=== PATIENT | female | born 1950 | race Caucasian/White ===

== ENCOUNTER 2018-02-05 09:29 | Emergency (ER) | payer MEDICARE, SELFPAY ==
[2018-02-05 09:38] VITALS: BP 152/75; PULSE 86; RESP 16; TEMP 36.6; O2SAT 100
--- NOTE | 2018-02-05 10:11 | W.ED.GENAD ---
Discharge Plan Discharge Details Chief Complaint: Nausea/Vomit/Diar Clinical Impression: Diarrhea Primary Care Provider: Mona Whitmore ED Provider: Vito St Home Meds and New Rx's Prescriptions: Continue ascorbic acid (vitamin C) 1,000 MG tablet 1,000 mg PO DAILY RF: 0 Lactobacillus acidophilus 1 MG tablet 1 cap PO DAILY RF: 0 acetaminophen [Tylenol] 325 MG tablet 1 tab PO PRN PRNRF: 0 Discharge Instructions Additional Instructions: follow up with your primary care provider within 1-2 weeks if you have severe worsening abdominal pain or persistent vomit return to the emergency department Discharge Data Discharge Physician: Vito St Medical Decision Making MDM Narrative Medical decision making narrative: Pt comes in with intermittent diarrhea since Last August but has been more constant the past week. Denies any travel other than going to [place] earlier this year. No fevers, chills, chest pain, pressure. She has mild lower abdominal discomfort on exam with no acute abdominal exam findings. Given the tenderness will obtain ct to eval for diverticulitis and also eval for electrolyte abnormalities. She could have inflammatory bowel diseasea vs irritable bowel. She was advised if she can give us a stool sample I would send this for stool studies pt's labs unremarkable, mild low K. Awaiting imaging imaging on my read and Dr. butler shows no acute findings. Will have her f/u with pcp and she was not able to provide stool studies here so will send her home with this. Return precautions given Differential Diagnosis diverticulitis, ibs, irritable bowel Imaging Data Radiologic Study: Attestation: I personally reviewed and interpreted this imaging study as follows: Imaging: CT Scan Radiologist's impression: no acute findings Lab Data Lab results reviewed: Yes I reviewed the patient's lab results. HPI - General Adult General Mode of arrival: ambulatory. Date/Time Provider Initiated Documentation: 02/05/18 10:00. Limitations to Documentation: no limitations. Information obtained by: patient. History of Present Illness 67 year old F presents to the emergency department with the chief complaint of diarrhea, described as moderate, with intensity rated at 4. Quality is described as aching, and is localized to the abdomen. Patient reports no radiation. Patient started experiencing this month(s) (5) and it has been intermittent. No relieving factors improve symptom(s), No exacerbating factors reported . Patient notes other (manny abdominal pain). Patient did receive the following treatments prior to arrival, none Related Data Home Medications Medication Instructions Recorded Confirmed Lactobacillus acidophilus 1 cap PO DAILY 04/29/14 02/05/18 ascorbic acid (vitamin C) 1,000 mg PO DAILY 04/29/14 02/05/18 acetaminophen [Tylenol] 1 tab PO PRN PRN 06/25/14 02/05/18 Allergies Allergy/AdvReac Type Severity Reaction Status Date / Time doxycycline Allergy Severe systemic Unverified 02/05/18 10:33 reaction/swelling shellfish derived Allergy Unknown Unverified 02/05/18 10:33 ciprofloxacin [From Cipro] Allergy Unverified 02/05/18 10:35 cortisone AdvReac Mild shakes Unverified 02/05/18 10:33 OPIATES Allergy Intermediate PANIC Uncoded 02/05/18 10:33 ATTACKS General Stated Complaint: Nausea/Vomit/Diar UMBERTO: 3 Review of Systems Review of Systems All systems reviewed & are unremarkable except as noted in HPI and below Constitutional Denies chills, Denies fever(s) and Denies weakness Eyes Patient Denies loss of vision ENT Denies change in voice Cardiovascular Denies chest pain and Denies dyspnea Respiratory Denies dyspnea Gastrointestinal Reports abdominal pain, Reports diarrhea, Reports nausea and Denies vomiting Genitourinary Denies dysuria Musculoskeletal Denies joint swelling Integumentary/Breasts Denies rash Neurologic Denies loss of vision and Denies weakness Psychiatric Denies depression Endocrine Denies cold intolerance and Denies heat intolerance Allergic/Immunologic Reports urticaria PFSH Social History Smoking/Tobacco Use Status: Former Tobacco Use Exam Const General: no acute distress Orientation: alert [facility] Head: normal to inspection Ears: external ears normal General nose exam: external nose normal Mouth: moist mucous membranes Eyes General: appearance normal, both eyes and all related structures Neck Neck: normal visual inspection Resp Effort & Inspection: normal respiratory effort and able to speak in complete sentences Cardio Rate: regular rate GI Inspection: other (mild lower abdominal tenderness on deep palpation with no guarding or rebound, no upper abdominal pain) Palpation: soft Skin General skin exam: no rashes or lesions noted Neuro General: alert and oriented x3 Extrem General: normal to inspection Psych Mental Status: mental status grossly normal Course Vital Signs Temperature 36.6 C 02/05/18 09:38 Pulse 86 02/05/18 09:38 Respiratory Rate 16 02/05/18 09:38 Blood Pressure 152/75 H 02/05/18 09:38 Pulse Oximetry 100 02/05/18 09:38 Temperature 36.6 C 02/05/18 09:38 Pulse 86 02/05/18 09:38 Respiratory Rate 16 02/05/18 09:38 Blood Pressure 152/75 H 02/05/18 09:38 Pulse Oximetry 100 02/05/18 09:38
--- NOTE | 2018-02-05 10:14 | ED.GENADUL_ITS ---
Discharge Plan Discharge Details Chief Complaint: Nausea/Vomit/Diar Clinical Impression: Diarrhea Primary Care Provider: Mona Whitmore ED Provider: Vito St Home Meds and New Rx's Prescriptions: Continue ascorbic acid (vitamin C) 1,000 MG tablet 1,000 mg PO DAILY RF: 0 Lactobacillus acidophilus 1 MG tablet 1 cap PO DAILY RF: 0 acetaminophen [Tylenol] 325 MG tablet 1 tab PO PRN PRNRF: 0 Discharge Instructions Additional Instructions: follow up with your primary care provider within 1-2 weeks if you have severe worsening abdominal pain or persistent vomit return to the emergency department Discharge Data Discharge Physician: Vito St Medical Decision Making MDM Narrative Medical decision making narrative: Pt comes in with intermittent diarrhea since Last August but has been more constant the past week. Denies any travel other than going to [place] earlier this year. No fevers, chills, chest pain, pressure. She has mild lower abdominal discomfort on exam with no acute abdominal exam findings. Given the tenderness will obtain ct to eval for diverticulitis and also eval for electrolyte abnormalities. She could have inflammatory bowel diseasea vs irritable bowel. She was advised if she can give us a stool sample I would send this for stool studies pt's labs unremarkable, mild low K. Awaiting imaging imaging on my read and Dr. butler shows no acute findings. Will have her f/u with pcp and she was not able to provide stool studies here so will send her home with this. Return precautions given Differential Diagnosis diverticulitis, ibs, irritable bowel Imaging Data Radiologic Study: Attestation: I personally reviewed and interpreted this imaging study as follows: Imaging: CT Scan Radiologist's impression: no acute findings Lab Data Lab results reviewed: Yes I reviewed the patient's lab results. HPI - General Adult General Mode of arrival: ambulatory . Date/Time Provider Initiated Documentation: 02/05/18 10:00 . Limitations to Documentation: no limitations . Information obtained by: patient . History of Present Illness 67 year old F presents to the emergency department with the chief complaint of diarrhea, described as moderate, with intensity rated at 4. Quality is described as aching, and is localized to the abdomen. Patient reports no radiation. Patient started experiencing this month(s) (5) and it has been intermittent. No relieving factors improve symptom(s), No exacerbating factors reported . Patient notes other (manny abdominal pain). Patient did receive the following treatments prior to arrival, none Related Data Home Medications Medication Instructions Recorded Confirmed Lactobacillus acidophilus 1 cap PO DAILY 04/29/14 02/05/18 ascorbic acid (vitamin C) 1,000 mg PO DAILY 04/29/14 02/05/18 acetaminophen [Tylenol] 1 tab PO PRN PRN 06/25/14 02/05/18 Allergies Allergy/AdvReac Type Severity Reaction Status Date / Time doxycycline Allergy Severe systemic Unverified 02/05/18 10:33 reaction/swelling shellfish derived Allergy Unknown Unverified 02/05/18 10:33 ciprofloxacin [From Cipro] Allergy Unverified 02/05/18 10:35 cortisone AdvReac Mild shakes Unverified 02/05/18 10:33 OPIATES Allergy Intermediate PANIC Uncoded 02/05/18 10:33 ATTACKS General Stated Complaint: Nausea/Vomit/Diar UMBERTO: 3 Review of Systems Review of Systems All systems reviewed & are unremarkable except as noted in HPI and below Constitutional Denies chills, Denies fever(s) and Denies weakness Eyes Patient Denies loss of vision ENT Denies change in voice Cardiovascular Denies chest pain and Denies dyspnea Respiratory Denies dyspnea Gastrointestinal Reports abdominal pain, Reports diarrhea, Reports nausea and Denies vomiting Genitourinary Denies dysuria Musculoskeletal Denies joint swelling Integumentary/Breasts Denies rash Neurologic Denies loss of vision and Denies weakness Psychiatric Denies depression Endocrine Denies cold intolerance and Denies heat intolerance Allergic/Immunologic Reports urticaria PFSH Social History Smoking/Tobacco Use Status: Former Tobacco Use Exam Const General: no acute distress Orientation: alert [facility] Head: normal to inspection Ears: external ears normal General nose exam: external nose normal Mouth: moist mucous membranes Eyes General: appearance normal, both eyes and all related structures Neck Neck: normal visual inspection Resp Effort & Inspection: normal respiratory effort and able to speak in complete sentences Cardio Rate: regular rate GI Inspection: other (mild lower abdominal tenderness on deep palpation with no guarding or rebound, no upper abdominal pain) Palpation: soft Skin General skin exam: no rashes or lesions noted Neuro General: alert and oriented x3 Extrem General: normal to inspection Psych Mental Status: mental status grossly normal Course Vital Signs Temperature 36.6 C 02/05/18 09:38 Pulse 86 02/05/18 09:38 Respiratory Rate 16 02/05/18 09:38 Blood Pressure 152/75 H 02/05/18 09:38 Pulse Oximetry 100 02/05/18 09:38 Temperature 36.6 C 02/05/18 09:38 Pulse 86 02/05/18 09:38 Respiratory Rate 16 02/05/18 09:38 Blood Pressure 152/75 H 02/05/18 09:38 Pulse Oximetry 100 02/05/18 09:38
[2018-02-05 10:31] LABS: Abs Immature Grans 0.02 k/cumm (0.0-0.09); Absolute Basophil Count 0.01 k/cumm (0.0-0.2); Absolute Eosinophil Count 0.01 k/cumm (0.0-0.7); Absolute Lymphocyte Count 0.83 k/cumm (1.2-3.4); Absolute Monocyte Count 0.22 k/cumm (0.11-0.7); Absolute Neutrophil Count 4.06 k/cumm (1.2-6.7); Basophils % 0.2; Eosinophils % 0.2; HCT 42.7 % (36.0-46.0); Immature Grans % 0.4; Lymphocytes % 16.1; Mean Corp. HGB Concentration 35.1 g/dL (32.0-36.0); Mean Corpuscular Hemoglobin 30.9 pg (27.0-33.0); Mean Platelet Volume 10.6 fL (8.0-11.0); Monocytes % 4.3; Neutrophils % 78.8; Platelet Count 205 x1000/uL (130-400); RBC 4.85 m/cumm (4.00-5.20); RBC Distribution Width 11.8 % (11.7-14.6); White Blood Cell Count 5.15 k/cumm (4.4-10.8)
[2018-02-05 10:41] LABS: ALT 20 U/L (12-78); AST 22 U/L (15-37); Albumin 4.2 g/dL (3.4-5.0); Anion Gap 14.9 mmol/L (3-11); BUN 13 mg/dL (7-18); CO2 22.1 mmol/L (21.0-32.0); CREATININE 0.93 mg/dL (0.55-1.02); Calcium 9.1 mg/dL (8.5-10.1); Chloride 97 mmol/L (98-107); Glucose 213 mg/dL (70-100); Lipase 111 U/L (73-393); Potassium 3.3 mmol/L (3.5-5.1); Sodium 134 mmol/L (136-145)
[2018-02-05 11:07] LABS: Alkaline Phosphatase 55 U/L (46-116); Bilirubin, Total 0.9 mg/dL (0.2-1.0); Total Protein 7.8 g/dL (6.4-8.2)
--- NOTE | 2018-02-05 11:29 | DI.CT_ITS ---
SYMPTOM/DIAGNOSIS: NAUSEA, LOWER ABDOMINAL PAIN DIARRHEA CT ABDOMEN AND PELVIS: Comparison is made with 01 May 2016. Images were performed from the lung bases through the ischial tuberosities after IV and without oral contrast. The heart size is normal. The lung bases are clear. A 2.2 cm hypodense lesion is again noted in the right lobe of the liver, consistent with an hemangioma. The patient is status post cholecystectomy. The spleen, pancreas, adrenals and kidneys are unremarkable. The patient is status post hysterectomy. The bladder is unremarkable. There is diverticulosis of the sigmoid region. There is no evidence of diverticulitis. No bowel dilatation or wall thickening is seen. The appendix appears normal. IMPRESSION: Diverticulosis without evidence of diverticulitis. No inflammatory changes are seen involving the small or large bowel.
[2018-02-05] MEDS: Omnipaque 350 MG/ML 100 ML BTL IJ (11:31)
[2018-02-05 12:04] VITALS: BP 152/75; PULSE 86; RESP 16; TEMP 36.6; O2SAT 100
== END 2018-02-05 12:15 ==
LOC: ER 12:10
PROVIDERS: Emergency Provider Emergency Medicine; PCP Nurse Practitioner Family
DX: R19.7 Diarrhea, unspecified (principal); R10.30 Lower abdominal pain, unspecified
CPT/HCPCS: 36415; 80053; 83690; 87505; 93005; 99285; 74177; 85025; 93010; J3490

== ENCOUNTER 2018-02-06 10:59 | Outpatient (REF) | payer MEDICARE, SELFPAY ==
[2018-02-07 12:45] LABS: Campylobacter PCR SEE COMMENTS; Salmonella PCR SEE COMMENTS; Shiga Toxin PCR SEE COMMENTS; Shigella/Enteroinvasive Ecoli SEE COMMENTS
== END 2018-02-06 11:19 ==
LOC: LBN 10:59
PROVIDERS: PCP Nurse Practitioner Family; Visit Provider Emergency Medicine
DX: R19.7 Diarrhea, unspecified (principal)
CPT/HCPCS: 87505; 87324

== ENCOUNTER 2018-03-16 13:08 | Outpatient (REF) | payer MEDICARE, SELFPAY ==
[2018-03-16 21:14] LABS: Cholesterol 216 mg/dL (50-200); HDL Cholesterol 56 mg/dL (40-60); LDL CHOLESTEROL 148 mg/dL (<100); Triglyceride 81 mg/dL (30-150)
[2018-03-19 09:27] LABS: Hepatitis C Ab w Rflx HCV PCR Negative (NEGAT)
== END 2018-03-16 13:28 ==
LOC: NCHCN 13:08
PROVIDERS: PCP Nurse Practitioner Family; Visit Provider Nurse Practitioner Family
DX: I10 Essential (primary) hypertension (principal); R61 Generalized hyperhidrosis; R55 Syncope and collapse; E78.5 Hyperlipidemia, unspecified; G43.109 Migraine with aura, not intractable, without status migrainosus; M19.90 Unspecified osteoarthritis, unspecified site; Z11.59 Encounter for screening for other viral diseases
CPT/HCPCS: 80061; 83721; 86803; 84443

== ENCOUNTER 2018-04-03 00:31 | Outpatient (CLI) | payer MEDICARE, SELFPAY ==
--- NOTE | 2018-04-03 15:10 | DI.MAMMO_ITS ---
SYMPTOM/DIAGNOSIS: SCREENING, Z12.31 MAMMOGRAMS: Mammograms were interpreted according to the usual protocol including computer analysis with CAD system, tomosynthesis and C view imaging. Comparison is made with the prior examinations. Breast density, category C. No suspicious masses or microcalcifications are seen. There is a calcified nodule in the upper outer quadrant of the left breast. It is unchanged in size compared to the prior examination from 2015. The skin and axilla are unremarkable. IMPRESSION: No evidence for malignancy. Yearly mammography is recommended. Category 2. MQSA ASSESSMENT OF FINDINGS: Negative with benign findings. Category 2. Patient will receive a letter notifying them of these results. Bi-RADS category C. The breasts are heterogeneously dense, which may obscure small masses.
--- NOTE | 2018-04-03 15:30 | DI.DEXA_ITS ---
SYMPTOM/DIAGNOSIS: SCREENING FOR OSTEOPOROSIS IN POSTMENOPAUSAL WOMAN, Z78.0 DEXA SCAN: Dexa scan was performed according to the usual protocol. The scanogram is unremarkable. For the left forearm, a T score of -1.7 and a Z score of 0.1 are consistent with osteopenia and an increased fracture risk. For the left hip, a T score of -1.1 and a Z score of 0.2 are consistent with osteopenia and an increased fracture risk. For the lumbar spine, a T score of -0.6 and a Z score of 1.3 are within the normal range.
== END 2018-04-03 00:51 ==
PROVIDERS: PCP Nurse Practitioner Family; Visit Provider Nurse Practitioner Family
DX: Z12.31 Encounter for screening mammogram for malignant neoplasm of breast (principal); M85.88 Other specified disorders of bone density and structure, other site; Z78.0 Asymptomatic menopausal state
CPT/HCPCS: 77063; 77067; 77080

== ENCOUNTER 2019-07-30 10:27 | Outpatient (REF) | payer MEDICARE, SELFPAY ==
[2019-07-30 14:11] LABS: PROTEIN < 6.0 mg/dL
[2019-07-30 14:12] LABS: COMMENT (LAB VIEW ONLY) 27.17 mg/dL
[2019-07-30 14:23] LABS: Anion Gap 6.5 mmol/L (3-11); BUN 14 mg/dL (7-18); CO2 30.5 mmol/L (21.0-32.0); CREATININE 0.78 mg/dL (0.55-1.02); Calcium 9.4 mg/dL (8.5-10.1); Calculated LDL 154 mg/dL (<100); Chloride 105 mmol/L (98-107); Cholesterol 239 mg/dL (<200); Glucose 88 mg/dL (74-106); HDL Cholesterol 60 mg/dL (40-60); Potassium 4.5 mmol/L (3.5-5.1); Sodium 142 mmol/L (136-145); Triglyceride 126 mg/dL (<150)
[2019-07-30 14:24] LABS: COMMENT (LAB VIEW ONLY) 25.79 mg/dL; Microalb ug/mg Crea 10.9 ug/mg Cr
== END 2019-07-30 10:47 ==
LOC: NCHCN 10:27
PROVIDERS: PCP Nurse Practitioner Family; Visit Provider Nurse Practitioner Family
DX: I10 Essential (primary) hypertension (principal); E78.5 Hyperlipidemia, unspecified
CPT/HCPCS: 80048; 80061; 82043; 82565; 82570; 84156

== ENCOUNTER 2021-01-04 14:10 | Outpatient (CLI) | payer MEDICARE, SELFPAY ==
--- NOTE | 2021-01-04 | DI.MAMMO_ITS ---
Exam(s) MAMMO SCREENING EXAM: MAMMO SCREENING CLINICAL HISTORY: SCREENING, Z12.39 TECHNIQUE: Mammograms were interpreted according to the usual protocol including computer analysis w [facility] CAD system, tomosynthesis and C-view imaging. COMPARISON: 2014 through 2017 FINDINGS: The breasts are composed of heterogeneously dense fibroglandular densities, Breast Density category C . No suspicious masses or suspicious microcalcifications are seen. Decrease in size of the previously noted small nodule upper-outer quadrant left breast consistent with a fibroadenoma. No skin thickening or abnormal axillary lymph nodes are seen. There has been no significant change from prior exams. IMPRESSION: BI-RADS Cat 2 - Benign Findings Yearly screening mammography is recommended. Breast Density Category C, heterogeneously Dense. The mammogram demonstrates the patient's breast tissue is dense. Dense breast tissue is very common a nd is not abnormal but dense breast tissue can make it harder to find cancer on a mammogram. Also, de nse breast tissue may increase breast cancer risk. This information about the result of the mammogram report was provided to the patient to raise their awareness. Use this report when you speak with the patient about their risks for breast cancer, which includes their family history. At that time, you may recommend additional screening tests (Ultrasound or MRI) as they might be useful based on their r isk. A negative radiographic report should not delay biopsy if a dominant or clinically suspicious mass is present. Up to ten percent of cancers are not identified on mammography. A negative report may reinforce clinical impression. Adenosis and dense breasts may obscure an underlying neoplasm. False positive reports average 6 to 10%.
--- NOTE | 2021-01-04 14:30 | DI.RAD_ITS ---
Exam(s) XR TIB/FIB RT EXAM: XR TIB/FIB RT CLINICAL HISTORY: RT LEG PAIN. TECHNIQUE: 2D digital imaging was performed. COMPARISON: CR RIGHT KNEE LIMITED 1 OR 2 VIEW from 05/09/2014 CR RIGHT KNEE LIMITED 1 OR 2 VIEW from 05/09/2014 ECG EKG from 02/05/2018 ECG EKG from 02/05/2018 FINDINGS: BONES: No acute fracture is present. No bony destructive lesion is seen. There is a total knee prosth esis. No surrounding lucencies are seen. A small enchondroma is noted in the mid tibial shaft. The re is spurring at the Achilles insertion on the calcaneus. SOFT TISSUE: Normal. IMPRESSION: Unremarkable total knee prosthesis. Incidental small tibial enchondroma. DATA REPOSITORY: RADIATION DOSE DELIVERED:
== END 2021-01-04 14:30 ==
PROVIDERS: PCP Nurse Practitioner Family; Visit Provider Nurse Practitioner Family
DX: Z12.31 Encounter for screening mammogram for malignant neoplasm of breast (principal); D16.21 Benign neoplasm of long bones of right lower limb; Z96.651 Presence of right artificial knee joint
CPT/HCPCS: 77063; 77067; 73590

== ENCOUNTER 2021-02-14 05:27 | Inpatient (IN) | payer MEDICARE, SELFPAY ==
[2021-02-14] VITALS (30 sets, daily range): BP systolic 136–164; BP diastolic 66–109; PULSE 54–75; RESP 16–18; TEMP 36.1–37.1; O2SAT 96–99
--- NOTE | 2021-02-14 05:28 | ED.GENADUL_ITS ---
Discharge Plan Disposition Patient Disposition: [facility] INPATIENT Condition: Stable Discharge Details Clinical Impression: Acute diverticulitis Admit Date/Time: 02/14/21 08:36 Admit Provider: Yoana Arndt Attending Provider: Yoana Arndt Primary Care Provider: Mona Whitmore ED Provider: Jacqui Lu Discharge Data Discharge Date/Time-TO BE ENTERED AT DEPARTURE: 02/14/21 09:55 Medical Decision Making <Lex Peña MD - Last Filed: 02/14/21 19:59> Patient presenting with abdominal pain for last 24 hours. Tender with deep palpation but no guarding or rebound. Loss of appetite but no other GI symptoms. No fever she is aware of. Previous abdominal surgeries including hysterectomy and cholecystectomy. Will place line and give fluids, check laboratory studies, obtain CT of the abdomen pelvis. Laboratory studies are unremarkable. White count is normal. Urinalysis suggest possibility of UTI though symptoms not completely consistent with his. CT scan read is still pending. Patient will be signed out to oncoming physician to review CAT scan read and determine disposition. Lab Data Lab results reviewed: Yes I reviewed the patient's lab results. <Jacqui Lu DO - Last Filed: 02/15/21 17:28> Case endorsed to follow-up on CT imaging. CT imaging notes diverticulitis of the mid sigmoid colon with moderate inflammatory changes. No perforation. Findings suggestive of developing intramural abscess. CT findings reviewed with Dr. Arndt --there is significant inflammatory changes more pronounced than her previous bout of diverticulitis -- recommends and accepts pt for admission with IV antibiotics. Patient reassessed and she does endorse pain. She states this episode is worse than her previous episode of diverticulitis. She is tender in the suprapubic region but nontoxic. She is agreeable with plan for admission. She has an adverse reaction to Cipro which she states causes tachycardia. Dr. Lou agrees with plan for IV Zosyn. Will order maintenance fluid infusion and IV Tylenol. Medical Records Medical records reviewed: Yes I reviewed the patient's medical records. Imaging Data Radiologic Study: Radiologist's impression: CT Abdomen And Pelvis With Contrast Exam date and time: 02/14/2021 5:52 AM Age: 70 years old Clinical indication: Localized; Lower; Patient HX: Low abdominal pain TECHNIQUE: Imaging protocol: Computed tomography of the abdomen and pelvis with contrast. COMPARISON: CT Abdomen^ROUTINE ABDOMEN PELVIS WITH CONTRAST (Adult) 02/05/2018 11:11 AM FINDINGS: Lungs: Mild dependent changes at the lung bases. Liver: Stable 2 x 1.4 cm hypoattenuating subcapsular lesion in the lateral right hepatic lobe, which may represent a hemangioma, and has been seen on studies dating back to 03/01/2016. Focal fatty infiltration of the liver is seen adjacent to the falciform ligament. Otherwise unremarkable liver. Gallbladder and bile ducts: The gallbladder is surgically absent. No biliary dilatation. Pancreas: Normal. No ductal dilation. Spleen: Normal. No splenomegaly. Adrenal glands: Normal. No mass. Kidneys and ureters: Normal. No hydronephrosis. Stomach and bowel: Scattered colonic diverticula. The mid sigmoid colon demonstrates moderate inflammatory changes, with wall thickening and pericolonic fat stranding. The inflamed colonic segment measures approximately 7 cm in length. There is an approximately 2 x 1.7 x 0.8 cm mildly rim enhancing low-attenuation focus in the wall of the inflamed segment, which may represent a developing intramural abscess (image 63/series 4, image 48/series 6). No other gross bowel abnormalities. No bowel obstruction. Appendix: No evidence of appendicitis. Intraperitoneal space: Small amount of free fluid in the cul-de-sac. No evidence of intraperitoneal free air. Vasculature: Unremarkable. No abdominal aortic aneurysm. Lymph nodes: Unremarkable. No enlarged lymph nodes. Urinary bladder: Unremarkable as visualized. Reproductive: The uterus is surgically absent. Bones/joints: No acute or suspicious osseous abnormalities. Grade I degenerative anterior spondylolisthesis of L4 on L5. Mild to moderate disc space height loss at L4/L5. Soft tissues: Unremarkable. IMPRESSION: 1. Diverticulitis of the mid sigmoid colon, with moderate inflammatory changes. No perforation. Findings suggestive of developing intramural abscess. 2. Small amount of free fluid in the cul-de-sac. Lab Data Lab results reviewed: Yes I reviewed the patient's lab results. HPI <Lex Peña MD - Last Filed: 02/14/21 19:59> General Mode of arrival: ambulatory . Date/Time Provider Initiated Documentation: 02/14/21 05:28 . Limitations to Documentation: no limitations . Information obtained by: patient, RN notes reviewed and old records reviewed . HPI Narrative: Patient presents to ED with lower abdominal pain for the last 24 hours. Pain is constant but waxes and wanes in intensity. There is no abdomen pelvis the nature. She has no associated nausea, vomiting, diarrhea. She has no urinary symptoms. This seems to be some radiation to the back and rectal area. She has loss of appetite. She denies fever. Previous hysterectomy and cholecystectomy but is pretty sure she still has her appendix. Related Data Home Medications Medication Instructions Recorded Confirmed Lactobacillus acidophilus 1 cap PO DAILY 04/29/14 02/14/21 ascorbic acid (vitamin C) 1,000 mg PO DAILY 04/29/14 02/14/21 acetaminophen [Tylenol] 1 tab PO PRN PRN 06/25/14 02/14/21 epinephrine 0.3 mg SUBCUT DIRECTED PRN 02/14/21 02/14/21 hydrochlorothiazide 12.5 mg PO DAILY 02/14/21 02/14/21 propranolol 20 mg PO BID 02/14/21 02/14/21 simvastatin 40 mg PO DAILY 02/14/21 02/14/21 Allergies Allergy/AdvReac Type Severity Reaction Status Date / Time doxycycline Allergy Severe systemic Unverified 02/14/21 05:36 reaction/swelling shellfish derived Allergy Unknown Unverified 02/14/21 05:36 ciprofloxacin [From Cipro] Allergy Unverified 02/14/21 05:36 cortisone AdvReac Mild shakes Unverified 02/14/21 05:36 OPIATES Allergy Intermediate PANIC Uncoded 02/14/21 05:36 ATTACKS General UMBERTO: 3 Review of Systems <Lex Peña MD - Last Filed: 02/14/21 19:59> Narrative: As documented in HPI otherwise negative as below. Const: no fever, chills, weakness Resp: no cough, SOB, pleuritic pain CV: no CP, diaphoresis, edema, syncope GI: no nausea, vomiting, diarrhea Neuro: no headache, numbness, focal weakness, confusion PFSH <Lex Peña MD - Last Filed: 02/14/21 19:59> Medical History Chronic migraine (07/07/14) Essential hypertension Hx of skin cancer, basal cell Surgical History S/P cholecystectomy S/P hysterectomy S/P TKR (total knee replacement) Family History Mother Colon cancer Social History Smoking/Tobacco Use Status: Former Tobacco Use Smoking risk assessment performed?: Yes Alcohol Intake: never Drug use: Never Substance use type: does not use Do you feel safe at home: Yes Do you feel safe in your relationship?: Yes Exam <Lex Peña MD - Last Filed: 02/14/21 19:59> Narrative Exam Narrative: Const: WDWN female in NAD. HEENT: NC/AT. Normal facial exam. Eyes: Normal conjunctiva and sclera. Neck: Supple. Trachea midline. Lungs: Normal respiratory effort. Lungs are clear. Cor: RRR without murmur/gallop. Good radial pulses. GI: Soft and ND. Some tenderness LLQ/suprapubic with deep palpation. No guarding or rebound. Neuro: A+O x 3. Normal speech, mentation, gait. Cranial nerves II - XII grossly intact. No gross motor or sensory deficit. Ext: No C/C/E. Skin: Warm and dry without rash. Sign Out <Lex Peña MD - Last Filed: 02/14/21 19:59> Sign Out Data: Sign Out Comment: Pending CT read. Last updated by Lex Peña MD at 02/14/21 07:51
--- NOTE | 2021-02-14 05:45 | DI.CT_ITS ---
Exam(s) CT ABDOMEN PELVIS W EXAM: CT ABDOMEN PELVIS W INDICATION: low abdominal pain. TECHNIQUE: FINDINGS: CT examination of the abdomen and pelvis was performed with a bolus infusion of 84 cc of Omnipaque 35 0. Images obtained through the lung bases are unremarkable. The liver contains multiple small stable low-attenuation lesions, likely hemangioma period. Gallbladder and bile ducts are CT normal. Pancreas appears normal. Spleen is unremarkable in appearance. Adrenals appear normal. The kidneys are unremarkable with no evidence of hydronephrosis, nephrolithiasis, or renal mass.. Ur inary bladder unremarkable. Abdominal aorta is of normal diameter and no major vascular abnormality is seen. No abdominal wall hernia. No abdominal or pelvic adenopathy. Uterus is atrophic or absent. No pelvic mass identified. Appendix is not specifically visualized but there is no evidence of appendicitis. Note is made of ma rked wall thickening of sigmoid colon with pericolonic fat edema, small quantity of free pelvic fluid , and suspected approximately 2 cm greatest diameter intramural abscess, the findings as described ar e consistent with acute diverticulitis. No evidence of perforation into the peritoneal cavity. No r emote abscess formation identified. No evidence of obstruction. IMPRESSION: Findings consistent with acute sigmoid diverticulitis as described above. Possible small intramural abscess. No evidence of perforation or obstruction. RADIATION DOSE DELIVERED: 727.49mGy.cm Total DLP 727.49mGy.cm Total DLP CTDIvol RADIATION OPTIMIZATION: All CT scans at this facility use at least one of these dose optimization te chniques: automated exposure control; mA and/or kV adjustment per patient size (includes targeted exa ms where dose is matched to clinical indication); or iterative reconstruction.
[2021-02-14] MEDS: Lactated Ringers 1,000 ML 1000 ML IV (05:55)
[2021-02-14 06:07] LABS: Abs Immature Grans 0.03 10^3/uL (0.0-0.06); Absolute Basophil Count 0.02 10^3/uL (0.0-0.2); Absolute Eosinophil Count 0.07 10^3/uL (0.0-0.7); Absolute Lymphocyte Count 2.24 10^3/uL (1.2-3.4); Absolute Monocyte Count 0.71 10^3/uL (0.1-0.8); Absolute Neutrophil Count 5.55 10^3/uL (1.2-6.7); Basophils % 0.2; Eosinophils % 0.8; HCT 40.8 % (36.0-46.0); HGB 13.9 g/dL (11.2-15.7); Immature Grans % 0.3; MCH 30.9 pg (27.0-33.0); MCHC 34.1 % (32.0-36.0); MCV 90.7 fL (80-95); MPV 10.1 fL (8.0-11.0); Monocytes % 8.2; Neutrophils % 64.5; Nucleated RBC 0 %; Platelet Count 221 10^3/uL (130-400); RDW 11.8 % (11.7-14.6); RDW-SD 39.6 fL; WBC 8.62 10^3/uL (4.4-10.8)
[2021-02-14 06:25] LABS: ALT 20 U/L (14-59); AST 18 U/L (15-37); Albumin 3.9 g/dL (3.4-5.0); Alkaline Phosphatase 41 U/L (46-116); Anion Gap 6.1 mmol/L (3-11); BUN 14 mg/dL (7-18); Bilirubin, Total 0.7 mg/dL (0.2-1.0); CO2 30.9 mmol/L (21.0-32.0); Calcium 9.3 mg/dL (8.5-10.1); Chloride 102 mmol/L (98-107); Estimated GFR 54.97 (mL/min/1.73m2); Glucose 105 mg/dL (74-106); Lipase 82 U/L (73-393); Potassium 3.5 mmol/L (3.5-5.1); Sodium 139 mmol/L (136-145); Total Protein 7.1 g/dL (6.4-8.2)
[2021-02-14] MEDS: Omnipaque 350 MG/ML 100 ML BTL IJ (06:32)
--- NOTE | 2021-02-14 06:36 | NUR.NOTE ---
To DI per cart, with lidar technician.Nursing Note:
[2021-02-14 07:30] LABS: Bilirubin Negative (Negative); Blood Trace-intact (Negative); Clarity Sl Cloudy (Clear); Glucose Negative (Negative); Ketones Negative (Negative); Leukocyte Esterase Small (Negative); Nitrite Negative (Negative); Specific Gravity 1.015 (1.005-1.025); Urobilinogen 0.2 EU/dL (Up TO 0.2)
[2021-02-14 07:40] LABS: Bacteria Few HPF (Negative); Crystals Negative HPF (Negative); Epithelial Cells Rare HPF (Negative); Mucus Trace (Negative)
[2021-02-14 07:41] LABS: C & S Indicated? Yes; Casts Negative LPF (Negative)
--- NOTE | 2021-02-14 08:09 | DI.VRAD_ITS ---
PROCEDURE INFORMATION: Exam: CT Abdomen And Pelvis With Contrast Exam date and time: 02/14/2021 5:52 AM Age: 70 years old Clinical indication: Localized; Lower; Patient HX: Low abdominal pain TECHNIQUE: Imaging protocol: Computed tomography of the abdomen and pelvis with contrast. COMPARISON: CT Abdomen^ROUTINE ABDOMEN PELVIS WITH CONTRAST (Adult) 02/05/2018 11:11 AM FINDINGS: Lungs: Mild dependent changes at the lung bases. Liver: Stable 2 x 1.4 cm hypoattenuating subcapsular lesion in the lateral right hepatic lobe, which may represent a hemangioma, and has been seen on studies dating back to 03/01/2016. Focal fatty infiltration of the liver is seen adjacent to the falciform ligament. Otherwise unremarkable liver. Gallbladder and bile ducts: The gallbladder is surgically absent. No biliary dilatation. Pancreas: Normal. No ductal dilation. Spleen: Normal. No splenomegaly. Adrenal glands: Normal. No mass. Kidneys and ureters: Normal. No hydronephrosis. Stomach and bowel: Scattered colonic diverticula. The mid sigmoid colon demonstrates moderate inflammatory changes, with wall thickening and pericolonic fat stranding. The inflamed colonic segment measures approximately 7 cm in length. There is an approximately 2 x 1.7 x 0.8 cm mildly rim enhancing low-attenuation focus in the wall of the inflamed segment, which may represent a developing intramural abscess (image 63/series 4, image 48/series 6). No other gross bowel abnormalities. No bowel obstruction. Appendix: No evidence of appendicitis. Intraperitoneal space: Small amount of free fluid in the cul-de-sac. No evidence of intraperitoneal free air. Vasculature: Unremarkable. No abdominal aortic aneurysm. Lymph nodes: Unremarkable. No enlarged lymph nodes. Urinary bladder: Unremarkable as visualized. Reproductive: The uterus is surgically absent. Bones/joints: No acute or suspicious osseous abnormalities. Grade I degenerative anterior spondylolisthesis of L4 on L5. Mild to moderate disc space height loss at L4/L5. Soft tissues: Unremarkable. IMPRESSION: 1. Diverticulitis of the mid sigmoid colon, with moderate inflammatory changes. No perforation. Findings suggestive of developing intramural abscess. 2. Small amount of free fluid in the cul-de-sac. Dictated and Authenticated by: Sara Velasquez MD. Ordering:SHAKIRA Burnett MD
--- NOTE | 2021-02-14 08:53 | HPE_ITS ---
Date of service: 02/14/21 Time of Service: 10:57 Assessment and Plan Assessment and plan (1) Acute diverticulitis: Status: Acute Assessment and plan: -Continue supportive care with IV Antibiotics, curre ntly on Zosyn, IVF and bowel rest -Hopeful to start clears tomorrow if pain is improved and continue liquid diet with ensure supplementation until pain is resolved -Low fiber diet education -Lovenox and Protonix for DVT and GI prophylaxis -Encourage ambulation -Home meds ordered -Anticipate DC home with PO ABX unless clinically worsens (2) Essential hypertension: Status: Chronic (3) Chronic migraine: Status: Chronic History of Present Illness Narrative: 70 year old female with a history of 1 previous episode of uncomplicated diverticulitis that occurred 2 days after a colonoscopy in 2016 who presented to the emergency department with crampy lower abdominal discomfort that has been worsening over the last 2-3 days. Patient states she has been nervous to get another colonoscopy as her previous episode of diverticulitis occurred immediately after it. She states this episode is worse than the previous one with more significant discomfort. She denies any fevers, chills, nausea or vomiting. 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 She understands the reason behind IV antibiotics as a larger portion of her colon is inflamed and edematous with a possible intramural abscess forming. She has only required Tylenol for pain control thus far and was started on IV Zosyn in the emergency department. She is mostly vegetarian and eats mostly organic without any history of changes in stool formation or patterns. She does express concern that her mother had colon cancer in her 70's but appears to have eliminated all of the environmental factors. She does also have a remote history of Typhoid fever while living in [place] several years ago. Review of Systems Constitutional Constitutional: Denies anorexia, Denies chills, Denies fatigue and Denies fever(s) Cardiovascular Cardiovascular: Denies chest pain and Denies dyspnea Respiratory Respiratory: Denies dyspnea Gastrointestinal Gastrointestinal: Reports abdominal pain (lower abdomen L>R), Denies change in bowel habits, Denies change in stool character, Denies constipation, Denies diarrhea, Denies nausea and Denies vomiting Genitourinary Genitourinary: Denies dysuria Endocrine Endocrine: Denies fatigue [facility] Medical History Chronic migraine (07/07/14) Essential hypertension Hx of skin cancer, basal cell Surgical History S/P cholecystectomy S/P hysterectomy S/P TKR (total knee replacement) Family History Mother Colon cancer Social History Smoking/Tobacco Use Status: Former Tobacco Use Smoking risk assessment performed?: Yes Alcohol Intake: never Drug use: Never Substance use type: does not use Do you feel safe at home: Yes Do you feel safe in your relationship?: Yes Meds Allergies and Home Medications Allergies Allergy/AdvReac Type Severity Reaction Status Date / Time doxycycline Allergy Severe systemic Unverified 02/14/21 05:36 reaction/swelling shellfish derived Allergy Unknown Unverified 02/14/21 05:36 ciprofloxacin [From Cipro] Allergy Unverified 02/14/21 05:36 cortisone AdvReac Mild shakes Unverified 02/14/21 05:36 OPIATES Allergy Intermediate PANIC Uncoded 02/14/21 05:36 ATTACKS Home Medications Medication Instructions Recorded Confirmed Type Lactobacillus acidophilus 1 cap PO DAILY 04/29/14 02/14/21 History ascorbic acid (vitamin C) 1,000 mg PO DAILY 04/29/14 02/14/21 History acetaminophen [Tylenol] 1 tab PO PRN PRN 06/25/14 02/14/21 History epinephrine 0.3 mg SUBCUT DIRECTED PRN 02/14/21 02/14/21 History hydrochlorothiazide 12.5 mg PO DAILY 02/14/21 02/14/21 History propranolol 20 mg PO BID 02/14/21 02/14/21 History simvastatin 40 mg PO DAILY 02/14/21 02/14/21 History Exam Const General: cooperative, healthy appearing, comfortable and no acute distress Eyes General: appearance normal, both eyes and all related structures Resp Effort & Inspection: normal respiratory effort and no audible wheezes Cardio Rate: regular rate Rhythm: regular rhythm GI Inspection: non-distended Palpation: soft, no guarding and tender (mild, not peritoneal) in the LLQ and suprapubicly Percussion: normal to percussion Skin General skin exam: no rashes or lesions noted Neuro General: patient alert, patient awake and patient oriented x3 Results Labs Result diagrams: 02/14/21 05:50 02/14/21 05:50 Labs: Laboratory Results - last 24 hr 02/14/21 02/14/21 02/14/21 05:50 05:50 07:05 WBC 8.62 RBC 4.50 Hgb 13.9 Hct 40.8 MCV 90.7 MCH 30.9 MCHC 34.1 RDW 11.8 Plt Count 221 MPV 10.1 Immature Gran % 0.3 Neutrophils % 64.5 Lymphocytes % 26.0 Monocytes % 8.2 Eosinophils % 0.8 Basophils % 0.2 Nucleated RBC % 0 Absolute Neutrophils 5.55 Absolute Lymphocytes 2.24 Absolute Monocytes 0.71 Absolute Eosinophils 0.07 Absolute Basophils 0.02 Sodium 139 Potassium 3.5 Chloride 102 Carbon Dioxide 30.9 Anion Gap 6.1 BUN 14 Creatinine 1.0 Estimated GFR/1.73 m2 54.97 Glucose 105 Calcium 9.3 Total Bilirubin 0.7 AST 18 ALT 20 Alkaline Phosphatase 41 L Total Protein 7.1 Albumin 3.9 Lipase 82 Urine Color Yellow Urine Clarity Sl Cloudy Urine pH 7.0 Ur Specific Rembrandt 1.015 Urine Protein Negative Urine Ketones Negative Urine Blood Trace-intact H Urine Nitrite Negative Urine Bilirubin Negative Urine Urobilinogen 0.2 Ur Leukocyte Esterase Small H Urine RBC 3-5 H Urine WBC 5-10 Ur Epithelial Cells Rare Urine Crystals Negative Urine Bacteria Few Urine Casts Negative Urine Mucus Trace Ur Culture Indicated? Yes Urine Glucose Negative Last Vital Signs Temp 97.0 F L 02/14/21 07:12 Pulse 58 L 02/14/21 07:45 Resp 18 02/14/21 05:30 BP 157/68 H 02/14/21 07:45 Pulse Ox 96 02/14/21 07:50
[2021-02-14] MEDS: ACETAMINOPHEN 1,000 MG/100 ML BTL 400 MG IVPB (09:02)
[2021-02-14] MEDS: Normal Saline 1,000 ML 75 ML IV ×2 (09:02→20:57)
[2021-02-14] MEDS: PIPERACILLIN/TAZO 3.375 GM in Normal Saline 50 ML IVPB (09:10)
[2021-02-14 09:28] LABS: Source Nasal/Nares
[2021-02-14] MEDS: Pantoprazole 40 MG VIAL IVP (12:22)
[2021-02-14] MEDS: Enoxaparin 40 MG/0.4 ML SYR SC (12:22)
[2021-02-14] MEDS: Normal Saline Flush 10 ML SYR IVP ×2 (12:22→20:56)
[2021-02-14 14:19] LABS: COVID-19 PCR Negative (Negative)
[2021-02-14] MEDS: Acetaminophen 325 MG TAB 650 MG PO (19:21)
[2021-02-14] MEDS: Propranolol 20 MG TAB PO (19:21)
[2021-02-14] MEDS: hydrOXYzine HCL 25 MG TAB PO (20:56)
[2021-02-15] VITALS (9 sets, daily range): BP systolic 125–167; BP diastolic 65–90; PULSE 62–112; RESP 12–20; TEMP 36.5–37.2; O2SAT 96–100
[2021-02-15 07:30] LABS: Abs Immature Grans 0.01 10^3/uL (0.0-0.06); Absolute Basophil Count 0.01 10^3/uL (0.0-0.2); Absolute Eosinophil Count 0.04 10^3/uL (0.0-0.7); Absolute Lymphocyte Count 1.61 10^3/uL (1.2-3.4); Absolute Monocyte Count 0.44 10^3/uL (0.1-0.8); Absolute Neutrophil Count 3.01 10^3/uL (1.2-6.7); Basophils % 0.2; Eosinophils % 0.8; HCT 34.3 % (36.0-46.0); HGB 11.5 g/dL (11.2-15.7); Immature Grans % 0.2; Lymphocytes % 31.4; MCH 30.8 pg (27.0-33.0); MCHC 33.5 % (32.0-36.0); MPV 10.6 fL (8.0-11.0); Monocytes % 8.6; Neutrophils % 58.8; Nucleated RBC 0 %; Platelet Count 186 10^3/uL (130-400); RBC 3.73 10^6/uL (3.93-5.22); RDW 11.9 % (11.7-14.6); RDW-SD 40.5 fL; WBC 5.12 10^3/uL (4.4-10.8)
[2021-02-15 07:43] LABS: Prothrombin Time 10.4 sec (9.3-11.0)
[2021-02-15 07:56] LABS: ALT 32 U/L (14-59); AST 31 U/L (15-37); Albumin 3.1 g/dL (3.4-5.0); Alkaline Phosphatase 34 U/L (46-116); Anion Gap 11.8 mmol/L (3-11); BUN 9 mg/dL (7-18); CO2 26.2 mmol/L (21.0-32.0); CREATININE 0.9 mg/dL (0.55-1.02); Calcium 8.5 mg/dL (8.5-10.1); Chloride 106 mmol/L (98-107); Glucose 60 mg/dL (74-106); Potassium 3.1 mmol/L (3.5-5.1); Sodium 144 mmol/L (136-145)
[2021-02-15] MEDS: hydroCHLOROthiazide 12.5 MG TAB PO (08:56)
[2021-02-15] MEDS: Propranolol 20 MG TAB PO ×2 (08:56→19:57)
--- NOTE | 2021-02-15 09:26 | W.PM.PROGNOT ---
Date of Service Date of service: 02/15/21 Time of Service: 09:26 Assessment and Plan Assessment and plan (1) Acute diverticulitis: Status: Acute Assessment and plan: Patient expresses that she has a very important appt tomorrow and is requesting to be d/c JOSHUA for this appt. WBC continues to be nml Start clear liquid diet. Pain is decreased today. -Continue supportive care with IV Antibiotics, currently on Zosyn, IVF and bowel rest -Lovenox and Protonix for DVT and GI prophylaxis -Encourage ambulation and sitting up in the chair -Home meds ordered -Anticipate DC home with PO ABX unless clinically worsens (2) Essential hypertension: Status: Chronic (3) Chronic migraine: Status: Chronic Subjective Subjective Interval history since last seen: Patient reports that she continues to have abdominal discomfort and today she is feeling hungry. Exam Const General: cooperative, healthy appearing and comfortable Orientation: alert and oriented x3 Resp Effort & Inspection: normal respiratory effort, no audible wheezes and no cough GI Inspection: normal to inspection Palpation: soft, no guarding and tender in the LLQ Auscultation: hypoactive bowel sounds Objective Last Vital Signs Temp 36.7 C 02/15/21 08:29 Pulse 76 02/15/21 08:29 Resp 18 02/15/21 08:29 BP 132/67 02/15/21 08:29 Pulse Ox 96 02/15/21 08:29 Laboratory Results - last 24 hr 02/14/21 02/15/21 02/15/21 09:25 06:37 06:37 WBC 5.12 D RBC 3.73 L Hgb 11.5 D Hct 34.3 L MCV 92.0 MCH 30.8 MCHC 33.5 RDW 11.9 Plt Count 186 MPV 10.6 Immature Gran % 0.2 Neutrophils % 58.8 Lymphocytes % 31.4 Monocytes % 8.6 Eosinophils % 0.8 Basophils % 0.2 Nucleated RBC % 0 Absolute Neutrophils 3.01 Absolute Lymphocytes 1.61 Absolute Monocytes 0.44 Absolute Eosinophils 0.04 Absolute Basophils 0.01 PT INR Sodium 144 Potassium 3.1 L Chloride 106 Carbon Dioxide 26.2 Anion Gap 11.8 H BUN 9 Creatinine 0.9 Estimated GFR/1.73 m2 >= 60.00 Glucose 60 L Calcium 8.5 Total Bilirubin 1.0 AST 31 ALT 32 Alkaline Phosphatase 34 L Total Protein 6.0 L Albumin 3.1 L COVID-19 Source Nasal/Nares SARS-CoV-2 (PCR) Negative 02/15/21 06:37 WBC RBC Hgb Hct MCV MCH MCHC RDW Plt Count MPV Immature Gran % Neutrophils % Lymphocytes % Monocytes % Eosinophils % Basophils % Nucleated RBC % Absolute Neutrophils Absolute Lymphocytes Absolute Monocytes Absolute Eosinophils Absolute Basophils PT 10.4 INR 1.0 Sodium Potassium Chloride Carbon Dioxide Anion Gap BUN Creatinine Estimated GFR/1.73 m2 Glucose Calcium Total Bilirubin AST ALT Alkaline Phosphatase Total Protein Albumin COVID-19 Source SARS-CoV-2 (PCR)
--- NOTE | 2021-02-15 10:15 | RT.EKG_ITS ---
APPROVED REPORT Exam: Resting ECG Reason for Exam: chest pain Patient Location: I HR:71 bpm ECG Measurements Heart Rate 71 AXIS TX 185 P 82 QRSd 110 QRS 18 QT 415 T 41 QTc 452 Conclusion Sinus rhythm...normal P axis, V-rate 60- 99 Nonspecific T abnormalities, anterior leads...T <-0.10mV, V2-V4
[2021-02-15 11:37] LABS: Troponin I < 0.05 ng/mL (<0.06)
[2021-02-15] MEDS: Normal Saline 1,000 ML 75 ML IV (11:39)
[2021-02-15] MEDS: Pantoprazole 40 MG VIAL IVP (12:06)
[2021-02-15] MEDS: Enoxaparin 40 MG/0.4 ML SYR SC (12:06)
[2021-02-15] MEDS: Normal Saline Flush 10 ML SYR IVP ×2 (12:07→19:58)
[2021-02-15] MEDS: Potassium Chloride 20 MEQ TABCR 40 MEQ PO ×2 (13:02→15:43)
--- NOTE | 2021-02-15 16:19 | INITIAL_ITS ---
- If Service Date Differs Date of service: 02/15/21 Time of Service: 16:19 Care Management Initial Assess REASON FOR HOSPITALIZATION:: Uncomplicated Diverticulitis PAST MEDICAL HISTORY/PAST SURGICAL HISTORY:: Medical History. Chronic migraine (07/07/14). Essential hypertension. Hx of skin cancer, basal cell. Surgical History. S/P cholecystectomy. S/P hysterectomy. S/P TKR (total knee replacement) PREVIOUS FUNCTIONAL STATUS/SOCIAL/FAMILY SUPPORTS:: Karl lives in [facility] with her , Steve. She is independent at baseline. CURRENT FUNCTIONAL STATUS:: Karl was lying in bed when CM met with her. She was holding her forehead with her eyes closed, and reported that she was having a very bad headache and was not able to engage in conversation. She stated that she could not understand CM while wearing the mask, but CM stated that the mask cannot be removed due to policy. CM found her RN, and reported the headache. Her RN reported that it will be attended to shortly. CM will continue to follow. ADVANCE DIRECTIVES:: On file, Steve Valenzuela (spouse) listed as agent. Laurence Jauregui (sibling) listed as alternate agent. Has patient been provided with info about the portal/API?: Yes Did the patient sign up for the portal?: Yes (active) CODE STATUS:: Full Code INSURANCE COVERAGE / FINANCIAL ISSUES:: [place]/ [facility]/ [facility]/ Financial assist 47% CURRENT HOME/COMMUNITY SERVICES/EQUIPMENT:: No known equipment or services in the community currently. PRIMARY CARE PHYSICIAN:: Mona Whitmore POTENTIAL DISCHARGE NEEDS:: Evaluations for further needs, follow up appointments. PATIENT/FAMILY EDUCATION NEEDS:: Review discharge instructions regarding activity levels and medications, discussion of self care needs including ask me three. ANTICIPATED BARRIERS TO DISCHARGE:: None identified at this time. TRANSPORTATION:: Via private vehicle by family. PLAN:: Anticipate Karl will return home when medically cleared by MD. She will follow up with her PCP and discharge plan of care. Her will drive her home via private vehicle. CM will continue to follow.
--- NOTE | 2021-02-15 16:32 | W.MEDCONSULT ---
Date of service: 02/15/21 Time of Service: 16:32 Assessment and Plan Assessment and plan (1) Chest pain: Start date: 02/15/21 Start time: 16:53 Status: Resolved Assessment and plan: Resolved after passing flatus. EKG with NSR, and no ectopic beats or ST elevation Trops negative. Will be more than happy to consult again if needed. History of Present Illness History of Present Illness Chief Complaint: Chest pain Narrative: Patient states that she had midsternal chest pain that radiated to her left side and back. EKG was normal SR no ectopic beats or ST elevation, troponin was negative. Did state she passed flatus and after passing flatus she felt much better, chest and back pain resolved. HR is normal. Therefore we sill sign off at this time. Thank you for the consult, reconsult if needed. Review of Systems All systems reviewed & are unremarkable except as noted in HPI and below PFSH Medical History Chronic migraine (07/07/14) Essential hypertension Hx of skin cancer, basal cell Surgical History S/P cholecystectomy S/P hysterectomy S/P TKR (total knee replacement) Family History Mother Colon cancer Social History Smoking/Tobacco Use Status: Former Tobacco Use Smoking risk assessment performed?: Yes Alcohol Intake: never Drug use: Never Substance use type: does not use Do you feel safe at home: Yes Do you feel safe in your relationship?: Yes Exam Const General: cooperative, comfortable and no acute distress Nutritional Appearance: thin Orientation: alert, awake and oriented x3 Eyes Eyelids: eyelids normal Pupils: PERRL EOM: EOM intact bilaterally Neck Neck: normal visual inspection and no JVD Lymphatic: no lymphadenopathy noted Resp Effort & Inspection: normal respiratory effort Auscultation: clear to auscultation bilaterally Cardio Jugular venous pressure: no JVD Rhythm: regular rhythm Heart Sounds: S1 normal GI Auscultation: normal bowel sounds Other: pain to bilateral Lower quads General: No CVA tenderness and deferred Back/Spine/Pelvis Back: no CVA tenderness Cervical Spine: normal cervical lordosis Skin General skin exam: no rashes or lesions noted Neuro General: patient alert, patient awake and patient oriented x3 Cognition: normal cognition Speech: speech normal Gait: normal gait Extrem General: normal to inspection, full ROM and no clubbing, cyanosis or edema Results Last Vital Signs Temp 37.1 C 02/15/21 12:30 Pulse 80 02/15/21 12:30 Resp 16 02/15/21 12:30 BP 131/86 02/15/21 12:30 Pulse Ox 98 02/15/21 12:30 Labs Result diagrams: 02/15/21 06:37 02/15/21 06:37 Labs: Laboratory Results - last 24 hr 02/15/21 02/15/21 02/15/21 06:37 06:37 06:37 WBC 5.12 D RBC 3.73 L Hgb 11.5 D Hct 34.3 L MCV 92.0 MCH 30.8 MCHC 33.5 RDW 11.9 Plt Count 186 MPV 10.6 Immature Gran % 0.2 Neutrophils % 58.8 Lymphocytes % 31.4 Monocytes % 8.6 Eosinophils % 0.8 Basophils % 0.2 Nucleated RBC % 0 Absolute Neutrophils 3.01 Absolute Lymphocytes 1.61 Absolute Monocytes 0.44 Absolute Eosinophils 0.04 Absolute Basophils 0.01 PT 10.4 INR 1.0 Sodium 144 Potassium 3.1 L Chloride 106 Carbon Dioxide 26.2 Anion Gap 11.8 H BUN 9 Creatinine 0.9 Estimated GFR/1.73 m2 >= 60.00 Glucose 60 L Calcium 8.5 Total Bilirubin 1.0 AST 31 ALT 32 Alkaline Phosphatase 34 L Troponin I Total Protein 6.0 L Albumin 3.1 L 02/15/21 10:43 WBC RBC Hgb Hct MCV MCH MCHC RDW Plt Count MPV Immature Gran % Neutrophils % Lymphocytes % Monocytes % Eosinophils % Basophils % Nucleated RBC % Absolute Neutrophils Absolute Lymphocytes Absolute Monocytes Absolute Eosinophils Absolute Basophils PT INR Sodium Potassium Chloride Carbon Dioxide Anion Gap BUN Creatinine Estimated GFR/1.73 m2 Glucose Calcium Total Bilirubin AST ALT Alkaline Phosphatase Troponin I < 0.05 Total Protein Albumin
[2021-02-15] MEDS: EPINEPHrine 0.3 MG KIT IM ×2 (17:33→20:10)
[2021-02-15] MEDS: diphenhydrAMINE 50 MG/ML VIAL IVP (17:33)
[2021-02-15] MEDS: FAMOTIDINE 20 MG/50 ML BAG 200 MG IVPB ×2 (17:34→20:10)
[2021-02-15] MEDS: Acetaminophen 325 MG TAB 650 MG PO (18:14)
[2021-02-15] MEDS: Cefpodoxime 200 MG TAB PO (18:14)
[2021-02-15] MEDS: metroNIDAZOLE 500 MG TAB PO (18:43)
[2021-02-15] MEDS: Ondansetron 4 MG/2 ML VIAL IVP (19:57)
[2021-02-15] MEDS: Simvastatin 40 MG TAB PO (19:57)
[2021-02-15] MEDS: diphenhydrAMINE 50 MG/ML VIAL IM/IVP (20:11)
[2021-02-15] MEDS: hydrOXYzine HCL 25 MG TAB PO (20:29)
[2021-02-16] VITALS (9 sets, daily range): BP systolic 100–160; BP diastolic 55–81; PULSE 54–63; RESP 14–18; TEMP 36.4–37.5; O2SAT 95–98
[2021-02-16] MEDS: Normal Saline 1,000 ML 75 ML IV ×2 (00:10→14:19)
[2021-02-16] MEDS: metroNIDAZOLE 500 MG TAB PO ×2 (02:47→10:08)
[2021-02-16] MEDS: Cefpodoxime 200 MG TAB PO (05:23)
--- NOTE | 2021-02-16 07:01 | NUR.NOTE ---
Nursing Note: At 195 Pt reports swollen bilateral parotid glands. Pt states,it feels like I'm experiencing the allergic reaction again. Confirmed swelling glands upon palpation. Assess lungs sounds clear. Pt also report feeling nauseous and vomited 50 ml. Given PRN zofran. Notified charge nurse. Notified charge nurse. Given epinephrine, diphehydramine, and famotidine per MD order. Pt complains severe headache 5 minutes after medications given. Given PRN hydroxyzine PO. At 2029 Pt reports feeling better, no more headaches and nausea. Swollen gland has subsides. Lungs sounds still clear and O2 sat 98% on room air.
[2021-02-16] MEDS: Propranolol 20 MG TAB PO ×2 (07:24→20:10)
[2021-02-16] MEDS: hydroCHLOROthiazide 12.5 MG TAB PO (07:24)
[2021-02-16 07:52] LABS: Abs Immature Grans 0.02 10^3/uL (0.0-0.06); Absolute Basophil Count 0.03 10^3/uL (0.0-0.2); Absolute Eosinophil Count 0.03 10^3/uL (0.0-0.7); Absolute Lymphocyte Count 1.67 10^3/uL (1.2-3.4); Absolute Monocyte Count 0.41 10^3/uL (0.1-0.8); Absolute Neutrophil Count 2.46 10^3/uL (1.2-6.7); Basophils % 0.6; Eosinophils % 0.6; HCT 32.3 % (36.0-46.0); HGB 10.9 g/dL (11.2-15.7); Immature Grans % 0.4; Lymphocytes % 36.1; MCHC 33.7 % (32.0-36.0); MCV 91.8 fL (80-95); MPV 10.4 fL (8.0-11.0); Monocytes % 8.9; Neutrophils % 53.4; Nucleated RBC 0 %; Platelet Count 177 10^3/uL (130-400); RBC 3.52 10^6/uL (3.93-5.22); RDW 12.1 % (11.7-14.6); RDW-SD 40.8 fL; WBC 4.62 10^3/uL (4.4-10.8)
[2021-02-16 08:15] LABS: ALT 43 U/L (14-59); AST 38 U/L (15-37); Albumin 2.9 g/dL (3.4-5.0); Alkaline Phosphatase 35 U/L (46-116); Anion Gap 8.2 mmol/L (3-11); BUN 9 mg/dL (7-18); Bilirubin, Total 0.6 mg/dL (0.2-1.0); CO2 25.8 mmol/L (21.0-32.0); CREATININE 0.8 mg/dL (0.55-1.02); Calcium 8.3 mg/dL (8.5-10.1); Chloride 108 mmol/L (98-107); Glucose 74 mg/dL (74-106); Sodium 142 mmol/L (136-145); Total Protein 5.7 g/dL (6.4-8.2)
--- NOTE | 2021-02-16 09:17 | W.PM.PROGNOT ---
Documented by User: EHSAN Carr 02/16/21 11:48 Date of Service Date of service: 02/16/21 Time of Service: 09:17 Assessment and Plan Assessment and plan (1) Acute diverticulitis: Status: Acute Assessment and plan: Patient expresses improvement in her symptoms. WBC continues to be nml Tolerating clear liquid diet Encouraged activity OOB, ambulation. (2) Essential hypertension: Status: Chronic (3) Chronic migraine: Status: Chronic Subjective Subjective Interval history since last seen: patient reports her abdominal pain feels improved today. She expresses that she is concerned about her neck soreness and swelling which occurred yesterday. She states her neck continues to feel full/swollen today. Denies having any difficulty breathing or swallowing. Exam Const General: cooperative and comfortable Orientation: alert and oriented x3 HENMT Mouth: oral mucosae normal, lip normal, tongue normal and oropharynx normal Throat: posterior oropharynx normal and tonsils normal (englared and tender on plapation. ) GI Inspection: normal to inspection Palpation: soft, no guarding and tender (midly tender ) in the LLQ Objective Last Vital Signs Temp 36.8 C 02/16/21 07:42 Pulse 61 02/16/21 07:42 Resp 17 02/16/21 07:42 BP 127/71 02/16/21 07:42 Pulse Ox 96 02/16/21 07:42 Laboratory Results - last 24 hr 02/15/21 02/16/21 02/16/21 10:43 07:10 07:10 WBC 4.62 RBC 3.52 L Hgb 10.9 L Hct 32.3 L MCV 91.8 MCH 31.0 MCHC 33.7 RDW 12.1 Plt Count 177 MPV 10.4 Immature Gran % 0.4 Neutrophils % 53.4 Lymphocytes % 36.1 Monocytes % 8.9 Eosinophils % 0.6 Basophils % 0.6 Nucleated RBC % 0 Absolute Neutrophils 2.46 Absolute Lymphocytes 1.67 Absolute Monocytes 0.41 Absolute Eosinophils 0.03 Absolute Basophils 0.03 Sodium 142 Potassium 4.0 D Chloride 108 H Carbon Dioxide 25.8 Anion Gap 8.2 BUN 9 Creatinine 0.8 Estimated GFR/1.73 m2 >= 60.00 Glucose 74 Calcium 8.3 L Total Bilirubin 0.6 AST 38 H ALT 43 Alkaline Phosphatase 35 L Troponin I < 0.05 Total Protein 5.7 L Albumin 2.9 L Documented by User: Nicole Vazquez, 02/16/21 20:43 Assessment and Plan Assessment and plan (1) Acute diverticulitis: Status: Acute Assessment and plan: pt c/o epigastric abdominal pain, headasche, diarrhea Pt had bring her excendrin adn peto,and she took them. C.diff is negative. will try cholestyramine for diarrhea adn carafate for stomach. can bring in alow juice which always seems to help her stomach -d/c flagyl. try rifaximine + Vantin. Pt cannot take PCN.(she is currently tolerating a cephalosporin. She is intolerant of floxins/flagyltetracyclines last bought if diverticulitis was in 2016 adn she was treated w/ levaquin and flagyl. The flagyl is giving her abdonal pain and a ELDER. did d/w pharma and will try Rifaxamin soft diet cholestyramine for diarrhea hopfeully d/c in am (2) Essential hypertension: Status: Chronic (3) Chronic migraine: Status: Chronic
[2021-02-16] MEDS: Enoxaparin 40 MG/0.4 ML SYR SC (11:54)
[2021-02-16] MEDS: Pantoprazole 40 MG VIAL IVP (11:55)
--- NOTE | 2021-02-16 17:55 | PDOC.CMPRO ---
- If Service Date Differs Date of service: 02/16/21 Time of Service: 17:55 Care Management Progress Note S/O: Karl was sitting up in bed when CM met with her. She reported feeling much better today, and was very pleasant and engaged in conversation. She stated that she would really like to return home today, if possible, and if not today, tomorrow morning. 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 She reported that she has been through this before, and didn't require hospitalization at that time. CM will advocate for her being discharged, if she is medically stable enough to do so. Per report, her diet was advanced to a regular diet for dinner this evening. CM will continue to follow. A: Karl is a 70 year old female admitted to [facility] on 02/14/21 with uncomplicated diverticulitis. P: Anticipate Karl will return home when medically cleared by . She will follow up with her PCP and discharge plan of care. Her will drive her home via private vehicle. CM will continue to follow.
[2021-02-16 18:06] LABS: C Diff PCR Negative (Negative)
[2021-02-16] MEDS: Normal Saline Flush 10 ML SYR IVP (20:09)
[2021-02-16] MEDS: Rifaximin 550 MG TAB PO (20:09)
[2021-02-16] MEDS: Simvastatin 40 MG TAB PO (20:09)
[2021-02-16] MEDS: Dicyclomine 20 MG TAB PO (20:10)
[2021-02-17 03:35] VITALS: BP 148/79; PULSE 49; RESP 16; TEMP 37.5; O2SAT 95
[2021-02-17] MEDS: Normal Saline 1,000 ML 75 ML IV (03:42)
[2021-02-17] MEDS: Cefpodoxime 200 MG TAB PO (06:22)
[2021-02-17] MEDS: Rifaximin 550 MG TAB PO (08:24)
[2021-02-17] MEDS: Propranolol 20 MG TAB PO (08:25)
[2021-02-17] MEDS: hydroCHLOROthiazide 12.5 MG TAB PO (08:25)
[2021-02-17] MEDS: Dicyclomine 20 MG TAB PO ×2 (08:25→12:28)
--- NOTE | 2021-02-17 09:04 | W.PM.PROGNOT ---
Date of Service Date of service: 02/17/21 Time of Service: 09:04 Assessment and Plan Assessment and plan (1) Acute diverticulitis: Status: Acute Assessment and plan: patient is feeling very well this morning. Denies any abdominal pain (+) Diarrhea continues. C. Diff (-) Tolerating the change in atbx which is now Rifaximin Tolerating a regular diet. Encouraged continued activity OOB and sitting in the chair Discussed that she should follow up with PCP regarding Colonoscopy. She reports (+) Family Hx of Colon cancer and she is not able to recall when her last screening [place]. was. D/C home later today. (2) Essential hypertension: Status: Chronic (3) Chronic migraine: Status: Chronic Subjective Subjective Interval history since last seen: patient reports feeling significantly better today, expressing eagerness to be d/c home today. She reports that her pain has resolved. She is tolerating a regular diet. Denies any nausea or vomiting. (+) Multiple loose BMs between yesterday and this morning. Exam Const General: cooperative, healthy appearing and comfortable Orientation: alert and oriented x3 Resp Effort & Inspection: normal respiratory effort, no audible wheezes and no cough GI Inspection: normal to inspection and non-distended Palpation: soft, no guarding and nontender Objective Last Vital Signs Temp 37.5 C 02/17/21 03:35 Pulse 49 L 02/17/21 03:35 Resp 16 02/17/21 03:35 BP 148/79 H 02/17/21 03:35 Pulse Ox 95 02/17/21 03:35 Laboratory Results - last 24 hr 02/16/21 16:22 Stl C.difficile Tox PCR Negative
--- NOTE | 2021-02-17 09:10 | W.PM.DS.N ---
Documented by User: EHSAN Carr 02/17/21 09:18 Date of service: 02/17/21 Time of Service: 09:10 DS: Diagnosis Discharge Diagnosis (1) Acute diverticulitis: Status: Acute (2) Essential hypertension: Status: Chronic (3) Chronic migraine: Status: Chronic Discharge Plan Disposition Patient Disposition: HOME Condition: Good Discharge Details Reason For Visit: Uncomplicated Diverticulitis Admit Date/Time: 02/14/21 08:36 Admit Provider: Yoana Arndt Attending Provider: Yoana Arndt Primary Care Provider: Mona Whitmore [facility] Course Hospital Course: 70 y/o female with a history of HTN and diverticulitis was admitted for acue uncomplicated diverticulitis. She was treated with IV Zosyn, which was then changed to Rifiximin secondary to an allergic reaction. Her abdominal discomfort has improved. She is tolerated a regular diet. She has been having diarrhea for the past 24 hours, which has improved this morning. No fevers, chills or night sweats. Home Meds and New Rx's Prescriptions: New cefpodoxime 200 mg Tablet 200 mg PO Q12H Qty: 10 RF: 0 dicyclomine 20 mg Tablet 20 mg PO QID Qty: 30 RF: 0 Xifaxan 550 mg Tablet 550 mg PO BID Qty: 10 RF: 0 Continued ascorbic acid (vitamin C) 1,000 MG tablet 1,000 mg PO DAILY RF: 0 Lactobacillus acidophilus 1 MG tablet 1 cap PO DAILY RF: 0 acetaminophen [Tylenol] 325 MG tablet 1 tab PO PRN PRNRF: 0 simvastatin 40 mg tablet 40 mg PO DAILY RF: 0 epinephrine 0.3 mg/0.3 mL auto-injector 0.3 mg subcut DIRECTED PRNRF: 0 propranolol 20 mg tablet 20 mg PO BID RF: 0 hydrochlorothiazide 12.5 mg tablet 12.5 mg PO DAILY RF: 0 Discharge Instructions Instructions: Diverticulitis (DC), Diverticulitis Diet (DC) Additional Instructions: Patient will need to follow up with her PCP in 2 weeks. She should also review when her last Colonoscopy for she may be due for Screening Colonoscopy given her (+) Family History. Referrals: Eryn Montano [NURSE PRACTITIONER] - 03/02/21 4:30 am Activity:: Activity as Tolerated Equipment/Supplies:: No Equipment Needed Diet:: low fiber DS: Data Vitals/I&O Vitals and I&O: Vital Signs Temperature 37.5 C 02/17/21 03:35 Temperature Source Skin 02/17/21 03:35 Pulse 49 L 02/17/21 03:35 Pulse Rhythm Regular 02/17/21 04:08 Pulse 57 L 02/14/21 09:31 Respiratory Rate 16 02/17/21 03:35 Respiratory Effort Non-Labored 02/17/21 04:08 Respiratory Depth Normal 02/17/21 04:08 Respiratory Pattern Normal 02/17/21 04:08 Blood Pressure 148/79 H 02/17/21 03:35 Blood Pressure Mean 89 02/14/21 09:30 Blood Pressure Position Sitting 02/14/21 05:30 Pulse Oximetry 95 02/17/21 03:35 Oxygen Delivery Method Room Air 02/17/21 03:35 Oxygen Flow Rate 0 02/17/21 03:35 Pain Level 2 02/17/21 08:25 Comment 02/17/21 03:35 Intake & Output 02/16/21 02/17/21 02/17/21 18:59 06:59 18:59 Intake Total 1850 / 3630 1780 / 3630 120 / 120 Output Total 1000 / 1000 Balance 850 / 2630 1780 / 2630 120 / 120 Intake: IV 1000 / 2000 1000 / 2000 Oral 850 / 1630 780 / 1630 120 / 120 Output: Urine 900 / 900 Stool 100 / 100 Other: Urine Color Yellow Yellow Urine Appearance Clear Clear Urine Odor None None Stool Size Small Stool Characteristics Liquid Voiding Methods Toilet Toilet Data Completed and Pending Labs on day of discharge: Labs from last 24 hours 02/16/21 16:22 Stl C.difficile Tox PCR Negative PFSH Medical History Chronic migraine (07/07/14) Essential hypertension Hx of skin cancer, basal cell Surgical History S/P cholecystectomy S/P hysterectomy S/P TKR (total knee replacement) Family History Mother Colon cancer Social History Smoking/Tobacco Use Status: Former Tobacco Use Smoking risk assessment performed?: Yes Alcohol Intake: never Drug use: Never Substance use type: does not use Do you feel safe at home: Yes Do you feel safe in your relationship?: Yes Documented by User: Dejah Nielsen MD 02/17/21 11:27 Discharge Plan Disposition Patient Disposition: HOME Condition: Good Discharge Details Reason For Visit: Uncomplicated Diverticulitis Admit Date/Time: 02/14/21 08:36 Admit Provider: Yoana Arndt Attending Provider: Yoana Arndt Primary Care Provider: [facility] Hospital Course Hospital Course: 70 y/o female with a history of HTN and diverticulitis was admitted for acue uncomplicated diverticulitis. She was treated with IV Zosyn, which was then changed to Rifiximin secondary to an allergic reaction. Her abdominal discomfort has improved. She is tolerated a regular diet. She has been having diarrhea for the past 24 hours, which has improved this morning. No fevers, chills or night sweats. Home Meds and New Rx's Prescriptions: New cefpodoxime 200 mg Tablet 200 mg PO Q12H Qty: 10 RF: 0 dicyclomine 20 mg Tablet 20 mg PO QID Qty: 30 RF: 0 Xifaxan 550 mg Tablet 550 mg PO BID Qty: 10 RF: 0 Continued ascorbic acid (vitamin C) 1,000 MG tablet 1,000 mg PO DAILY RF: 0 Lactobacillus acidophilus 1 MG tablet 1 cap PO DAILY RF: 0 acetaminophen [Tylenol] 325 MG tablet 1 tab PO PRN PRNRF: 0 simvastatin 40 mg tablet 40 mg PO DAILY RF: 0 epinephrine 0.3 mg/0.3 mL auto-injector 0.3 mg subcut DIRECTED PRNRF: 0 propranolol 20 mg tablet 20 mg PO BID RF: 0 hydrochlorothiazide 12.5 mg tablet 12.5 mg PO DAILY RF: 0 Discharge Instructions Instructions: Diverticulitis (DC), Diverticulitis Diet (DC) Additional Instructions: Patient will need to follow up with her PCP in 2 weeks. She should also review when her last Colonoscopy for she may be due for Screening Colonoscopy given her (+) Family History. Referrals: Eryn Montano [NURSE PRACTITIONER] - 03/02/21 4:30 am Activity:: Activity as Tolerated Equipment/Supplies:: No Equipment Needed Diet:: low fiber DS: Summary Time Spent with Patient providing and/or coordinating discharge services: Greater than 30 minutes Status at Discharge Functional status at discharge: independent ambulation Overall status at discharge: patient is back to baseline Mental Status: mental status grossly normal Speech and Movement: speech and movement normal Mood: congruent mood Affect: normal affect Exam Resp Effort & Inspection: normal respiratory effort Auscultation: clear to auscultation bilaterally Cardio Rate: regular rate Rhythm: regular rhythm GI Palpation: soft, no hepatosplenomegaly and nontender Auscultation: normal bowel sounds Psych Mental Status: mental status grossly normal Speech and Movement: speech and movement normal Mood: congruent mood Affect: normal affect [facility] Medical History Chronic migraine (07/07/14) Essential hypertension Hx of skin cancer, basal cell Surgical History S/P cholecystectomy S/P hysterectomy S/P TKR (total knee replacement) Family History Mother Colon cancer Social History Smoking/Tobacco Use Status: Former Tobacco Use Smoking risk assessment performed?: Yes Alcohol Intake: never Drug use: Never Substance use type: does not use Do you feel safe at home: Yes Do you feel safe in your relationship?: Yes
[2021-02-17 09:17] VITALS: BP 157/80; PULSE 66; RESP 16; TEMP 36.5; O2SAT 98
[2021-02-17] MEDS: Cholestyramine/Aspartame PKT 1 EACH PO (10:26)
[2021-02-17] MEDS: Pantoprazole 40 MG VIAL IVP (12:28)
[2021-02-17] MEDS: Enoxaparin 40 MG/0.4 ML SYR SC (12:29)
[2021-02-17] MEDS: Normal Saline Flush 10 ML SYR IVP (12:29)
--- NOTE | 2021-02-17 14:28 | CHAPLAIN ---
Karl was resting in bed when I visited. 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 Her has been in to visit, and Karl hopes to be discharged later today.
--- NOTE | 2021-02-17 17:07 | PDOC.CMDIS ---
- If Service Date Differs Date of service: 02/17/21 Time of Service: 17:07 LACE Index Scoring Tool - Questions: Length of Stay (in days): 3 Acuity (Admit via E.D.?): Yes E.D. Visits: 1 - Answers: Total Score: 7 Risk of Readmission: Low Risk Care Management Discharge Reason for Hospitalization: Uncomplicated Diverticulitis Discharge Plan: Karl will return home today with no new services. Her will drive her home via private vehicle. She will follow up with her PCP and discharge plan of care. She is happy to be going home. Patient/Family Education Needs: Review discharge instructions regarding activity levels and medications, discussion of self care needs including ask me three.
== END 2021-02-17 14:52 | disposition home or self-care (01) | DRG 392 ==
LOC: ER 08:44 → MS 10:04
PROVIDERS: Emergency Medicine; Nurse Practitioner Family; Surgery; Admitting Provider Surgery; Emergency Provider Physician Assistant; PCP Nurse Practitioner Family; Visit Provider Surgery
DX: K57.32 Diverticulitis of large intestine without perforation or abscess without bleeding (principal); I10 Essential (primary) hypertension; G43.709 Chronic migraine without aura, not intractable, without status migrainosus; Z80.0 Family history of malignant neoplasm of digestive organs; Z86.19 Personal history of other infectious and parasitic diseases; R59.0 Localized enlarged lymph nodes; Z20.822 Contact with and (suspected) exposure to COVID-19; R07.9 Chest pain, unspecified; R19.7 Diarrhea, unspecified
CPT/HCPCS: 36415; 80053; 83690; 87493; 87635; 96361; 96365; 96368; 99222; 99232; 99238; 99285; J1650; 74177; 81003; 81015; 84484; 85025; 85610; 87086; 93005; 93010; 99221; J0131; J0171; J1200; J2405; J2543; J3490

== ENCOUNTER 2021-03-02 14:48 | Outpatient (REF) | payer MEDICARE, SELFPAY ==
[2021-03-02 21:55] LABS: Abs Immature Grans 0.02 10^3/uL (0.0-0.06); Absolute Basophil Count 0.04 10^3/uL (0.0-0.2); Absolute Eosinophil Count 0.06 10^3/uL (0.0-0.7); Absolute Lymphocyte Count 2.33 10^3/uL (1.2-3.4); Absolute Monocyte Count 0.56 10^3/uL (0.1-0.8); Absolute Neutrophil Count 2.35 10^3/uL (1.2-6.7); Basophils % 0.7; Eosinophils % 1.1; HCT 40.9 % (36.0-46.0); HGB 14.5 g/dL (11.2-15.7); Immature Grans % 0.4; Lymphocytes % 43.5; MCH 30.9 pg (27.0-33.0); MCHC 35.5 % (32.0-36.0); MCV 87.2 fL (80-95); MPV 10.4 fL (8.0-11.0); Monocytes % 10.4; Neutrophils % 43.9; Nucleated RBC 0 %; RBC 4.69 10^6/uL (3.93-5.22); RDW 11.8 % (11.7-14.6); RDW-SD 37.2 fL; WBC 5.36 10^3/uL (4.4-10.8)
[2021-03-02 21:56] LABS: Platelet Count 357 10^3/uL (130-400)
[2021-03-02 22:05] LABS: ALT 32 U/L (14-59); AST 17 U/L (15-37); Albumin 4.2 g/dL (3.4-5.0); Alkaline Phosphatase 50 U/L (46-116); Anion Gap 5.9 mmol/L (3-11); BUN 13 mg/dL (7-18); Bilirubin, Total 0.5 mg/dL (0.2-1.0); CO2 31.1 mmol/L (21.0-32.0); CREATININE 0.9 mg/dL (0.55-1.02); Calcium 9.5 mg/dL (8.5-10.1); Chloride 97 mmol/L (98-107); Glucose 119 mg/dL (74-106); Potassium 3.8 mmol/L (3.5-5.1); Sodium 134 mmol/L (136-145); Total Protein 7.3 g/dL (6.4-8.2)
== END 2021-03-02 14:49 | disposition home or self-care (01) ==
LOC: LBN 14:48
PROVIDERS: PCP Nurse Practitioner Family; Visit Provider Family Medicine
DX: K57.80 Diverticulitis of intestine, part unspecified, with perforation and abscess without bleeding (principal)
CPT/HCPCS: 80053; 85025

== ENCOUNTER 2021-03-11 14:28 | Outpatient (CLI) | payer MEDICARE, SELFPAY ==
--- NOTE | 2021-03-11 10:00 | DI.CT_ITS ---
Exam(s) CT ABDOMEN PELVIS W EXAM: CT ABDOMEN PELVIS W INDICATION: DIVERTICULITIS WITH ABSCESS,K57.80. COMPARISON: CT CT ABDOMEN PELVIS W from 02/14/2021 TECHNIQUE: FINDINGS: CT examination of the abdomen and pelvis was performed with a bolus infusion of 100 cc of Omnipaque 3 50. Images obtained through the lung bases are unremarkable. The liver again shows multiple presumed hemangiomas, no change from prior CT of February 14. Prior cholecystectomy noted. Bile ducts are CT normal. Pancreas appears normal. Spleen is unremarkable in appearance. Adrenals appear normal. The kidneys are unremarkable with no evidence of hydronephrosis, nephrolithiasis, or renal mass.. Ur inary bladder unremarkable. Abdominal aorta is of normal diameter and no major vascular abnormality is seen. No abdominal wall hernia. No abdominal or pelvic adenopathy. [employer] structures unremarkable for age.. No evidence of appendicitis. The previously described diverticulitis of the sigmoid colon seen on ex amination of February 14 has resolved. No intra-abdominal abscess, free air, or free fluid. IMPRESSION: Interval resolution of previously noted sigmoid diverticulitis which had a presumed intramural absces s. No abscess identified on today's examination. No other significant findings. RADIATION DOSE DELIVERED: 559.92mGy.cm Total DLP 559.92mGy.cm Total DLP 12.45mGy CTDIvol RADIATION OPTIMIZATION: All CT scans at this facility use at least one of these dose optimization te chniques: automated exposure control; mA and/or kV adjustment per patient size (includes targeted exa ms where dose is matched to clinical indication); or iterative reconstruction.
[2021-03-11] MEDS: Breeza Beverage 473 ML BTL PO ×2 (10:15→10:17)
[2021-03-11] MEDS: Omnipaque 350 MG/ML 50 ML BTL PO (10:17)
[2021-03-11] MEDS: Omnipaque 350 MG/ML 100 ML BTL IJ (11:41)
== END 2021-03-11 14:48 ==
PROVIDERS: PCP Nurse Practitioner Family; Visit Provider Family Medicine
DX: K57.32 Diverticulitis of large intestine without perforation or abscess without bleeding (principal); K76.89 Other specified diseases of liver
CPT/HCPCS: 74177; J3490; Q9967

== ENCOUNTER 2021-07-02 15:46 | Outpatient (REF) | payer MEDICARE, SELFPAY ==
[2021-07-02 15:55] LABS: Anion Gap 9.9 mmol/L (3-11); BUN 12 mg/dL (7-18); CO2 29.1 mmol/L (21.0-32.0); CREATININE 0.8 mg/dL (0.55-1.02); Calcium 9.3 mg/dL (8.5-10.1); Calculated LDL 60 mg/dL (<100); Chloride 100 mmol/L (98-107); Cholesterol 139 mg/dL (<200); Glucose 88 mg/dL (74-106); HDL Cholesterol 63 mg/dL (40-60); Sodium 139 mmol/L (136-145); Triglyceride 84 mg/dL (<150)
== END 2021-07-02 15:47 | disposition home or self-care (01) ==
LOC: NCHCN 15:46
PROVIDERS: PCP Nurse Practitioner Family; Visit Provider Nurse Practitioner Family
DX: I10 Essential (primary) hypertension (principal); E78.5 Hyperlipidemia, unspecified
CPT/HCPCS: 80048; 80061

== ENCOUNTER 2021-12-02 19:53 | Outpatient (REF) | payer MEDICARE, SELFPAY ==
[2021-12-02 17:27] LABS: RBC >50 HPF (0-2); WBC >50 HPF (0-5)
[2021-12-02 17:28] LABS: Bacteria Moderate HPF (Negative); C & S Indicated? C&S Done As Ordered; Crystals Negative HPF (Negative); Mucus Negative (Negative)
== END 2021-12-02 19:54 | disposition home or self-care (01) ==
LOC: LBN 19:53
PROVIDERS: PCP Nurse Practitioner Family; Visit Provider Physician Assistant Medical
DX: R30.0 Dysuria (principal); N89.8 Other specified noninflammatory disorders of vagina
CPT/HCPCS: 87077; 81015; 87070; 87086; 87186; 87480; 87510; 87660

== ENCOUNTER 2021-12-30 11:12 | Outpatient (REF) | payer MEDICARE, SELFPAY ==
[2021-12-30 15:24] LABS: Bacteria Moderate HPF (Negative); C & S Indicated? C&S Done As Ordered; Casts Negative LPF (Negative); Crystals Negative HPF (Negative); Epithelial Cells Few HPF (Negative); Mucus Trace (Negative); WBC >50 HPF (0-5)
== END 2021-12-30 11:13 | disposition home or self-care (01) ==
LOC: NCHCN 11:12
PROVIDERS: PCP Nurse Practitioner Family; Visit Provider Physician Assistant Medical
DX: R30.0 Dysuria (principal)
CPT/HCPCS: 87077; 81015; 87086; 87186

== ENCOUNTER 2022-04-26 21:10 | Outpatient (REF) | payer MEDICARE, SELFPAY | END 2022-04-26 21:11 | disposition home or self-care (01) | LOC: NCHCN 21:10 | PROVIDERS: PCP Nurse Practitioner Family; Visit Provider Nurse Practitioner Family | DX: R30.0 Dysuria (principal) | CPT/HCPCS: 87077; 87086; 87186 ==

== ENCOUNTER 2022-09-06 20:21 | Outpatient (REF) | payer MEDICARE, SELFPAY ==
[2022-09-06 20:57] LABS: Abs Immature Grans 0.03 10^3/uL (0.0-0.06); Absolute Basophil Count 0.05 10^3/uL (0.0-0.2); Absolute Eosinophil Count 0.74 10^3/uL (0.0-0.7); Absolute Lymphocyte Count 3.08 10^3/uL (1.2-3.4); Absolute Monocyte Count 0.59 10^3/uL (0.1-0.8); Absolute Neutrophil Count 3.38 10^3/uL (1.2-6.7); Basophils % 0.6; Eosinophils % 9.4; HGB 13.7 g/dL (11.2-15.7); Immature Grans % 0.4; Lymphocytes % 39.1; MCH 30.4 pg (27.0-33.0); MCHC 34.3 % (32.0-36.0); MCV 89 fL (80-95); MPV 11.1 fL (8.0-11.0); Monocytes % 7.5; Platelet Count 258 10^3/uL (130-400); RDW 11.9 % (11.7-14.6); RDW-SD 38.6 fL; WBC 7.87 10^3/uL (4.4-10.8)
[2022-09-06 21:02] LABS: ESR 2 mm/hr (0-30)
[2022-09-06 21:36] LABS: ALT 21 U/L (14-59); AST 15 U/L (15-37); Albumin 4.1 g/dL (3.4-5.0); Alkaline Phosphatase 46 U/L (46-116); Anion Gap 8.4 mmol/L (3-11); BUN 12 mg/dL (7-18); Bilirubin, Total 0.4 mg/dL (0.2-1.0); CO2 28.6 mmol/L (21.0-32.0); CREATININE 0.9 mg/dL (0.55-1.02); Calcium 9.3 mg/dL (8.5-10.1); Chloride 99 mmol/L (98-107); Estimated GFR 68.35 (mL/min/1.73m2); Glucose 94 mg/dL (74-106); Potassium 3.5 mmol/L (3.5-5.1); Sodium 136 mmol/L (136-145); Total Protein 6.9 g/dL (6.4-8.2)
[2022-09-06 21:41] LABS: C-Reactive Protein < 0.05 mg/dL (0.0-0.3)
== END 2022-09-06 20:22 | disposition home or self-care (01) ==
LOC: LBN 20:21
PROVIDERS: PCP Nurse Practitioner Family; Visit Provider Nurse Practitioner Family
DX: R10.32 Left lower quadrant pain (principal)
CPT/HCPCS: 80053; 85652; 85025; 86140

== ENCOUNTER 2022-09-08 00:55 | Outpatient (CLI) | payer MEDICARE, SELFPAY ==
--- NOTE | 2022-09-08 13:00 | DI.CT_ITS ---
Exam(s) CT ABDOMEN PELVIS W EXAM: CT ABDOMEN PELVIS W CLINICAL HISTORY: LT LOWER QUAD ABD PAIN, R10.32, HX DIVERTICULITIS WITH ABSCESS. TECHNIQUE: Imaging Protocol: Axial computed tomography images with coronal and sagittal reformatted images were created and reviewed CONTRAST MATERIAL: Intravenous: Omnipaque 350 Contrast volume:100 ml Oral: yes / no COMPARISON: CT CT ABDOMEN PELVIS W from 03/11/2021 FINDINGS: ABDOMEN: Lung Bases: Normal where visualized. Liver: Normal density. Stable lesions consistent with hemangioma. Gallbladder and biliary tract: Status post cholecystectomy. No radiodense calculus or dilation. Pancreas: Normal density, no abnormal calcifications or inflammatory process. Spleen: Normal. Kidneys: Normal size, contour and axis. No radiodense stones or obstructive uropathy. No suspicious m asses seen. Adrenal glands: No masses seen. Abdominal Aorta: Abdominal portion non-dilated. Soft tissues: Unremarkable. PELVIS: Bladder: Nearly empty. No gross wall thickening. No calculi.No focal mass. Bowel: Sigmoid diverticulosis. No evidence of acute diverticulitis or abscess. No obstruction. No bowel wall thickening. Peritoneal cavity: No ascites, collection or mesenteric inflammatory response. Bones: Mild degenerative changes. Reproductive organs: Pessary. Status post hysterectomy. Lymph nodes: Unremarkable. Impression: Sigmoid diverticulosis. No evidence of diverticulitis or abscess. RADIATION DOSE DELIVERED: 538.05mGy.cm Total DLP DATA REPOSITORY: All CT scans at this facility are submitted to the National Radiology Data Registry (NRDR) Dose Index Registry (DIR) with the [employer] (ACR). RADIATION OPTIMIZATION: All CT scans at this facility use at least one of these dose optimization te chniques: automated exposure control; mA and/or kV adjustment per patient size (includes targeted exa ms where dose is matched to clinical indication); or iterative reconstruction.
[2022-09-08] MEDS: Barium Sulfate 2% W/V-Creamy Vanilla Smoothie 450 ML BTL 900 ML PO (15:07)
[2022-09-08] MEDS: Omnipaque 350 MG/ML 100 ML BTL IJ (15:08)
[2022-09-08] MEDS: Normal Saline - Diluent 50 ML VIAL IJ (15:09)
== END 2022-09-08 01:15 ==
PROVIDERS: PCP Nurse Practitioner Family; Visit Provider Nurse Practitioner Family
DX: R10.32 Left lower quadrant pain (principal); Z90.49 Acquired absence of other specified parts of digestive tract; Z90.710 Acquired absence of both cervix and uterus; K57.30 Diverticulosis of large intestine without perforation or abscess without bleeding
CPT/HCPCS: 74177; 81015; 87086; J3490

== ENCOUNTER 2022-09-08 16:57 | Outpatient (REF) | payer MEDICARE, SELFPAY ==
[2022-09-08 16:08] LABS: Bacteria Few HPF (Negative); C & S Indicated? C&S Done As Ordered; Casts Negative LPF (Negative); Crystals Negative HPF (Negative); Epithelial Cells Few HPF (Negative); Mucus Negative (Negative); RBC 0-2 HPF (0-2)
== END 2022-09-08 16:58 | disposition home or self-care (01) ==
LOC: LBN 16:57
PROVIDERS: PCP Nurse Practitioner Family; Visit Provider Physician Assistant Medical
DX: R10.32 Left lower quadrant pain (principal); R82.998 Other abnormal findings in urine
CPT/HCPCS: 81015; 87086

== ENCOUNTER 2022-10-19 14:34 | Outpatient (REF) | payer MEDICARE, SELFPAY ==
[2022-10-19 20:08] LABS: ALT 22 U/L (14-59); AST 24 U/L (15-37); Albumin 4.3 g/dL (3.4-5.0); Alkaline Phosphatase 42 U/L (46-116); Anion Gap 7.4 mmol/L (3-11); BUN 10 mg/dL (7-18); Bilirubin, Total 0.8 mg/dL (0.2-1.0); CO2 30.6 mmol/L (21.0-32.0); CREATININE 0.8 mg/dL (0.55-1.02); Calcium 9.5 mg/dL (8.5-10.1); Calculated LDL 93 mg/dL (<100); Chloride 99 mmol/L (98-107); Cholesterol 179 mg/dL (<200); Estimated GFR 78.72 (mL/min/1.73m2); Glucose 95 mg/dL (74-106); HDL Cholesterol 72 mg/dL (40-60); Potassium 3.5 mmol/L (3.5-5.1); Sodium 137 mmol/L (136-145); Total Protein 7.6 g/dL (6.4-8.2); Triglyceride 72 mg/dL (<150)
== END 2022-10-19 14:35 | disposition home or self-care (01) ==
LOC: NCHCN 14:34
PROVIDERS: PCP Nurse Practitioner Family; Visit Provider Nurse Practitioner Family
DX: E78.5 Hyperlipidemia, unspecified (principal)
CPT/HCPCS: 80053; 80061

== ENCOUNTER 2023-01-31 08:58 | Outpatient (REF) | payer MEDICARE, SELFPAY | END 2023-01-31 08:59 | disposition home or self-care (01) | LOC: LBN 08:58 | PROVIDERS: PCP Nurse Practitioner Family; Visit Provider Nurse Practitioner Family | DX: N30.01 Acute cystitis with hematuria (principal) | CPT/HCPCS: 87077; 87086; 87186 ==

== ENCOUNTER 2023-05-25 12:08 | Emergency (ER) | payer MEDICARE, SELFPAY ==
[2023-05-25] VITALS (80 sets, daily range): BP systolic 52–200; BP diastolic 26–106; PULSE 43–109; RESP 8–23; TEMP 36.8; O2SAT 95–100
--- NOTE | 2023-05-25 12:00 | RT.EKG_ITS ---
APPROVED REPORT Exam: Resting ECG Reason for Exam: chest pain Patient Location: E HR:74 bpm ECG Measurements Heart Rate 74 AXIS AK 177 P 51 QRSd 96 QRS 0 QT 391 T 56 QTc 435 Conclusion Sinus rhythm...normal P axis, V-rate 60- [address] segment or T wave abnormlaiteis to suggest occlusive [place].
--- NOTE | 2023-05-25 12:15 | DI.CT_ITS ---
Exam(s) CT THORAX ABDOMEN CTA EXAM: CT THORAX ABDOMEN CTA CLINICAL HISTORY: Retroperitoneal chest pain, R/O Aneurysm. TECHNIQUE: Imaging Protocol: Axial CT angiography was performed with multi-slice acquisition and mu lti-planar and/or 3D reconstructions. CONTRAST MATERIAL: Intravenous: Omnipaque 350 Contrast volume:100 ml COMPARISON: CT CT ABDOMEN PELVIS W from 09/08/2022 FINDINGS: CHEST: Pulmonary Arteries: No evidence of filling defects to suggest pulmonary emboli. Tracheobronchial tree: No bronchiectasis or mucus plugging. Mediastinum and Kemi: No dominant adenopathy or fluid collection. Pulmonary parenchyma: No consolidation or dominant measurable mass. Pleura: No effusion. No pneumothorax. Heart: The heart is notdilated. No coronary artery calcifications are seen. Aorta: Dilatation of the ascending aorta to 3.3 cm. Minimal atherosclerotic changes. No evidence of dissection. Bones: Unremarkable for age. Tubes, Catheters, and Lines: None. ABDOMEN and PELVIS: Liver: Normal size. Normal density. Stable low-density lesion felt to represent hemangioma on prior exams. Portal, Superior Mesenteric, and Splenic Veins: Unremarkable. Gallbladder and Biliary Tract: Status post cholecystectomy. No radiodense calculus. No biliary dilata tion. Pancreas: Normal density, no abnormal calcifications or inflammatory process. Spleen: Normal. Adrenals: No masses seen. Kidneys: Normal size, contour and axis. No radiodense stones. No obstructive uropathy. No masses seen . Vasculature: Abdominal aorta non-dilated. Mild atherosclerotic changes. Branch vessels patent. Bowel: No obstruction or bowel wall thickening. Peritoneal Cavity: No ascites, collection or mesenteric inflammatory response. Lymph Nodes: Within normal limits. Soft Tissues: Unremarkable. Lymph Nodes: Within normal limits. Bones: Unremarkable for age.. IMPRESSION: 1. No evidence of pulmonary embolism. No evidence of aortic dissection. Mild dilatation of the ascend ing aorta to 3.3 cm. 2. No acute abdominal process. RADIATION DOSE DELIVERED: Total DLP DATA REPOSITORY: All CT scans at this facility are submitted to the National Radiology Data Registry (NRDR) Dose Index Registry (DIR) with the [employer] (ACR). RADIATION OPTIMIZATION: All CT scans at this facility use at least one of these dose optimization te chniques: automated exposure control; mA and/or kV adjustment per patient size (includes targeted exa ms where dose is matched to clinical indication); or iterative reconstruction.
--- NOTE | 2023-05-25 12:26 | ED.GENADUL_ITS ---
Discharge Plan Disposition Patient Disposition: Home Condition: Stable Discharge Details Clinical Impression: Chest pain, pleuritic, Atypical chest pain Primary Care Provider: Dolly Albert ED Provider: Clary Go Home Meds and New Rx's Prescriptions: Continued simvastatin 20 mg tablet 20 mg PO DAILY propranolol 20 mg tablet 20 mg PO BID naproxen 375 mg tablet 375 mg PO BID PRN hydroxyzine HCl 25 mg tablet 25 mg PO Q4H PRN multivitamin [Daily Multi-Vitamin] Tablet 1 tab PO DAILY cholecalciferol (vitamin D3) 25 mcg (1,000 unit) capsule 25 mcg PO DAILY ascorbic acid (vitamin C) 1,000 MG tablet 1,000 mg PO DAILY Lactobacillus acidophilus 1 MG tablet 1 cap PO DAILY acetaminophen [Tylenol] 325 MG tablet 1 tab PO PRN PRN epinephrine 0.3 mg/0.3 mL auto-injector 0.3 mg subcut DIRECTED PRN hydrochlorothiazide 12.5 mg tablet 12.5 mg PO DAILY lutein 6 mg capsule 6 mg PO DAILY Rx Instructions: give with meal/snack vitamin E 268 mg (400 unit) capsule 268 mg PO DAILY vitamin A 2,400 mcg capsule 2,400 mcg PO DAILY Discharge Instructions Instructions: Chest Pain (ED) Additional Instructions: Your workup in the emergency department showed no evidence of damage to your heart. You should follow-up with your primary care provider for further outpatient cardiology evaluation Call in the morning for a follow-up appointment You have been scheduled for outpatient echocardiogram and stress test please call diagnostic imaging tomorrow to have exams scheduled. Return to the emergency department sooner for new or worsening symptoms Referrals: Dolly Albert [Primary Care Provider] - Discharge Orders Other Ambulatory Orders: US echocardiogram (Routine) Timeframe: 1 Week Location: None Selected Ordered By: Clary Go PA MPI rest & stress day 2 (Routine) Location: None Selected Ordered By: Clary Go Medical Decision Making <Sangeetha Damon NP - Last Filed: 05/25/23 15:31> 73-year-old female presents to the ER with chief complaint of chest pain, she reports that last night she began with some epigastric abdominal pain which radiates into her back between her shoulder blades, she is slightly nauseous reports increased pain with deep breathing which worsened this morning. She does have a past medical history of high cholesterol, hypertension, family history of colon cancer, anxiety and basal cell carcinoma. Surgical history includes cholecystectomy, hysterectomy, total knee replacement tubal ligation. She denies any recent long trips in a car or plane no lower extremity edema noted lungs are clear to auscultation bilaterally. She is slightly hypertensive upon arrival with a blood pressure of 166/84. Does have a strong family history of SD she reports her sister had a heart attack she is 2 years younger than her. She is a former smoker she quit smoking in 1975, initial heart score without troponin is approximately 7. Cardiac workup ordered including serial troponins, PT PTT, proBNP, initially chest x-ray ordered which was canceled changed to CTA chest abdomen pelvis. D- dimer and lipase also added on. Differential diagnosis includes but not limited to SD, NSTEMI, aortic aneurysm, PE, pneumonia, pleurisy. Initial aspirin 324 mg order was held pending CT to rule out aortic aneurysm. Initial troponin within normal limits, CT shows no evidence to suggest pulmonary emboli, slightly dilated ascending aorta 3.3 cm, with atherosclerotic changes. No evidence of dissection. Upon patient reevaluation she reports she is still having the pain with deep breathing. 2.5 mg of metoprolol IV ordered, 324 mg Aspirin, patient also reports that she is having hard time with beeping noises, her blood pressure is slightly elevated 152/106, this may be related to anxiety. I did mention morphine which patient declined at this time. ProBNP is slightly elevated at 420 D-dimer is 860. Glucose 140 potassium slightly low at 3.3, Informed by entry level staff accountant that patient is refusing to keep her BP cuff on, as it is too tight. Lorazepam 0.5mg IV ordered and 0.3mg Nitro SL. Care is to be handed off to oncoming provider Clary Go [employer] pending repeat troponin and reevaluation. Expected disposition is possible admission for chest pain rule out. Imaging Data Radiologic Study: Imaging: CT Scan Radiologist's impression: EXAM: CT THORAX ABDOMEN CTA CLINICAL HISTORY: Retroperitoneal chest pain, R/O Aneurysm. TECHNIQUE: Imaging Protocol: Axial CT angiography was performed with multi- slice acquisition and multi-planar and/or 3D reconstructions. CONTRAST MATERIAL: Intravenous: Omnipaque 350 Contrast volume:100 ml COMPARISON: CT CT ABDOMEN PELVIS W from 09/08/2022 FINDINGS: CHEST: Pulmonary Arteries: No evidence of filling defects to suggest pulmonary emboli. Tracheobronchial tree: No bronchiectasis or mucus plugging. Mediastinum and Kemi: No dominant adenopathy or fluid collection. Pulmonary parenchyma: No consolidation or dominant measurable mass. Pleura: No effusion. No pneumothorax. Heart: The heart is notdilated. No coronary artery calcifications are seen. Aorta: Dilatation of the ascending aorta to 3.3 cm. Minimal atherosclerotic changes. No evidence of dissection. Bones: Unremarkable for age. Tubes, Catheters, and Lines: None. ABDOMEN and PELVIS: Liver: Normal size. Normal density. Stable low-density lesion felt to represent hemangioma on prior exams. Portal, Superior Mesenteric, and Splenic Veins: Unremarkable. Gallbladder and Biliary Tract: Status post cholecystectomy. No radiodense calculus. No biliary dilatation. Pancreas: Normal density, no abnormal calcifications or inflammatory process. Spleen: Normal. Adrenals: No masses seen. Kidneys: Normal size, contour and axis. No radiodense stones. No obstructive uropathy. No masses seen. Vasculature: Abdominal aorta non-dilated. Mild atherosclerotic changes. Branch vessels patent. Bowel: No obstruction or bowel wall thickening. Peritoneal Cavity: No ascites, collection or mesenteric inflammatory response. Lymph Nodes: Within normal limits. Soft Tissues: Unremarkable. Lymph Nodes: Within normal limits. Bones: Unremarkable for age.. IMPRESSION: 1. No evidence of pulmonary embolism. No evidence of aortic dissection. Mild dilatation of the ascending aorta to 3.3 cm. 2. No acute abdominal process. Lab Data Lab results reviewed: Yes I reviewed the patient's lab results. Labs: Laboratory Tests Range/Units 05/25/23 12:22 WBC (4.4-10.8) 10^3/uL 7.57 RBC (3.93-5.22) 10^6/uL 4.83 Hgb (11.2-15.7) g/dL 14.9 Hct (36.0-46.0) % 42.9 MCV (80-95) fL 89 MCH (27.0-33.0) pg 30.8 MCHC (32.0-36.0) % 34.7 RDW (11.7-14.6) % 11.8 Plt Count (130-400) 10^3/uL 264 MPV (8.0-11.0) fL 9.8 Immature Gran % 0.4 Neutrophils % 59.2 Lymphocytes % 29.1 Monocytes % 4.8 Eosinophils % 6.1 Basophils % 0.4 Nucleated RBC % (0.0-0.3) % 0.0 Absolute Neutrophils (1.2-6.7) 10^3/uL 4.49 Absolute Lymphocytes (1.2-3.4) 10^3/uL 2.20 Absolute Monocytes (0.1-0.8) 10^3/uL 0.36 Absolute Eosinophils (0.0-0.7) 10^3/uL 0.46 Absolute Basophils (0.0-0.2) 10^3/uL 0.03 PT (9.1-11.1) sec 10.4 INR (0.9-1.1) 1.0 APTT (23.6-32.8) sec 26.0 D-Dimer (<500) ng/mlFEU 860 H Sodium (136-145) mmol/L 137 Potassium (3.5-5.1) mmol/L 3.3 L Chloride (98-107) mmol/L 99 Carbon Dioxide (21.0-32.0) mmol/L 30.8 Anion Gap (3-11) mmol/L 7.2 BUN (7-18) mg/dL 11 Creatinine (0.55-1.02) mg/dL 0.9 Est GFR (CKD-EPI 2020) (mL/min/1.73m2) 67.92 Glucose (74-106) mg/dL 140 H Calcium (8.5-10.1) mg/dL 9.4 Magnesium (1.8-2.4) mg/dL 1.8 Total Bilirubin (0.2-1.0) mg/dL 0.8 AST (15-37) U/L 19 ALT (14-59) U/L 23 Alkaline Phosphatase (46-116) U/L 45 L Troponin I (<or=60) ng/L < 50 NT-Pro-B Natriuret Pep (<300) pg/mL 420 H Total Protein (6.4-8.2) g/dL 7.4 Albumin (3.4-5.0) g/dL 3.9 Lipase (16-77) U/L 27 Add-On Test Request DONE Core Measures Measure exclusions: not indicated <Clary Go NP - Last Filed: 05/25/23 21:40> 73-year-old female presents to the ER with chief complaint of chest pain, she reports that last night she began with some epigastric abdominal pain which radiates into her back between her shoulder blades, she is slightly nauseous reports increased pain with deep breathing which worsened this morning. She does have a past medical history of high cholesterol, hypertension, family history of colon cancer, anxiety and basal cell carcinoma. Surgical history includes cholecystectomy, hysterectomy, total knee replacement tubal ligation. She denies any recent long trips in a car or plane no lower extremity edema noted lungs are clear to auscultation bilaterally. She is slightly hypertensive upon arrival with a blood pressure of 166/84. Does have a strong family history of SD she reports her sister had a heart attack she is 2 years younger than her. She is a former smoker she quit smoking in 1975, initial heart score without troponin is approximately 7. Cardiac workup ordered including serial troponins, PT PTT, proBNP, initially chest x-ray ordered which was canceled changed to CTA chest abdomen pelvis. D- dimer and lipase also added on. Differential diagnosis includes but not limited to SD, NSTEMI, aortic aneurysm, PE, pneumonia, pleurisy. Initial aspirin 324 mg order was held pending CT to rule out aortic aneurysm. Initial troponin within normal limits, CT shows no evidence to suggest pulmonary emboli, slightly dilated ascending aorta 3.3 cm, with atherosclerotic changes. No evidence of dissection. Upon patient reevaluation she reports she is still having the pain with deep breathing. 2.5 mg of metoprolol IV ordered, 324 mg Aspirin, patient also reports that she is having hard time with beeping noises, her blood pressure is slightly elevated 152/106, this may be related to anxiety. I did mention morphine which patient declined at this time. ProBNP is slightly elevated at 420 D-dimer is 860. Glucose 140 potassium slightly low at 3.3, Informed by entry level staff accountant that patient is refusing to keep her BP cuff on, as it is too tight. Lorazepam 0.5mg IV ordered and 0.3mg Nitro SL. Care is to be handed off to oncoming provider Clary Go [employer] pending repeat troponin and reevaluation. Expected disposition is possible admission for chest pain rule out. Report of patient has been received and record has been reviewed. Patient's blood pressure has recovered with IV hydration. She did become hypotensive and bradycardic after receiving IV Lopressor and sublingual nitroglycerin. This has resolved. She continues to have her back and chest discomfort which is pleuritic and reproducible with deep breath and movement. She is agreeable to Toradol 15 mg IV push which she states is effective for her symptoms. Also given 1000 mg of acetaminophen with further effect and states her back pain and chest discomfort are now completely resolved and just faint when she takes a deep inspiration. Repeat EKG shows no evidence of ischemic changes. Her troponin will be repeated 1 more time but this pain does not seem consistent with ACS. Her third troponin resulted is negative. She has been hemodynamically stable with no further bradycardia or hypotension. She feels back to her baseline. She is given a supper tray which she did tolerate well. She is looking forward to discharge to home. I think it is reasonable to complete further cardiac evaluation outpatient with echocardiogram and stress testing. Orders have been placed. She was advised to follow-up with her primary care provider and return here immediately for new or worsening symptoms. HPI <Sangeetha Damon NP - Last Filed: 05/25/23 15:31> General Mode of arrival: ambulatory . Date/Time Provider Initiated Documentation: 05/25/23 12:15 . Limitations to Documentation: no limitations . Information obtained by: patient, RN notes reviewed and old records reviewed . HPI Narrative: 73-year-old female presents to the ER with chief complaint of chest pain, she reports that last night she began with some epigastric abdominal pain which radi ates into her back between her shoulder blades, she is slightly nauseous reports increased pain with deep breathing which worsened this morning. She does have a past medical history of high cholesterol, hypertension, family history of colon cancer, anxiety and basal cell carcinoma. Surgical history includes cholecystectomy, hysterectomy, total knee replacement tubal ligation. She denies any recent long trips in a car or plane no lower extremity edema noted lungs are clear to auscultation bilaterally. She is slightly hypertensive upon arrival with a blood pressure of 166/84. Does have a strong family history of SD she reports her sister had a heart attack she is 2 years younger than her. She is a former smoker she quit smoking in 1975, initial heart score without troponin is approximately 7. Related Data Home Medications Medication Instructions Recorded Confirmed Lactobacillus acidophilus 1 mg 1 cap PO DAILY 04/29/14 05/25/23 (100 million cell) tablet ascorbic acid (vitamin C) 1,000 mg 1,000 mg PO DAILY 04/29/14 05/25/23 tablet acetaminophen 325 mg tablet 1 tab PO PRN PRN 06/25/14 05/25/23 (Tylenol) epinephrine 0.3 mg/0.3 mL 0.3 mg subcut DIRECTED PRN 02/14/21 05/25/23 injection, auto-injector hydrochlorothiazide 12.5 mg tablet 12.5 mg PO DAILY 02/14/21 05/25/23 cholecalciferol (vitamin D3) 25 25 mcg PO DAILY 11/28/22 05/25/23 mcg (1,000 unit) capsule hydroxyzine HCl 25 mg tablet 25 mg PO Q4H PRN 11/28/22 05/25/23 multivitamin (Daily Multi-Vitamin 1 tab PO DAILY 11/28/22 05/25/23 tablet) naproxen 375 mg tablet 375 mg PO BID PRN 11/28/22 05/25/23 propranolol 20 mg tablet 20 mg PO BID 11/28/22 05/25/23 simvastatin 20 mg tablet 20 mg PO DAILY 11/28/22 05/25/23 lutein 6 mg capsule 6 mg PO DAILY 05/25/23 05/25/23 vitamin A 2,400 mcg capsule 2,400 mcg PO DAILY 05/25/23 05/25/23 vitamin E 268 mg (400 unit) capsule 268 mg PO DAILY 05/25/23 05/25/23 Allergies Allergy/AdvReac Type Severity Reaction Status Date / Time doxycycline Allergy Severe systemic Verified 03/07/23 13:13 reaction/swelling verapamil Allergy Severe Verified 03/07/23 13:13 piperacillin [From Zosyn] Allergy Intermediate Verified 03/07/23 13:13 tazobactam [From Zosyn] Allergy Intermediate Verified 03/07/23 13:13 shellfish derived Allergy Unknown Verified 03/07/23 13:13 ciprofloxacin [From Cipro] Allergy Verified 03/07/23 13:13 metronidazole Allergy Anaphylaxis Verified 03/07/23 13:13 cortisone AdvReac Mild shakes Verified 03/07/23 13:13 OPIATES Allergy Intermediate PANIC Uncoded 03/07/23 13:13 ATTACKS General Stated Complaint: Chest Pain UMBERTO: 2 Review of Systems <Sangeetha Damon NP - Last Filed: 05/25/23 15:31> All systems reviewed & are unremarkable except as noted in HPI and below Cardiovascular Cardiovascular: Reports chest pain, Denies pedal edema, Denies leg edema and Reports dyspnea Respiratory Respiratory: Denies change in phlegm color, Reports cough, Denies hemoptysis, Reports pain on inspiration and Reports dyspnea Gastrointestinal Gastrointestinal: Reports abdominal pain (Upper abdominal pain) and Reports nausea PFSH <Sangeetha Damon NP - Last Filed: 05/25/23 15:31> All Active Problems (Updated 05/25/23 @ 19:39 by Clary Go NP) Atypical chest pain (Acute) Chest pain, pleuritic (Acute) Encounter for pessary maintenance (Acute) Vaginal vault prolapse after hysterectomy (Acute) Cystocele (Acute) Acute diverticulitis (Acute) Essential hypertension (Chronic) Chronic migraine (Chronic 07/07/14) Medical History Family history of colon cancer Hyperlipidemia Migraine headache with aura Osteoarthritis Hearing loss History of basal cell carcinoma Hypertension Anxiety Hip pain, right Knee pain, right History of diverticulosis Lesion of skin of face Presence of pessary Chest pain Hx of skin cancer, basal cell Surgical History History of tubal ligation S/P TKR (total knee replacement) S/P hysterectomy S/P cholecystectomy Family History Mother Colon cancer Social History Smoking/Tobacco Use Status: Former Tobacco Use Smoking risk assessment performed?: Yes Alcohol Intake: never Drug use: Never Substance use type: does not use Do you feel safe at home: Yes Do you feel safe in your relationship?: Yes History History 2 Para Hx # Term Pregnancies Multiple births Hx # Pregnancies Ectopic pregnancies AB induced Hx Number of Living Children AB spontaneous Exam <Sangeetha Damon NP - Last Filed: 05/25/23 15:31> Narrative Exam Narrative: Constitutional: Alert and oriented x3. Appears stated age. Thin body habitus. Head: Normocephalic, no trauma. Eyes: Pupils PERRL, Red reflex noted, EOM's intact. Eyelids symmetrical without lesions, discharge, or swelling. ENT: Bilateral TM's WNL, External ear normal to inspection, no mastoid TTP, swelling, or erythema, Nasal turbinates WNL, no nasal discharge. Normal dentition, Posterior pharynx WNL, no exudate. Chest: RRR, Normal S1, S2, distal pulses intact. Patient is hypertensive upon arrival, 170/70's 166/84 she does increase to 200/100 periodically. Resp: Lungs clear to auscultation bilaterally, no wheezes, rales, or rhonchi. Patient has pain with deep breathing, radiates to her left shoulder and chest, nontender with palpation to touch it is nonreproducible. Abdomen: Soft, non-distended, Normoactive bowel sounds all 4 quads. Musculoskeletal: 5/5 strength to all four extremities. No bilateral lower extremity swelling noted, Skin: No suspicious rashes or lesions. Capillary refill less than 2 sec. Neurologic: Cranial nerves II-XII intact. Alert and oriented x 3. Motor: No deficits noted. Sensory: Intact bilaterally all 4 extremities. Reflexes: DTR's intact bilaterally.. Hematologic/Lymphatic: No ecchymosis, no lymphadenopathy. Course <Sangeetha Damon NP - Last Filed: 05/25/23 15:31> Vital Signs Vital signs: Vital Signs Temperature 36.8 C 05/25/23 12:10 Pulse 73 05/25/23 12:10 Respiratory Rate 10 L 05/25/23 12:10 Blood Pressure 166/84 H 05/25/23 12:10 Pulse Oximetry 100 05/25/23 12:10 Temperature 36.8 C 05/25/23 12:10 Temperature Source Oral 05/25/23 12:10 Pulse 73 05/25/23 12:10 Respiratory Rate 10 L 05/25/23 12:10 Blood Pressure 166/84 H 05/25/23 12:10 Blood Pressure Position Supine 05/25/23 12:10 Pulse Oximetry 100 05/25/23 12:10 Oxygen Delivery Method Room Air 05/25/23 12:10 Oxygen Flow Rate 0 05/25/23 12:10 Pain Level 8 05/25/23 12:10 Sign Out <Sangeetha Damon NP - Last Filed: 05/25/23 15:31> Sign Out Data: Sign Out Comment: Pending repeat Trop, and re-eval. Possible admission versus Discharge Last updated by Sangeetha Damon NP at 05/25/23 15:24
[2023-05-25 12:30] LABS: Abs Immature Grans 0.03 10^3/uL (0.0-0.06); Absolute Basophil Count 0.03 10^3/uL (0.0-0.2); Absolute Eosinophil Count 0.46 10^3/uL (0.0-0.7); Absolute Monocyte Count 0.36 10^3/uL (0.1-0.8); Absolute Neutrophil Count 4.49 10^3/uL (1.2-6.7); Basophils % 0.4; Eosinophils % 6.1; HCT 42.9 % (36.0-46.0); HGB 14.9 g/dL (11.2-15.7); Immature Grans % 0.4; Lymphocytes % 29.1; MCH 30.8 pg (27.0-33.0); MCHC 34.7 % (32.0-36.0); MCV 89 fL (80-95); MPV 9.8 fL (8.0-11.0); Monocytes % 4.8; Neutrophils % 59.2; Platelet Count 264 10^3/uL (130-400); RBC 4.83 10^6/uL (3.93-5.22); RDW 11.8 % (11.7-14.6); RDW-SD 38.5 fL; WBC 7.57 10^3/uL (4.4-10.8)
[2023-05-25 12:41] LABS: Prothrombin Time 10.4 sec (9.1-11.1)
[2023-05-25 12:51] LABS: ALT 23 U/L (14-59); AST 19 U/L (15-37); Albumin 3.9 g/dL (3.4-5.0); Alkaline Phosphatase 45 U/L (46-116); Anion Gap 7.2 mmol/L (3-11); BUN 11 mg/dL (7-18); Bilirubin, Total 0.8 mg/dL (0.2-1.0); CO2 30.8 mmol/L (21.0-32.0); CREATININE 0.9 mg/dL (0.55-1.02); Calcium 9.4 mg/dL (8.5-10.1); Chloride 99 mmol/L (98-107); Estimated GFR 67.92 (mL/min/1.73m2); Glucose 140 mg/dL (74-106); Magnesium 1.8 mg/dL (1.8-2.4); NT-proBNP 420 pg/mL (<300); Potassium 3.3 mmol/L (3.5-5.1); Sodium 137 mmol/L (136-145); Total Protein 7.4 g/dL (6.4-8.2); Troponin I < 50 ng/L (<or=60)
[2023-05-25 12:54] LABS: Lab Add On Test DONE
[2023-05-25 13:07] LABS: Lipase 27 U/L (16-77)
[2023-05-25 13:26] LABS: D-Dimer 860 ng/mlFEU (<500)
[2023-05-25] MEDS: Normal Saline - Diluent 50 ML VIAL IV (13:47)
[2023-05-25] MEDS: Omnipaque 350 MG/ML 100 ML BTL IJ (13:48)
[2023-05-25] MEDS: Aspirin 81 MG CHEW 324 MG CH (14:51)
[2023-05-25] MEDS: Metoprolol 5 MG/5 ML VIAL 2.5 MG IVP (14:55)
[2023-05-25] MEDS: Normal Saline 500 ML IV (15:40)
[2023-05-25 16:00] LABS: Troponin I < 50 ng/L (<or=60)
--- NOTE | 2023-05-25 16:00 | RT.EKG_ITS ---
APPROVED REPORT Exam: Resting ECG Reason for Exam: chest pain Patient Location: E HR:54 bpm ECG Measurements Heart Rate 54 AXIS SD 163 P -14 QRSd 99 QRS 14 QT 435 T 37 QTc 413 Conclusion Sinus bradycardia
[2023-05-25] MEDS: Ketorolac 15 MG/ML VIAL IVP (16:17)
[2023-05-25] MEDS: ACETAMINOPHEN 1,000 MG/100 ML BTL 400 MG IVPB (17:06)
[2023-05-25 19:07] LABS: Troponin I < 50 ng/L (<or=60)
== END 2023-05-25 19:58 | disposition home or self-care (01) ==
PROVIDERS: Registered Nurse Emergency; Emergency Provider Nurse Practitioner Acute Care; PCP Nurse Practitioner Family
DX: R07.89 Other chest pain (principal); R10.9 Unspecified abdominal pain; R11.0 Nausea; Z87.891 Personal history of nicotine dependence
CPT/HCPCS: 36415; 71275; 74175; 80053; 83690; 93005; 96361; 96374; 96375; 99285; 83735; 83880; 84484; 85025; 85379; 85610; 85730; 93010; 99284; J0131; J1885; J3490

== ENCOUNTER 2024-04-12 06:36 | Emergency (ER) | payer MEDICARE, SELFPAY ==
[2024-04-12] VITALS (33 sets, daily range): BP systolic 127–175; BP diastolic 55–88; PULSE 62–112; RESP 17–18; O2SAT 93–99
--- NOTE | 2024-04-12 06:45 | RT.EKG_ITS ---
APPROVED REPORT Exam: Resting ECG Reason for Exam: syncope Patient Location: E HR:71 bpm ECG Measurements Heart Rate 71 AXIS ME 194 P 75 QRSd 97 QRS 3 QT 389 T 34 QTc 422 Conclusion Sinus rhythm...normal P axis, V-rate 60- 99
--- NOTE | 2024-04-12 07:29 | ED.GENADUL_ITS ---
Discharge Plan Disposition Patient Disposition: Home Condition: Stable Discharge Details Clinical Impression: Acute diverticulitis, Diverticulitis of sigmoid colon Primary Care Provider: Dolly Albert ED Provider: Manav Gonzalez Home Meds and New Rx's Prescriptions: New rifaximin 550 mg tablet 550 mg PO BID Qty: 41 0RF Continued simvastatin 20 mg tablet 20 mg PO DAILY propranolol 20 mg tablet 20 mg PO BID naproxen 375 mg tablet 375 mg PO BID PRN hydroxyzine HCl 25 mg tablet 25 mg PO Q4H PRN multivitamin [Daily Multi-Vitamin] Tablet 1 tab PO DAILY cholecalciferol (vitamin D3) 25 mcg (1,000 unit) capsule 25 mcg PO DAILY ascorbic acid (vitamin C) 1,000 MG tablet 1,000 mg PO DAILY Lactobacillus acidophilus 1 MG tablet 1 cap PO DAILY acetaminophen [Tylenol] 325 MG tablet 1 tab PO PRN PRN epinephrine 0.3 mg/0.3 mL auto-injector 0.3 mg subcut DIRECTED PRN hydrochlorothiazide 12.5 mg tablet 12.5 mg PO DAILY lutein 6 mg capsule 6 mg PO DAILY Rx Instructions: give with meal/snack vitamin E 268 mg (400 unit) capsule 268 mg PO DAILY vitamin A 2,400 mcg capsule 2,400 mcg PO DAILY Discharge Instructions Instructions: Diverticulitis Additional Instructions: Please take full course of antibiotic as prescribed. Be sure to rest over the next few days. Be sure to maintain adequate hydration. Drink plenty of clear fluids frequently to stay hydrated. Please contact your primary care physician to arrange follow-up. Return to the ER immediately for any worsening or new concerning symptoms. Referrals: Dolly Albert [Primary Care Provider] - Discharge Data Discharge Date/Time-TO BE ENTERED AT DEPARTURE: 04/12/24 11:14 HPI General Mode of arrival: ambulatory . Date/Time Provider Initiated Documentation: 04/12/24 06:46 . Limitations to Documentation: no limitations . Information obtained by: patient and family . HPI Narrative: 73yo female with history of diverticulitis, here with left low back pain and lower abdominal pain since last night. Patient notes associated dizziness this AM upon waking. Patient got up to go to the bathroom, urinated, and while return ing to bed she had a syncopal episode and collapsed to the floor. She did not sustain any injury during the episode. She has no associated headache, numbness or weakness, visual changes, chest pain, or shortness of breath. Pain in her low back feels achy. It is localized to the left low back. She notes associated nausea. No vomiting. Related Data Home Medications ?Medication ?Instructions ?Recorded ?Confirmed Lactobacillus acidophilus 1 mg 1 cap PO DAILY 04/29/14 04/12/24 (100 million cell) tablet ascorbic acid (vitamin C) 1,000 mg 1,000 mg PO DAILY 04/29/14 04/12/24 tablet acetaminophen 325 mg tablet 1 tab PO PRN PRN 06/25/14 04/12/24 (Tylenol) epinephrine 0.3 mg/0.3 mL 0.3 mg subcut DIRECTED PRN 02/14/21 04/12/24 injection, auto-injector hydrochlorothiazide 12.5 mg tablet 12.5 mg PO DAILY 02/14/21 04/12/24 cholecalciferol (vitamin D3) 25 25 mcg PO DAILY 11/28/22 04/12/24 mcg (1,000 unit) capsule hydroxyzine HCl 25 mg tablet 25 mg PO Q4H PRN 11/28/22 04/12/24 multivitamin (Daily Multi-Vitamin 1 tab PO DAILY 11/28/22 04/12/24 tablet) naproxen 375 mg tablet 375 mg PO BID PRN 11/28/22 04/12/24 propranolol 20 mg tablet 20 mg PO BID 11/28/22 04/12/24 simvastatin 20 mg tablet 20 mg PO DAILY 11/28/22 04/12/24 lutein 6 mg capsule 6 mg PO DAILY 05/25/23 04/12/24 vitamin A 2,400 mcg capsule 2,400 mcg PO DAILY 05/25/23 04/12/24 vitamin E 268 mg (400 unit) capsule 268 mg PO DAILY 05/25/23 04/12/24 rifaximin 550 mg tablet 550 mg PO BID #41 tabs 04/12/24 Previous Rx's ?Medication ?Instructions ?Recorded rifaximin 550 mg tablet 550 mg PO BID #41 tabs 04/12/24 Allergies Allergy/AdvReac Type Severity Reaction Status Date / Time doxycycline Allergy Severe systemic Verified 04/12/24 06:43 reaction/swelling verapamil Allergy Severe Anaphylaxis Verified 04/12/24 06:43 piperacillin (From Zosyn) Allergy Intermediate Anaphylaxis Verified 04/12/24 06:43 tazobactam (From Zosyn) Allergy Intermediate Anaphylaxis Verified 04/12/24 06:43 shellfish derived Allergy Unknown Anaphylaxis Verified 04/12/24 06:43 ciprofloxacin (From Cipro) Allergy Anaphylaxis Verified 04/12/24 06:43 metronidazole Allergy Anaphylaxis Verified 04/12/24 06:43 cortisone AdvReac Mild shakes Verified 04/12/24 06:43 OPIATES Allergy Intermediate PANIC Uncoded 04/12/24 06:43 ATTACKS General Stated Complaint: Abd Prob Review of Systems All systems reviewed & are unremarkable except as noted in HPI and below Constitutional Constitutional: Denies fever(s) Gastrointestinal Gastrointestinal: Reports as per HPI, Denies hematochezia, Denies diarrhea, Denies loose stools, Reports nausea, Denies vomiting and Denies hematemesis Exam Const General: cooperative and no acute distress HENMT Mouth: moist mucous membranes Eyes Conjunctivae: normal conjunctivae Sclera: normal sclerae Neck Neck: supple Resp Auscultation: clear to auscultation bilaterally, no rales, no rhonchi and no wheezes Cardio Rate: regular rate and not tachycardic Rhythm: regular rhythm GI Palpation: soft, not firm, no guarding, no masses, not rigid and tender in the LLQ and suprapubicly Skin General skin exam: no rashes or lesions noted Neuro General: patient alert, patient awake and tone normal Extrem General: no edema Psych Appearance: grossly normal Mental Status: mental status grossly normal Course Vital Signs Vital signs: Vital Signs Pulse 87 04/12/24 06:39 Respiratory Rate 18 04/12/24 06:39 Blood Pressure 175/85 H 04/12/24 06:39 Pulse Oximetry 98 04/12/24 06:39 Pulse 68 04/12/24 07:16 Pulse 85 04/12/24 07:20 Respiratory Rate 18 04/12/24 06:39 Respiratory Effort Normal, Non-Labored 04/12/24 06:42 Blood Pressure 133/67 04/12/24 07:16 Blood Pressure Mean 90 04/12/24 07:16 Pulse Oximetry 97 04/12/24 07:20 Oxygen Delivery Method Room Air 04/12/24 06:39 Oxygen Flow Rate 0 04/12/24 06:39 Medical Decision Making 744??73-year-old female with history of diverticulitis, hypertension, here today with lower abdominal pain, left low back pain, dizziness with cold sweats and a syncopal episode this morning. Patient did not sustain any trauma during syncopal episode. Patient hypertensive on arrival. Now hemodynamically stable. Saturating well in no respiratory distress. Screening EKG was performed and reviewed and interpreted by me: Please report, sinus rhythm 71 bpm. Patient does have lower abdominal tenderness. I am concerned about potential acute exacerbation of diverticulitis. Consider bowel perforation and other acute surgical etiology. Plan to obtain emergent CT of the abdomen pelvis. Consider renal stone will obtain urinalysis. Will give ondansetron IV for nausea. -- Patient to receive IV fluid bolus given nausea, inability to tolerate oral fluid, concern for hypovolemia, needing urine specimen. 918 --CT of the abdomen pelvis was interpreted by radiology: Acute sigmoid diverticulitis. No perforation or abscess. Given symptoms including syncope, I will like to treat with antibiotic. Patient has multiple antibiotic allergies resulting in anaphylaxis. I discussed this with the patient and she provided informed consent to treat with previously use antibiotic rifaximin. 1035 --patient reassessed and ambulating without difficulty. 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 Plan for discharge with close outpatient follow-up. I will initiate treatment with rifaximin here in the emergency department. Disposition decision was made weighing the risks and benefits of hospitalization versus outpatient treatment, the risk for further decompensation, and the patient's wishes. The patient was stable and requested discharge. Prior to discharge, my usual and customary return precautions were reviewed with the patient - this included follow-up instructions and reason to return to the emergency department if condition worsens, does not improve as expected, or other new concerns arise. Lab Data Lab results reviewed: Yes I reviewed the patient's lab results. Labs: Laboratory Tests Range/Units 04/12/24 04/12/24 04/12/24 07:20 08:30 10:00 WBC (4.4-10.8) 10^3/uL 12.44 H RBC (3.93-5.22) 10^6/uL 4.25 Hgb (11.2-15.7) g/dL 13.5 Hct (36.0-46.0) % 38.0 MCV (80-95) fL 89 MCH (27.0-33.0) pg 31.8 MCHC (32.0-36.0) % 35.5 RDW (11.7-14.6) % 11.9 Plt Count (130-400) 10^3/uL 211 MPV (8.0-11.0) fL 9.8 Immature Gran % % 0.4 Neutrophils % % 78.9 Lymphocytes % % 11.5 Monocytes % % 8.6 Eosinophils % % 0.4 Basophils % % 0.2 Nucleated RBC % (0.0-0.3) % 0.0 Absolute Neutrophils (1.2-6.7) 10^3/uL 9.82 H Absolute Lymphocytes (1.2-3.4) 10^3/uL 1.43 Absolute Monocytes (0.1-0.8) 10^3/uL 1.07 H Absolute Eosinophils (0.0-0.7) 10^3/uL 0.05 Absolute Basophils (0.0-0.2) 10^3/uL 0.02 Sodium (136-145) mmol/L 139 Potassium (3.5-5.1) mmol/L 3.3 L Chloride (98-107) mmol/L 102 Carbon Dioxide (21.0-32.0) mmol/L 29.6 Anion Gap (3-11) mmol/L 7.4 BUN (7-18) mg/dL 10 Creatinine (0.55-1.02) mg/dL 0.9 Est GFR (CKD-EPI 2020) (mL/min/1.73m2) 67.92 Glucose (74-106) mg/dL 120 H Calcium (8.5-10.1) mg/dL 9.0 Magnesium (1.8-2.4) mg/dL 1.9 Total Bilirubin (0.2-1.0) mg/dL 1.20 H AST (15-37) U/L 28 ALT (14-59) U/L 27 Alkaline Phosphatase (46-116) U/L 55 Troponin I (<or=51) ng/L 5 5 Total Protein (6.4-8.2) g/dL 7.0 Albumin (3.4-5.0) g/dL 3.4 Lipase (16-77) U/L 20 Urine Color (Yellow) Yellow Urine Clarity (Clear) Clear Urine pH (5-8) 7.0 Ur Specific [place] (1.005-1.025) 1.010 Urine Protein (Neg-Trace) mg/dL Negative Urine Ketones (Negative) mg/dL 15 H Urine Blood (Negative) Trace-intact H Urine Nitrite (Negative) Negative Urine Bilirubin (Negative) Negative Urine Urobilinogen (Up to 0.2) mg/dL 0.2 Ur Leukocyte Esterase (Negative) Negative Urine RBC (0-2) HPF 0-2 Urine WBC (0-5) HPF 0-2 Ur Epithelial Cells (Negative) HPF Negative Urine Crystals (Negative) HPF Negative Urine Bacteria (Negative) HPF Negative Urine Casts (Negative) LPF Negative Urine Mucus (Negative) Negative Ur Culture Indicated? No Urine Glucose (Negative) mg/dL Negative Quality:SDOH Health Related Social Needs: No Data to Display PFSH All Active Problems (Updated 04/12/24 @ 09:21 by Manav Gonzalez MD) Diverticulitis of sigmoid colon (Acute) Acute diverticulitis (Acute) Status post vaginopexy (Acute) Trachelectomy, colpopexy, anterior and posterior colporrhaphy, urethral suspension with sling at [facility] 07/11/2023 Encounter for pessary maintenance (Acute) Vaginal vault prolapse after hysterectomy (Acute) Cystocele (Acute) Acute diverticulitis (Acute) Essential hypertension (Chronic) Chronic migraine (Chronic 07/07/14) Medical History Family history of colon cancer Hyperlipidemia Migraine headache with aura Osteoarthritis Hearing loss History of basal cell carcinoma Hypertension Anxiety Hip pain, right Knee pain, right History of diverticulosis Lesion of skin of face Presence of pessary Chest pain Hx of skin cancer, basal cell Surgical History History of tubal ligation S/P TKR (total knee replacement) S/P hysterectomy S/P cholecystectomy Family History Mother Colon cancer Social History Smoking/Tobacco Use Status: Former Tobacco Use Smoking risk assessment performed?: Yes Alcohol Intake: never Drug use: Never Substance use type: does not use Do you feel safe at home: Yes Do you feel safe in your relationship?: Yes History History 2 Para Hx # Term Pregnancies Multiple births Hx # Pregnancies Ectopic pregnancies AB induced Hx Number of Living Children AB spontaneous
[2024-04-12 07:30] LABS: Abs Immature Grans 0.05 10^3/uL (0.0-0.06); Absolute Eosinophil Count 0.05 10^3/uL (0.0-0.7); Absolute Lymphocyte Count 1.43 10^3/uL (1.2-3.4); Absolute Monocyte Count 1.07 10^3/uL (0.1-0.8); Basophils % 0.2 %; Eosinophils % 0.4 %; HGB 13.5 g/dL (11.2-15.7); Immature Grans % 0.4 %; Lymphocytes % 11.5 %; MCH 31.8 pg (27.0-33.0); MCHC 35.5 % (32.0-36.0); MCV 89 fL (80-95); MPV 9.8 fL (8.0-11.0); Monocytes % 8.6 %; Neutrophils % 78.9 %; Platelet Count 211 10^3/uL (130-400); RBC 4.25 10^6/uL (3.93-5.22); RDW 11.9 % (11.7-14.6); RDW-SD 38.9 fL; WBC 12.44 10^3/uL (4.4-10.8)
[2024-04-12 07:37] LABS: Absolute Basophil Count 0.02 10^3/uL (0.0-0.2); Absolute Neutrophil Count 9.82 10^3/uL (1.2-6.7)
[2024-04-12 07:55] LABS: ALT 27 U/L (14-59); AST 28 U/L (15-37); Albumin 3.4 g/dL (3.4-5.0); Alkaline Phosphatase 55 U/L (46-116); Anion Gap 7.4 mmol/L (3-11); BUN 10 mg/dL (7-18); CO2 29.6 mmol/L (21.0-32.0); CREATININE 0.9 mg/dL (0.55-1.02); Chloride 102 mmol/L (98-107); Estimated GFR 67.92 (mL/min/1.73m2); Glucose 120 mg/dL (74-106); Lipase 20 U/L (16-77); Magnesium 1.9 mg/dL (1.8-2.4); Potassium 3.3 mmol/L (3.5-5.1); Sodium 139 mmol/L (136-145); Troponin I 5 ng/L (<or=51)
[2024-04-12] MEDS: Ondansetron 4 MG/2 ML VIAL IVP (08:07)
[2024-04-12] MEDS: Normal Saline 500 ML IV (08:07)
[2024-04-12] MEDS: Normal Saline Flush 10 ML SYR IVP (08:08)
--- NOTE | 2024-04-12 08:15 | DI.CT_ITS ---
Exam(s) CT ABDOMEN PELVIS W EXAM: CT ABDOMEN PELVIS W CLINICAL HISTORY: lower abd pain, left low back pain, syncope. TECHNIQUE: Imaging Protocol: Axial computed tomography images with coronal and sagittal reformatted images were created and reviewed CONTRAST MATERIAL: Intravenous: Omnipaque 350 Contrast volume:85 ml Oral: / no COMPARISON: CT CT ABDOMEN PELVIS W from 02/14/[address] ABDOMEN PELVIS W from 09/08/[address] THORAX ABDOMEN CTA from 05/25/2023 FINDINGS: ABDOMEN and PELVIS: Lung Bases: No acute findings. Liver: Normal density. Stable meningioma lateral right lobe. No suspicious mass. Gallbladder and biliary tract: Status post cholecystectomy. No biliary dilation. Pancreas: Normal density. No abnormal calcifications or inflammatory process. No evidence of mass. Spleen: Normal. Kidneys: Normal size, contour and axis. No radiodense stones. No obstructive uropathy. No suspicious masses seen. Adrenal glands: No masses seen. Vasculature: Abdominal aorta non-dilated. Soft tissues: Unremarkable. Bladder: No gross wall thickening. No calculi.No focal mass. Bowel: No obstruction. Diverticulosis of the lower descending and sigmoid colon. Wall thickening of the distal sigmoid and surrounding inflammation consistent with diverticulitis. Small amount of adj acent fluid. No focal abscess or perforation. Bones: Unremarkable for age. Reproductive organs: Status post hysterectomy. Lymph nodes: No pathologically enlarged lymph nodes. IMPRESSION:: Sigmoid diverticulitis. Findings called to Dr. Gonzalez of the emergency department. RADIATION DOSE DELIVERED: 320.42mGy.cm Total DLP DATA REPOSITORY: All CT scans at this facility are submitted to the National Radiology Data Registry (NRDR) Dose Index Registry (DIR) with the [employer] (ACR). RADIATION OPTIMIZATION: All CT scans at this facility use at least one of these dose optimization te chniques: automated exposure control; mA and/or kV adjustment per patient size (includes targeted exa ms where dose is matched to clinical indication); or iterative reconstruction.
[2024-04-12] MEDS: Normal Saline - Diluent 50 ML VIAL IJ (08:45)
[2024-04-12] MEDS: Omnipaque 350 MG/ML 500 ML BTL-Imaging package IJ (08:46)
[2024-04-12 09:00] LABS: Troponin I 5 ng/L (<or=51)
[2024-04-12 10:32] LABS: Bilirubin Negative (Negative); Blood Trace-intact (Negative); Clarity Clear (Clear); Glucose Negative (Negative); Ketones 15 mg/dL (Negative); Leukocyte Esterase Negative (Negative); Nitrite Negative (Negative); Urobilinogen 0.2 mg/dL (Up to 0.2)
[2024-04-12 10:45] LABS: Bacteria Negative HPF (Negative); C & S Indicated? No; Casts Negative LPF (Negative); Crystals Negative HPF (Negative); Epithelial Cells Negative HPF (Negative); Mucus Negative (Negative); RBC 0-2 HPF (0-2); WBC 0-2 HPF (0-5)
[2024-04-12] MEDS: Rifaximin 550 MG TAB PO (10:47)
== END 2024-04-12 11:14 | disposition home or self-care (01) ==
PROVIDERS: Emergency Provider Student in an Organized Health Care Education/Training Program; PCP Nurse Practitioner Family
DX: K57.32 Diverticulitis of large intestine without perforation or abscess without bleeding (principal); M54.50 Low back pain, unspecified; R10.30 Lower abdominal pain, unspecified; R55 Syncope and collapse; I10 Essential (primary) hypertension; E78.5 Hyperlipidemia, unspecified; Z87.891 Personal history of nicotine dependence
CPT/HCPCS: 36415; 80053; 83690; 93005; 96374; 99285; 74177; 81003; 81015; 83735; 84484; 85025; 93010; 99284; J2405

== ENCOUNTER 2024-04-16 08:13 | Emergency (ER) | payer MEDICARE, SELFPAY ==
[2024-04-16 08:16] VITALS: BP 196/89; PULSE 76; RESP 17; TEMP 36.8; O2SAT 100
[2024-04-16 08:22] VITALS: BP 196/89; PULSE 76; RESP 17; TEMP 36.8; O2SAT 100
--- NOTE | 2024-04-16 08:45 | RT.EKG_ITS ---
APPROVED REPORT Exam: Resting ECG Reason for Exam: presyncope Patient Location: E HR:62 bpm ECG Measurements Heart Rate 62 AXIS [place] 160 P -5 QRSd 104 QRS 6 QT 409 T 36 QTc 417 Conclusion Sinus rhythm...normal P axis, V-rate 60- 99 Nonspecific repolarization abnormalities...ST dep, T neg, 2-3 leads Normal sinus rhythm at a rate of 62. Normal axis. Interventricular conduction delay. [place] and QTc wi thin normal limits. T wave flattening in lead III. Mild left lateral chest wall ST segment depressi ons. Similar to prior. Prior dated earlier this month. No acute injury pattern. No ST segment neetu vations.
--- NOTE | 2024-04-16 08:51 | ED.GENADUL_ITS ---
Discharge Plan Disposition Patient Disposition: Home Condition: Good Discharge Details Clinical Impression: Abdominal pain, Anxiety, Hypomagnesemia, Blood in urine Primary Care Provider: Dolly Albert ED Provider: Marilin Pires Home Meds and New Rx's Prescriptions: Continued simvastatin 20 mg tablet 20 mg PO DAILY propranolol 20 mg tablet 20 mg PO BID naproxen 375 mg tablet 375 mg PO BID PRN hydroxyzine HCl 25 mg tablet 25 mg PO Q4H PRN multivitamin [Daily Multi-Vitamin] Tablet 1 tab PO DAILY cholecalciferol (vitamin D3) 25 mcg (1,000 unit) capsule 25 mcg PO DAILY ascorbic acid (vitamin C) 1,000 MG tablet 1,000 mg PO DAILY Lactobacillus acidophilus 1 MG tablet 1 cap PO DAILY acetaminophen [Tylenol] 325 MG tablet 1 tab PO PRN PRN epinephrine 0.3 mg/0.3 mL auto-injector 0.3 mg subcut DIRECTED PRN hydrochlorothiazide 12.5 mg tablet 12.5 mg PO DAILY lutein 6 mg capsule 6 mg PO DAILY Rx Instructions: give with meal/snack vitamin E 268 mg (400 unit) capsule 268 mg PO DAILY vitamin A 2,400 mcg capsule 2,400 mcg PO DAILY rifaximin 550 mg tablet 550 mg PO BID Qty: 41 0RF Discharge Instructions Instructions: Lorazepam, Abdominal Pain, Adult ED, Anxiety, Adult ED Additional Instructions: As we discussed, your labs and exam are quite reassuring here today. As the pain associated with your diverticulitis has improved, I do not feel that you need to continue with antibiotics at this point. Please continue to encourage hydration. You may advance diet as tolerated. I would like for you to be reevaluated by your primary care at the end of this week or beginning of next week. When you start feeling like you may pass out or lightheaded, please try the box breathing as we discussed. May also use the Ativan as prescribed, you may take 1 tab every 6 hours as needed for anxiety. However, do not drive or drink alcohol while on this medication. I would encourage you to try not on pharmacologic options first. This includes breathing and for the count of 4, holding for the count of 4, breathing out for the count of 4 and then holding again for the count of 4. This will help slow down your breathing and should help to resolve that lightheaded feeling. If you develop fever/chills, inability stay hydrated, increased pain or other new/worsening symptoms please seek care urgently once again. Referrals: Dolly Albert [Primary Care Provider] - [facility] General Date/Time Provider Initiated Documentation: 04/16/24 08:26 . Limitations to Documentation: no limitations . Information obtained by: patient, family, RN notes reviewed and old records reviewed . History of Present Illness 73 year old F presents to the emergency department with the chief complaint of Epigastric discomfort, presyncope, Patient reports no radiation. Patient started experiencing this hour(s) and it has been constant. No relieving factors improve symptom(s), Eating worsens symptoms . Patient notes denies chest pain, cough, fever/chills, headaches, loss of appetite, rash, shortness of breath and syncope (Did feel lightheaded and presyncopal). Patient did receive the following treatments prior to arrival, none Related Data Home Medications ?Medication ?Instructions ?Recorded ?Confirmed Lactobacillus acidophilus 1 mg 1 cap PO DAILY 04/29/14 04/16/24 (100 million cell) tablet ascorbic acid (vitamin C) 1,000 mg 1,000 mg PO DAILY 04/29/14 04/16/24 tablet acetaminophen 325 mg tablet 1 tab PO PRN PRN 06/25/14 04/16/24 (Tylenol) epinephrine 0.3 mg/0.3 mL 0.3 mg subcut DIRECTED PRN 02/14/21 04/16/24 injection, auto-injector hydrochlorothiazide 12.5 mg tablet 12.5 mg PO DAILY 02/14/21 04/16/24 cholecalciferol (vitamin D3) 25 25 mcg PO DAILY 11/28/22 04/16/24 mcg (1,000 unit) capsule hydroxyzine HCl 25 mg tablet 25 mg PO Q4H PRN 11/28/22 04/16/24 multivitamin (Daily Multi-Vitamin 1 tab PO DAILY 11/28/22 04/16/24 tablet) naproxen 375 mg tablet 375 mg PO BID PRN 11/28/22 04/16/24 propranolol 20 mg tablet 20 mg PO BID 11/28/22 04/16/24 simvastatin 20 mg tablet 20 mg PO DAILY 11/28/22 04/16/24 lutein 6 mg capsule 6 mg PO DAILY 05/25/23 04/16/24 vitamin A 2,400 mcg capsule 2,400 mcg PO DAILY 05/25/23 04/16/24 vitamin E 268 mg (400 unit) capsule 268 mg PO DAILY 05/25/23 04/16/24 rifaximin 550 mg tablet 550 mg PO BID #41 tabs 04/12/24 04/16/24 Previous Rx's ?Medication ?Instructions ?Recorded rifaximin 550 mg tablet 550 mg PO BID #41 tabs 04/12/24 Allergies Allergy/AdvReac Type Severity Reaction Status Date / Time doxycycline Allergy Severe systemic Verified 04/16/24 08:24 reaction/swelling verapamil Allergy Severe Anaphylaxis Verified 04/16/24 08:24 piperacillin (From Zosyn) Allergy Intermediate Anaphylaxis Verified 04/16/24 08:24 tazobactam (From Zosyn) Allergy Intermediate Anaphylaxis Verified 04/16/24 08:24 shellfish derived Allergy Unknown Anaphylaxis Verified 04/16/24 08:24 ciprofloxacin (From Cipro) Allergy Anaphylaxis Verified 04/16/24 08:24 metronidazole Allergy Anaphylaxis Verified 04/16/24 08:24 cortisone AdvReac Mild shakes Verified 04/16/24 08:24 OPIATES Allergy Intermediate PANIC Uncoded 04/12/24 06:43 ATTACKS General Stated Complaint: Abd Prob UMBERTO: 3 Review of Systems Constitutional Constitutional: Reports as per HPI, Denies chills, Denies fever(s) and Denies headache(s) ENT Ears, Nose, Mouth, and Throat: Denies headache(s) Cardiovascular Cardiovascular: Reports as per HPI, Denies chest pain and Denies dyspnea Respiratory Respiratory: Reports as per HPI, Denies cough and Denies dyspnea Gastrointestinal Gastrointestinal: Reports as per HPI Musculoskeletal Musculoskeletal: Reports as per HPI and Denies back pain Integumentary/Breasts Skin/Breast: Reports as per HPI and Denies rash Neurologic Neurologic: Reports as per HPI and Denies headache(s) Exam Const General: cooperative, healthy appearing, comfortable, no acute distress, well developed and anxious Nutritional Appearance: average body habitus and well nourished Orientation: alert and awake HENCT Head: normal to inspection Mouth: moist mucous membranes Resp Effort & Inspection: normal respiratory effort, able to speak in complete sentences and no respiratory distress Auscultation: clear to auscultation bilaterally, no rales, no rhonchi and no wheezes Cardio Rate: regular rate Rhythm: regular rhythm Heart Sounds: S1 normal and S2 normal GI Inspection: normal to inspection Palpation: soft, no hepatosplenomegaly, no guarding, no hernias, no masses, no pulsatile masses and nontender Percussion: normal to percussion Auscultation: normal bowel sounds Back/Spine/Pelvis Back: no CVA tenderness Skin General skin exam: no rashes or lesions noted Trauma: no lacerations or abrasions Neuro General: patient alert and patient awake Cognition: normal cognition Speech: speech normal Gait: normal gait Psych Appearance: grossly normal and well kempt Mental Status: mental status grossly normal Speech and Movement: speech and movement normal Mood: anxious mood Affect: anxious affect Attitude: cooperative Thought Process: perseverating Thought Content: normal Insight: fair Judgment: fair Course Vital Signs Vital signs: Vital Signs Temperature 36.8 C 04/16/24 08:16 Pulse 76 04/16/24 08:16 Respiratory Rate 17 04/16/24 08:16 Blood Pressure 196/89 H 04/16/24 08:16 Pulse Oximetry 100 04/16/24 08:16 Temperature 36.8 C 04/16/24 08:22 Temperature Source Oral 04/16/24 08:22 Pulse 76 04/16/24 08:22 Respiratory Rate 17 04/16/24 08:22 Respiratory Effort Normal 04/16/24 08:22 Blood Pressure 196/89 H 04/16/24 08:22 Blood Pressure Position Sitting 04/16/24 08:22 Pulse Oximetry 100 04/16/24 08:22 Oxygen Delivery Method Room Air 04/16/24 08:22 Oxygen Flow Rate 0 04/16/24 08:22 Pain Level 5 04/16/24 08:22 Medical Decision Making Patient is a pleasant 73-year-old female, accompanied by significant other, presenting today with chief complaint of inability to tolerate her antibiotics, lightheadedness, abdominal pain. Patient was seen here 4 days ago and diagnosed with diverticulitis. She was initially treated with rifaximin, however she reports she was not able to pick this up due to cost. Previous provider did prescribe a dose that she is tolerated well in the past for her diverticulitis. Patient transitioned to Augmentin. She reports that she did this for 3 days and then subsequently developed significant diarrhea, all nonbloody, which she stopped the antibiotics for. She reports that the pain along the left side which had been associated with diverticulitis, has improved. However, this morning after eating Serbian muffin, she states that she developed epigastric discomfort. Patient endorses significant anxiety. Question if she may have had some chest pain during this but this is not exertional and associated with p.o. intake. She reports she does have a history of heartburn but has not felt like this in the past. She reports that she had been on a clear liquid diet for few days but yesterday was able to eat some potatoes, fish and begin introducing more solid foods. She denies any exertional symptoms. No shortness of breath. She and her both endorse significant anxiety. This seems to [place] around the times where she is endorsing some presyncopal episodes. PSHx includes a cholecystectomy and hysterectomy. She reports it has been several years since her last colonoscopy, she reports that she developed diverticulitis after and has been hesitant to have another for this reason. On exam, patient appears profoundly anxious. While her blood pressure was initially quite high, her systolic was in the 120s when I came into the room but quickly escalated when we began discussing her current symptoms. Blood pressure did seem to wax and wanes over the timewise with the patient. Given the severity of her anxiety, I did offer her a IV cellulitic which the patient is agreeable to. Will give her p.o. in hopes that this will provide some longer lasting effects. Normal cardiac exam. 2+ distal pulses. Even when the patient developed some of her perceived presyncope and lightheadedness, her blood pressure and heart rate remained stable. However, during this time patient did begin to hyperventilate likely causing the symptoms she was experiencing. Her abdominal exam is benign. No peritoneal findings. No tenderness elicited with palpation. No aortic enlargement or pulsatile mass. She reports some mild discomfort in the left lower quadrant but states is significantly improved from when she had been seen here 4 days ago. She denies any change in her urinary symptoms, no CVA tenderness. Diarrhea she been experiencing has subsequently resolved. Primarily concern for anxiety. Will give anxiety lytic. Will also give Mylanta to help with her epigastric discomfort. As the patient reports that she did have some significant diarrhea over a few days, will assess labs for any electrolyte abnormalities. Did consider ACS although I find this highly unlikely as it is not exertionally based presyncope, it seems more anxiety driven. The epigastric pain, will also evaluate for any pancreatitis although again, the findings less likely. Hold off on any imaging at this time. Labs reviewed. No leukocytosis. Stable H&H. CMP significant for glucose of 141. Magnesium is slightly low at 1.6. Lipase within normal limits. Urine does show ketones which is unsurprising giving her dietary change with recent diagnosis of diverticulitis. She does have a small amount of blood which appears to be chronic for the patient dating back a few years. However, some of this could also be associate with the inflammation of the known diverticulitis. I did discuss with the patient, she was not aware that she had this historically and I did advise that she could discuss this further be retested. Reevaluated the patient. She appears much more comfortable. Her anxiety seems to be improved after the 0.5 mg of p.o. Ativan. We discussed her anxiety at length in the sense that it has been something she struggled with historically, particular around times of being ill. This would seems to have precipitated this once again and is probably was causing her to hyperventilate and feel presyncope. She is well versed in this and we did discuss box breathing to help slow things down. Will send her home with a small amount of Ativan in the event that this worsens again. She and I discussed continued care for her diverticulitis. She is not having any worsening of her left lower quadrant pain and did not have any evidence of complications on her prior CT scan, I feels appropriate to hold off on further antibiotic treatment at this time. Patient sounds that she has had difficulty with antibiotics historically and continues to have this in the form of diarrhea that is now resolved with the cessation of the antibiotic. I encourage close monitoring of her pain and prompt follow-up with primary care at the end of the week. Return precautions were given. We discussed advancing her diet, encourage probiotic. As her diarrhea stopped, I do not see need for stool sample and do not believe this is associated with C. difficile. Strict return precautions were discussed. All of the patient's questions and concerns were addressed and she is in agreement this plan. Spouse is quite supportive and agrees to help manage her anxiety. This documentation was generated using [employer]ation system, please disregard any oddities of phrase or misspellings. Quality:SDOH Health Related Social Needs: No Data to Display PFSH All Active Problems (Updated 04/16/24 @ 10:57 by EHSAN Whitaker) Blood in urine (Acute) Hypomagnesemia (Acute) Anxiety (Chronic) Abdominal pain (Acute) Diverticulitis of sigmoid colon (Acute) Acute diverticulitis (Acute) Status post vaginopexy (Acute) Trachelectomy, colpopexy, anterior and posterior colporrhaphy, urethral suspension with sling at [facility] 07/11/2023 Encounter for pessary maintenance (Acute) Vaginal vault prolapse after hysterectomy (Acute) Cystocele (Acute) Acute diverticulitis (Acute) Essential hypertension (Chronic) Chronic migraine (Chronic 07/07/14) Medical History Family history of colon cancer Hyperlipidemia Migraine headache with aura Osteoarthritis Hearing loss History of basal cell carcinoma Hypertension Anxiety Hip pain, right Knee pain, right History of diverticulosis Lesion of skin of face Presence of pessary Chest pain Hx of skin cancer, basal cell Surgical History History of tubal ligation S/P TKR (total knee replacement) S/P hysterectomy S/P cholecystectomy Family History Mother Colon cancer Social History Smoking/Tobacco Use Status: Former Tobacco Use Smoking risk assessment performed?: Yes Alcohol Intake: never Drug use: Never Substance use type: does not use Do you feel safe at home: Yes Do you feel safe in your relationship?: Yes History History 2 Para Hx # Term Pregnancies Multiple births Hx # Pregnancies Ectopic pregnancies AB induced Hx Number of Living Children AB spontaneous
[2024-04-16] MEDS: LORazepam 0.5 MG TAB PO (09:06)
[2024-04-16 09:29] LABS: Abs Immature Grans 0.03 10^3/uL (0.0-0.06); Absolute Basophil Count 0.01 10^3/uL (0.0-0.2); Absolute Eosinophil Count 0.74 10^3/uL (0.0-0.7); Absolute Lymphocyte Count 1.57 10^3/uL (1.2-3.4); Absolute Monocyte Count 0.34 10^3/uL (0.1-0.8); Absolute Neutrophil Count 2.71 10^3/uL (1.2-6.7); Basophils % 0.2 %; Eosinophils % 13.7 %; HCT 39.9 % (36.0-46.0); Immature Grans % 0.6 %; Lymphocytes % 29.1 %; MCH 31.3 pg (27.0-33.0); MCHC 35.1 % (32.0-36.0); MCV 89 fL (80-95); MPV 9.6 fL (8.0-11.0); Monocytes % 6.3 %; Neutrophils % 50.1 %; Platelet Count 258 10^3/uL (130-400); RBC 4.48 10^6/uL (3.93-5.22); RDW 11.5 % (11.7-14.6); RDW-SD 37.2 fL
[2024-04-16] MEDS: Mylanta Suspension 30 ML CUP PO (09:29)
[2024-04-16 09:38] LABS: Bilirubin Negative (Negative); Blood Trace-intact (Negative); Clarity Clear (Clear); Glucose Negative (Negative); Ketones 15 mg/dL (Negative); Leukocyte Esterase Negative (Negative); Nitrite Negative (Negative); Specific Gravity 1.015 (1.005-1.025); Urobilinogen 0.2 mg/dL (Up to 0.2)
[2024-04-16 09:44] LABS: Bacteria Rare HPF (Negative); C & S Indicated? No; Casts Negative LPF (Negative); Crystals Negative HPF (Negative); Epithelial Cells Rare HPF (Negative); Mucus Negative (Negative); WBC 0-2 HPF (0-5)
[2024-04-16 09:45] LABS: Lipase 37 U/L (16-77)
[2024-04-16 09:47] LABS: ALT 36 U/L (14-59); AST 34 U/L (15-37); Albumin 3.4 g/dL (3.4-5.0); Alkaline Phosphatase 79 U/L (46-116); Anion Gap 7.6 mmol/L (3-11); BUN 8 mg/dL (7-18); Bilirubin, Total 0.57 mg/dL (0.2-1.0); CO2 29.4 mmol/L (21.0-32.0); Calcium 9.3 mg/dL (8.5-10.1); Chloride 101 mmol/L (98-107); Estimated GFR 59.86 (mL/min/1.73m2); Glucose 141 mg/dL (74-106); Magnesium 1.6 mg/dL (1.8-2.4); Potassium 3.1 mmol/L (3.5-5.1); Sodium 138 mmol/L (136-145); Total Protein 7.1 g/dL (6.4-8.2); Troponin I 7 ng/L (<or=51)
[2024-04-16] MEDS: LORazepam 0.5 MG TAB 1.5 MG PO (11:15)
[2024-04-16 11:18] VITALS: BP 172/80; PULSE 76; RESP 17; TEMP 36.8; O2SAT 100
--- NOTE | 2024-04-17 11:02 | NUR.NOTE ---
Accessed Chart for Prior authorization for Xifaxan. Faxed to PCP.
== END 2024-04-16 11:26 | disposition home or self-care (01) ==
PROVIDERS: Emergency Provider Physician Assistant; PCP Nurse Practitioner Family
DX: R10.9 Unspecified abdominal pain (principal); R41.9 Unspecified symptoms and signs involving cognitive functions and awareness; E83.42 Hypomagnesemia; I10 Essential (primary) hypertension
CPT/HCPCS: 36415; 80053; 83690; 93005; 99284; 81003; 81015; 83735; 84484; 85025; 93010; 99283

== ENCOUNTER 2024-04-26 15:33 | Observation (INO) | payer MEDICARE, SELFPAY ==
[2024-04-26] VITALS (68 sets, daily range): BP systolic 145–184; BP diastolic 61–103; PULSE 55–80; RESP 10–22; TEMP 36.2–36.5; O2SAT 94–100
--- NOTE | 2024-04-26 15:48 | W.ED.GENAD ---
Discharge Plan Disposition Patient Disposition: Admit to [facility] Condition: Stable Discharge Details Chief Complaint: Abd Prob Clinical Impression: Diverticulitis of sigmoid colon Primary Care Provider: Dolly Albert ED Provider: Marybel Cheung Home Meds and New Rx's Prescriptions: No Action simvastatin 20 mg tablet 20 mg PO DAILY propranolol 20 mg tablet 20 mg PO BID naproxen 375 mg tablet 375 mg PO BID PRN hydroxyzine HCl 25 mg tablet 25 mg PO Q4H PRN multivitamin [Daily Multi-Vitamin] Tablet 1 tab PO DAILY cholecalciferol (vitamin D3) 25 mcg (1,000 unit) capsule 25 mcg PO DAILY ascorbic acid (vitamin C) 1,000 MG tablet 1,000 mg PO DAILY Lactobacillus acidophilus 1 MG tablet 1 cap PO DAILY acetaminophen [Tylenol] 325 MG tablet 1 tab PO PRN PRN epinephrine 0.3 mg/0.3 mL auto-injector 0.3 mg subcut DIRECTED PRN hydrochlorothiazide 12.5 mg tablet 12.5 mg PO DAILY lutein 6 mg capsule 6 mg PO DAILY Rx Instructions: give with meal/snack vitamin E 268 mg (400 unit) capsule 268 mg PO DAILY vitamin A 2,400 mcg capsule 2,400 mcg PO DAILY rifaximin 550 mg tablet 550 mg PO BID Qty: 41 0RF HPI General Mode of arrival: ambulatory. Date/Time Provider Initiated Documentation: 04/26/24 15:48. Limitations to Documentation: no limitations. Information obtained by: patient, family and old records reviewed. HPI Narrative: HPI: This is a 73-year-old female patient with a past medical history significant for diverticulosis with multiple episodes of diverticulitis, hypertension, migraine, who is status post hysterectomy, cholecystectomy, and vaginopexy, who is presenting for reevaluation of worsening left lower quadrant tenderness in the setting of a recent diagnosis of diverticulitis. The patient was diagnosed by CT with uncomplicated sigmoid diverticulitis on 04/12/2024. Given a history of numerous anaphylactic reactions to medications including Zosyn, ciprofloxacin, Flagyl, and doxycycline, she was attempted to be started on rifaximin, but her insurance denied the claim. For that reason she was started on Augmentin. She reports that she took 2 days worth of the Augmentin, and unfortunately had diarrhea that was so severe that she had to stop. She reports that she was reevaluated and her pain was improving, and the decision was made to trial conservative management without antibiotic therapy. She states that her diarrhea has resolved, but she had worsening of her pain over the last several days, prompting her representation to care. The patient reports nausea without vomiting, does not believe she has had a fever or chills. She has been attempting to avoid high-fiber/residue foods. She states that eating and drinking, even water, does make her pain worse. Of note, I was able to review her discharge summary from an admission in 2020, and note that they did have success with cefpodoxime and rifaximin as her antibiotic regimen given her numerous allergies. Exam: Gen: Awake and alert, in no apparent distress HEENT: Non-icteric sclera Neck: Supple Lungs: No apparent respiratory distress, normal respiratory effort. CV: Appears well perfused, Strong distal pulses Abdomen: Non-distended, soft, tender to palpation in the left lower quadrant without rigidity, rebound, or guarding MSK: Moves 4 extremities without apparent limitation in ROM Skin: Visualized skin without rashes, cyanosis. Neuro: Normal Gait, no obvious focal deficits or facial asymmetry. Speaks in full, clear sentences. Psych: Appropriate for situation. MDM: This is a 73-year-old female patient presenting for evaluation of worsening symptoms in the setting of a recent diagnosis of sigmoid diverticulitis. Under treatment of diverticulitis was certainly considered given her short duration of antibiotic use, I also considered complications including abscess, microperforation, etc. Considered bowel obstruction given her numerous abdominal surgeries. I considered metabolic and electrolyte derangements, kidney injuries, and less likely etiologies of the patient's symptoms include mesenteric ischemia, pancreatitis, appendicitis, hepatitis, choledocholithiasis, gastroenteritis. No urinary symptoms to significantly increase my concern for UTI, pyelonephritis, nephrolithiasis. Considered infectious diarrheas including C. difficile, though the patient's diarrhea has reassuringly resolved and she did not take an extended course of antibiotics which would put her at significant risk for this pathogen. We will obtain laboratory studies to include CBC, CMP, lipase, lactate, and will repeat a CT abdomen pelvis to better characterize any abnormalities. Given the worsening of symptoms with conservative management without antibiotics I do feel that this patient would warrant treatment with antibiotics for diverticulitis at this point. ED Course: I independently interpreted the laboratory studies, which show no significant leukocytosis, anemia, or thrombocytopenia. The chemistry panel is without evidence of electrolyte abnormality other than a mild hypokalemia to 3.1 which has been noted on prior laboratory evaluations, with no evidence of kidney dysfunction, or liver injury. Lactate and lipase are low. Independently interpreted the patient's CT scan, which redemonstrates diverticulitis that is actually improved in severity compared to priors, with no evidence of complication such as microperforation or abscess. Of note, the patient did feel slightly jittery after IV contrast, which resolved spontaneously without intervention. No evidence for allergic or anaphylactic reaction. On reevaluation the patient remains with a benign abdominal examination, and is quite apprehensive about trialing antibiotics in the outpatient environment given her history of frequent reactions. I do feel that given her worsening of pain with conservative management that she would benefit from potential antibiotics, though certainly she has been improving off of antibiotics and has the potential to continue doing so. Ultimately, given the complicated medical history and allergy history, we have elected to admit this patient to the hospitalist service for observation and ongoing workup and management of her diverticulitis. While under my care the patient remained hemodynamically appropriate, and she was transferred from our department without incident. Marybel Cheung MD Related Data Home Medications ?Medication ?Instructions ?Recorded ?Confirmed Lactobacillus acidophilus 1 mg 1 cap PO DAILY 04/29/14 04/26/24 (100 million cell) tablet ascorbic acid (vitamin C) 1,000 mg 1,000 mg PO DAILY 04/29/14 04/26/24 tablet acetaminophen 325 mg tablet 1 tab PO PRN PRN 06/25/14 04/26/24 (Tylenol) epinephrine 0.3 mg/0.3 mL 0.3 mg subcut DIRECTED PRN 02/14/21 04/26/24 injection, auto-injector hydrochlorothiazide 12.5 mg tablet 12.5 mg PO DAILY 02/14/21 04/26/24 cholecalciferol (vitamin D3) 25 25 mcg PO DAILY 11/28/22 04/26/24 mcg (1,000 unit) capsule hydroxyzine HCl 25 mg tablet 25 mg PO Q4H PRN 11/28/22 04/26/24 multivitamin (Daily Multi-Vitamin 1 tab PO DAILY 11/28/22 04/26/24 tablet) naproxen 375 mg tablet 375 mg PO BID PRN 11/28/22 04/26/24 propranolol 20 mg tablet 20 mg PO BID 11/28/22 04/26/24 simvastatin 20 mg tablet 20 mg PO DAILY 11/28/22 04/26/24 lutein 6 mg capsule 6 mg PO DAILY 05/25/23 04/26/24 vitamin A 2,400 mcg capsule 2,400 mcg PO DAILY 05/25/23 04/26/24 vitamin E 268 mg (400 unit) capsule 268 mg PO DAILY 05/25/23 04/26/24 rifaximin 550 mg tablet 550 mg PO BID #41 tabs 04/12/24 04/26/24 Previous Rx's ?Medication ?Instructions ?Recorded rifaximin 550 mg tablet 550 mg PO BID #41 tabs 04/12/24 Allergies Allergy/AdvReac Type Severity Reaction Status Date / Time doxycycline Allergy Severe systemic Verified 04/26/24 15:38 reaction/swelling verapamil Allergy Severe Anaphylaxis Verified 04/26/24 15:38 piperacillin (From Zosyn) Allergy Intermediate Anaphylaxis Verified 04/26/24 15:38 tazobactam (From Zosyn) Allergy Intermediate Anaphylaxis Verified 04/26/24 15:38 shellfish derived Allergy Unknown Anaphylaxis Verified 04/26/24 15:38 ciprofloxacin (From Cipro) Allergy Anaphylaxis Verified 04/26/24 15:38 metronidazole Allergy Anaphylaxis Verified 04/26/24 15:38 cortisone AdvReac Mild shakes Verified 04/26/24 15:38 OPIATES Allergy Intermediate PANIC Uncoded 04/26/24 15:38 ATTACKS General Stated Complaint: Abd Prob UMBERTO: 3 Course Vital Signs Vital signs: Vital Signs Temperature 36.5 C 04/26/24 15:35 Pulse 80 04/26/24 15:35 Respiratory Rate 18 04/26/24 15:35 Blood Pressure 175/96 H 04/26/24 15:35 Pulse Oximetry 97 04/26/24 15:35 Temperature 36.5 C 04/26/24 15:39 Temperature Source Oral 04/26/24 15:39 Pulse 80 04/26/24 15:39 Respiratory Rate 18 04/26/24 15:39 Respiratory Effort Normal, Non-Labored 04/26/24 15:40 Blood Pressure 175/96 H 04/26/24 15:39 Blood Pressure Position Sitting 04/26/24 15:39 Pulse Oximetry 97 04/26/24 15:39 Oxygen Delivery Method Room Air 04/26/24 15:39 Oxygen Flow Rate 0 04/26/24 15:39 Medical Decision Making Quality:SDOH Health Related Social Needs: No Data to Display PFSH All Active Problems (Updated 04/26/24 @ 18:24 by Marybel Cheung MD) Blood in urine (Acute) Hypomagnesemia (Acute) Anxiety (Chronic) Abdominal pain (Acute) Diverticulitis of sigmoid colon (Acute) Acute diverticulitis (Acute) Status post vaginopexy (Acute) Trachelectomy, colpopexy, anterior and posterior colporrhaphy, urethral suspension with sling at [facility] 07/11/2023 Encounter for pessary maintenance (Acute) Vaginal vault prolapse after hysterectomy (Acute) Cystocele (Acute) Acute diverticulitis (Acute) Essential hypertension (Chronic) Chronic migraine (Chronic 07/07/14) Medical History Family history of colon cancer Hyperlipidemia Migraine headache with aura Osteoarthritis Hearing loss History of basal cell carcinoma Hypertension Anxiety Hip pain, right Knee pain, right History of diverticulosis Lesion of skin of face Presence of pessary Chest pain Hx of skin cancer, basal cell Surgical History History of tubal ligation S/P TKR (total knee replacement) S/P hysterectomy S/P cholecystectomy Family History Mother Colon cancer Social History Smoking/Tobacco Use Status: Former Tobacco Use Smoking risk assessment performed?: Yes Alcohol Intake: never Drug use: Never Substance use type: does not use Do you feel safe at home: Yes Do you feel safe in your relationship?: Yes History History 2 Para Hx # Term Pregnancies Multiple births Hx # Pregnancies Ectopic pregnancies AB induced Hx Number of Living Children AB spontaneous
[2024-04-26 16:06] LABS: Lactate 1.2 mmol/L (0.6-1.4)
[2024-04-26 16:13] LABS: Abs Immature Grans 0.04 10^3/uL (0.0-0.06); Absolute Basophil Count 0.05 10^3/uL (0.0-0.2); Absolute Eosinophil Count 0.23 10^3/uL (0.0-0.7); Absolute Lymphocyte Count 2.94 10^3/uL (1.2-3.4); Absolute Monocyte Count 0.55 10^3/uL (0.1-0.8); Absolute Neutrophil Count 4.29 10^3/uL (1.2-6.7); Basophils % 0.6 %; Eosinophils % 2.8 %; HCT 42.9 % (36.0-46.0); Immature Grans % 0.5 %; Lymphocytes % 36.3 %; MCH 31.1 pg (27.0-33.0); MCV 89 fL (80-95); Monocytes % 6.8 %; Platelet Count 339 10^3/uL (130-400); RBC 4.82 10^6/uL (3.93-5.22); RDW 11.3 % (11.7-14.6); RDW-SD 36.1 fL
[2024-04-26 16:23] LABS: ALT 22 U/L (14-59); AST 20 U/L (15-37); Albumin 4.4 g/dL (3.4-5.0); Alkaline Phosphatase 64 U/L (46-116); Anion Gap 8.5 mmol/L (3-11); BUN 8 mg/dL (7-18); Bilirubin, Total 0.81 mg/dL (0.2-1.0); CO2 29.5 mmol/L (21.0-32.0); CREATININE 0.9 mg/dL (0.55-1.02); Calcium 9.3 mg/dL (8.5-10.1); Chloride 94 mmol/L (98-107); Estimated GFR 67.92 (mL/min/1.73m2); Glucose 97 mg/dL (74-106); Lipase 26 U/L (<78); Magnesium 1.7 mg/dL (1.8-2.4); Potassium 3.1 mmol/L (3.5-5.1); Sodium 132 mmol/L (136-145); Total Protein 8.1 g/dL (6.4-8.2)
[2024-04-26] MEDS: ACETAMINOPHEN 650 MG/65 ML BAG 260 MG IVPB (16:28)
[2024-04-26] MEDS: Omnipaque 350 MG/ML 100 ML BTL 75 ML IJ (17:22)
[2024-04-26] MEDS: Normal Saline - Diluent 50 ML VIAL IJ (17:23)
--- NOTE | 2024-04-26 17:24 | DI.CT_ITS ---
Exam(s) CT ABDOMEN PELVIS W EXAM: CT ABDOMEN PELVIS W CLINICAL HISTORY: Recent diverticulitis, worsening pain. TECHNIQUE: Imaging Protocol: Axial computed tomography images with coronal and sagittal reformatted images were created and reviewed CONTRAST MATERIAL: Intravenous: Omnipaque-350: 75cc Oral: None COMPARISON: CT CT ABDOMEN PELVIS W from 04/12/2024 FINDINGS: VISUALIZED LUNG BASES: No nodules nor pleural effusions evident. ABDOMEN: There is no ascites. LIVER: Again noted is a subcapsular hemangioma in the right hepatic lobe, unchanged. There is also a smaller subcapsular lesion in the upper aspect of the right upper lobe measuring approximately 0.5 c m and either cyst or benign hemangioma. In addition, there is a subcapsular cyst in the peripheral a spect of the left hepatic lobe again noted measuring 1 cm. No significant dilatation of intrahepatic ducts. GALLBLADDER/BILIARY: The gallbladder is again noted to be surgically absent. CBD is not dilated. PANCREAS: No evidence of pancreatic mass nor dilatation of the pancreatic duct. SPLEEN: Spleen is not enlarged. No obvious intrasplenic lesions. Splenic and portal veins are paten t. ADRENALS: There are no significant adrenal masses. KIDNEYS:No cysts evident. No solid renal masses. No calculi nor hydronephrosis.. ABDOMINAL AORTA: Abdominal aorta is not enlarged. LYMPH NODES:There is no retroperitoneal nor paraaortic adenopathy. ABDOMINAL WALL: No evidence of significant anterior abdominal wall nor inguinal hernia. GI: Previously described findings of acute diverticulitis in the lower sigmoid have significantly imp roved when compared to 04/12/2024 CT scan. There is less fat streaking and no free fluid at this nghia e. No evidence of abscess. There is no gas within the portal venous system. No evidence of intra h epatic abscess PELVIS: GI: No evidence of appendicitis. LYMPH NODES: There is no intrapelvic nor inguinal adenopathy. REPRODUCTIVE: Uterus is again noted to be surgically absent. No abnormal adnexal masses nor free flu id in the pelvis. URINARY BLADDER: No calculi nor obvious masses evident OSSEOUS: No fractures and no significant osseous lesions. There is 8 mm anterolisthesis L4 upon L5 again noted, this related to degenerative changes in the fac et joints. There are no pars defects. There is mild disc space narrowing at this level again noted. IMPRESSION: 1. Compared to the prior CT scan of 04/12/2024 there has been significant improvement in the appearan ce of the diverticulitis in the mid-lower sigmoid. There is significantly less perisigmoid fat strea ben on the present study and there is no evidence of at ascites, abscess, free air, gas in the mao l venous system nor intrahepatic abscess. 2. Cysts and hemangiomas again noted in the liver, unchanged 3. Previous cholecystectomy and hysterectomy. No evidence of bowel obstruction. Report called by myself to ER provider 04/26/2024 at 5:44 p.m. RADIATION DOSE DELIVERED: 285.49mGy.cm Total DLP DATA REPOSITORY: All CT scans at this facility are submitted to the National Radiology Data Registry (NRDR) Dose Index Registry (DIR) with the [employer] ([employer]). RADIATION OPTIMIZATION: All CT scans at this facility use at least one of these dose optimization te chniques: automated exposure control; mA and/or kV adjustment per patient size (includes targeted exa ms where dose is matched to clinical indication); or iterative reconstruction.
--- NOTE | 2024-04-26 18:32 | W.PM.HP.N ---
Date of service: 04/26/24 Time of Service: 18:32 Assessment and Plan Assessment and plan (1) Acute diverticulitis: Status: Acute Assessment and plan: will add iv fluid and rifaximin. monitor for improvement and advance diet as tolerated (2) Essential hypertension: Status: Chronic Assessment and plan: cw medical management (3) Chronic migraine: Status: Chronic History of Present Illness History of Present Illness Chief Complaint: Abdominal pain Narrative: 73-year-old female with chronic diverticulitis presents to the ED on 04/16/2024 with signs and symptoms consistent with diverticulitis and was treated with Augmentin. Unfortunately she developed significant diarrhea and came back to the ED today for further evaluation and treatment. Patient states that her abdominal pain continues to get worse. Review of her CT scan indicates improvement but symptomatically she says she is worse. In reviewing all data she had been seen here approximately 2 years ago and started on rifaximin which she tolerated well. This was attempted to be given in the outpatient setting by her insurance did not approve. Review of Systems All systems reviewed & are unremarkable except as noted in HPI and below PFSH All Active Problems (Updated 04/26/24 @ 18:24 by Marybel Cheung MD) Blood in urine (Acute) Hypomagnesemia (Acute) Anxiety (Chronic) Abdominal pain (Acute) Diverticulitis of sigmoid colon (Acute) Acute diverticulitis (Acute) Status post vaginopexy (Acute) Trachelectomy, colpopexy, anterior and posterior colporrhaphy, urethral suspension with sling at [facility] 07/11/2023 Encounter for pessary maintenance (Acute) Vaginal vault prolapse after hysterectomy (Acute) Cystocele (Acute) Acute diverticulitis (Acute) Essential hypertension (Chronic) Chronic migraine (Chronic 07/07/14) Medical History Family history of colon cancer Hyperlipidemia Migraine headache with aura Osteoarthritis Hearing loss History of basal cell carcinoma Hypertension Anxiety Hip pain, right Knee pain, right History of diverticulosis Lesion of skin of face Presence of pessary Chest pain Hx of skin cancer, basal cell Surgical History History of tubal ligation S/P TKR (total knee replacement) S/P hysterectomy S/P cholecystectomy Family History Mother Colon cancer Social History Smoking/Tobacco Use Status: Former Tobacco Use Smoking risk assessment performed?: Yes Alcohol Intake: never Drug use: Never Substance use type: does not use Do you feel safe at home: Yes Do you feel safe in your relationship?: Yes History History 2 Para Hx # Term Pregnancies Multiple births Hx # Pregnancies Ectopic pregnancies AB induced Hx Number of Living Children AB spontaneous Meds Allergies and Home Medications Allergies Allergy/AdvReac Type Severity Reaction Status Date / Time doxycycline Allergy Severe systemic Verified 04/26/24 15:38 reaction/swelling verapamil Allergy Severe Anaphylaxis Verified 04/26/24 15:38 piperacillin (From Zosyn) Allergy Intermediate Anaphylaxis Verified 04/26/24 15:38 tazobactam (From Zosyn) Allergy Intermediate Anaphylaxis Verified 04/26/24 15:38 shellfish derived Allergy Unknown Anaphylaxis Verified 04/26/24 15:38 ciprofloxacin (From Cipro) Allergy Anaphylaxis Verified 04/26/24 15:38 metronidazole Allergy Anaphylaxis Verified 04/26/24 15:38 cortisone AdvReac Mild shakes Verified 04/26/24 15:38 OPIATES Allergy Intermediate PANIC Uncoded 04/26/24 15:38 ATTACKS Home Medications ?Medication ?Instructions ?Recorded ?Confirmed ?Type Lactobacillus acidophilus 1 mg 1 cap PO DAILY 04/29/14 04/26/24 History (100 million cell) tablet ascorbic acid (vitamin C) 1,000 mg 1,000 mg PO DAILY 04/29/14 04/26/24 History tablet acetaminophen 325 mg tablet 1 tab PO PRN PRN 06/25/14 04/26/24 History (Tylenol) epinephrine 0.3 mg/0.3 mL 0.3 mg subcut DIRECTED PRN 02/14/21 04/26/24 History injection, auto-injector hydrochlorothiazide 12.5 mg tablet 12.5 mg PO DAILY 02/14/21 04/26/24 History cholecalciferol (vitamin D3) 25 25 mcg PO DAILY 11/28/22 04/26/24 History mcg (1,000 unit) capsule hydroxyzine HCl 25 mg tablet 25 mg PO Q4H PRN 11/28/22 04/26/24 History multivitamin (Daily Multi-Vitamin 1 tab PO DAILY 11/28/22 04/26/24 History tablet) naproxen 375 mg tablet 375 mg PO BID PRN 11/28/22 04/26/24 History propranolol 20 mg tablet 20 mg PO BID 11/28/22 04/26/24 History simvastatin 20 mg tablet 20 mg PO DAILY 11/28/22 04/26/24 History lutein 6 mg capsule 6 mg PO DAILY 05/25/23 04/26/24 History vitamin A 2,400 mcg capsule 2,400 mcg PO DAILY 05/25/23 04/26/24 History vitamin E 268 mg (400 unit) capsule 268 mg PO DAILY 05/25/23 04/26/24 History rifaximin 550 mg tablet 550 mg PO BID #41 tabs 04/12/24 04/26/24 Rx Exam Narrative Exam Narrative: HEENT: Normocephalic atraumatic mucous membranes moist oropharynx is clear Neck: No lymphadenopathy no JVD no thyroid megaly Cardiovascular: Regular rate and rhythm no murmur rubs gallops Lungs: Clear to auscultation with good air exchange Abdomen: Soft good bowel sounds tenderness palpation left lower quadrant Extremities: No sinus clubbing or edema Neurologic cranial nerves II through XII intact as tested Results Labs 04/26/24 15:52 04/26/24 15:52 Labs: Laboratory Results - last 24 hr 04/26/24 15:52 WBC 8.10 RBC 4.82 Hgb 15.0 Hct 42.9 MCV 89 MCH 31.1 MCHC 35.0 RDW 11.3 L Plt Count 339 MPV 10.0 Immature Gran % 0.5 Neutrophils % 53.0 Lymphocytes % 36.3 Monocytes % 6.8 Eosinophils % 2.8 Basophils % 0.6 Nucleated RBC % 0.0 Absolute Neutrophils 4.29 Absolute Lymphocytes 2.94 Absolute Monocytes 0.55 Absolute Eosinophils 0.23 Absolute Basophils 0.05 VBG Lactate 1.2 Sodium 132 L Potassium 3.1 L Chloride 94 L Carbon Dioxide 29.5 Anion Gap 8.5 BUN 8 Creatinine 0.9 Est GFR (CKD-EPI 2020) 67.92 Glucose 97 Calcium 9.3 Magnesium 1.7 L Total Bilirubin 0.81 AST 20 ALT 22 Alkaline Phosphatase 64 Total Protein 8.1 Albumin 4.4 Lipase 26 Last Vital Signs Temp 36.5 C 04/26/24 15:39 Pulse 62 04/26/24 18:00 Resp 13 04/26/24 18:00 BP 159/72 H 04/26/24 18:00 Pulse Ox 97 04/26/24 18:00 Time Spent Time spent with Patient: 40-54 minutes Time was spent: preparing to see the patient(eg.review tests), obtaining and/or reviewing separately otained hiistory, ordering medications,tests, procedures, referring, communicating with other health administrator health care facility, indepentently interpreting results, counseling the patient and care coordination
--- NOTE | 2024-04-26 21:31 | W.PC.ACHO ---
Registration Status: Primary Language: Preferred Language: ED Information & Data Chief Complaint Abd Prob 04/26/24 15:48 Triage Note Patient complaining of LLQ 04/26/24 15:35 pain and left lower back pain yesterday. Nausea after she ate yesterday Medical / Surgical History (Last Reviewed 04/12/24 @ 07:38 by Manav Gonzalez MD) Family history of colon cancer Hyperlipidemia Migraine headache with aura Osteoarthritis Hearing loss History of basal cell carcinoma Hypertension Anxiety Hip pain, right Knee pain, right History of diverticulosis Lesion of skin of face Presence of pessary Chest pain Hx of skin cancer, basal cell (Last Reviewed 04/12/24 @ 07:38 by Manav Gonzalez MD) History of tubal ligation S/P TKR (total knee replacement) S/P hysterectomy S/P cholecystectomy Most Recent Vital Signs Temperature 36.5 C 04/26/24 15:39 Temperature Source Oral 04/26/24 15:39 Pulse 57 L 04/26/24 21:00 Pulse 64 04/26/24 18:31 Respiratory Rate 11 L 04/26/24 21:01 Respiratory Effort Normal, Non-Labored 04/26/24 15:40 Blood Pressure 145/78 H 04/26/24 21:00 Blood Pressure Mean 120 04/26/24 18:31 Blood Pressure Position Sitting 04/26/24 15:39 Pulse Oximetry 96 04/26/24 21:01 Oxygen Delivery Method Room Air 04/26/24 15:39 Oxygen Flow Rate 0 04/26/24 15:39 Allergies doxycycline Allergy (Severe, Verified 04/26/24 15:38) systemic reaction/swelling verapamil Allergy (Severe, Verified 04/26/24 15:38) Anaphylaxis piperacillin (From Zosyn) Allergy (Intermediate, Verified 04/26/24 15:38) Anaphylaxis tazobactam (From Zosyn) Allergy (Intermediate, Verified 04/26/24 15:38) Anaphylaxis shellfish derived Allergy (Unknown, Verified 04/26/24 15:38) Anaphylaxis ciprofloxacin (From Cipro) Allergy (Verified 04/26/24 15:38) Anaphylaxis metronidazole Allergy (Verified 04/26/24 15:38) Anaphylaxis During inpatient stay cortisone Adverse Reaction (Mild, Verified 04/26/24 15:38) shakes OPIATES Allergy (Intermediate, Uncoded 04/26/24 15:38) PANIC ATTACKS Precautions Isolation Standard precaution 04/26/24 15:40 Active Medications Generic Name Dose Route Start Last Admin Trade Name Tesha PRN Reason Stop Dose Admin Iohexol 75 ml 04/26/24 17:30 04/26/24 17:22 Omnipaque 350 Mg/Ml 100 Ml Btl IJ 05/26/24 23:59 75 ml DIRECTED MALLORY Administration Sodium Chloride 50 ml 04/26/24 17:30 04/26/24 17:23 Normal Saline - Diluent 50 Ml Vial IJ 50 ml .FOR DI USE MALLORY Administration IV IV Catheter Type [Left Peripheral IV Antecubital] Diagnostics 04/26/24 Range/Units 15:52 WBC 8.10 (4.4-10.8) 10^3/uL RBC 4.82 (3.93-5.22) 10^6/uL Hgb 15.0 (11.2-15.7) g/dL Hct 42.9 (36.0-46.0) % MCV 89 (80-95) fL MCH 31.1 (27.0-33.0) pg MCHC 35.0 (32.0-36.0) % RDW 11.3 L (11.7-14.6) % Plt Count 339 (130-400) 10^3/uL MPV 10.0 (8.0-11.0) fL Immature Gran % 0.5 % Neutrophils % 53.0 % Lymphocytes % 36.3 % Monocytes % 6.8 % Eosinophils % 2.8 % Basophils % 0.6 % Nucleated RBC % 0.0 (0.0-0.3) % Absolute Neutrophils 4.29 (1.2-6.7) 10^3/uL Absolute Lymphocytes 2.94 (1.2-3.4) 10^3/uL Absolute Monocytes 0.55 (0.1-0.8) 10^3/uL Absolute Eosinophils 0.23 (0.0-0.7) 10^3/uL Absolute Basophils 0.05 (0.0-0.2) 10^3/uL VBG Lactate 1.2 (0.6-1.4) mmol/L Sodium 132 L (136-145) mmol/L Potassium 3.1 L (3.5-5.1) mmol/L Chloride 94 L (98-107) mmol/L Carbon Dioxide 29.5 (21.0-32.0) mmol/L Anion Gap 8.5 (3-11) mmol/L BUN 8 (7-18) mg/dL Creatinine 0.9 (0.55-1.02) mg/dL Est GFR (CKD-EPI 2020) 67.92 (mL/min/1.73m2) Glucose 97 (74-106) mg/dL Calcium 9.3 (8.5-10.1) mg/dL Magnesium 1.7 L (1.8-2.4) mg/dL Total Bilirubin 0.81 (0.2-1.0) mg/dL AST 20 (15-37) U/L ALT 22 (14-59) U/L Alkaline Phosphatase 64 (46-116) U/L Total Protein 8.1 (6.4-8.2) g/dL Albumin 4.4 (3.4-5.0) g/dL Lipase 26 (<78) U/L Intake and Output - 24 Hour Total 04/26/24 15:33 thru 04/26/24 20:10 Intake Total 65 Balance 65 Weight 53.977 kg Intake: IV 65 Falls Risk Assessment History of Falls No History 04/26/24 15:57 Contributing Factors No Factors 04/26/24 15:57 Ambulatory Aids Independent 04/26/24 15:57 Tubes/Lines None 04/26/24 15:57 Gait Evaluation No gait disturbance 04/26/24 15:57 Cognition No cognitive impairment 04/26/24 15:57 Fall Total Score 0 04/26/24 15:57 Level of Risk Standard/Low Risk 04/26/24 15:57 Problems (Last Reviewed 04/12/24 @ 07:38 by Manav Gonzalez MD) Acute diverticulitis (Acute) Essential hypertension (Chronic) Chronic migraine (Chronic 07/07/14) v v v v v v v v v Sending and/or Receiving Nurses: Please use comment section below to note any information pertinent to the patient hand-off not included above. Information / Comments: Pt admitted hx of diverticulitis, having flare currently. A+Ox4. LLQ pain. Allergies to many abx. Dx the 15th for diverticulitis on augmentin unable to tolerate due to diarrhea. VSS 36.5,80, 145/78. IV R AC. Ind. Report received from: Kannan TODD RN at 1435
[2024-04-26] MEDS: Normal Saline Flush 10 ML SYR IVP (21:46)
[2024-04-26] MEDS: Lactated Ringers 1,000 ML 150 ML IV (21:46)
[2024-04-26] MEDS: Acetaminophen 325 MG TAB PO (22:07)
[2024-04-26] MEDS: Rifaximin 550 MG TAB PO (22:07)
[2024-04-26] MEDS: Propranolol 20 MG TAB PO (22:27)
[2024-04-27 03:24] VITALS: BP 141/83; PULSE 63; RESP 14; TEMP 36.5; O2SAT 99
[2024-04-27] MEDS: Naproxen 375 MG TAB PO (03:25)
[2024-04-27] MEDS: Acetaminophen 325 MG TAB PO ×2 (03:25→20:58)
[2024-04-27 07:14] VITALS: BP 147/75; PULSE 64; RESP 15; TEMP 36.3; O2SAT 97
[2024-04-27 07:24] LABS: Abs Immature Grans 0.01 10^3/uL (0.0-0.06); Absolute Basophil Count 0.05 10^3/uL (0.0-0.2); Absolute Eosinophil Count 0.26 10^3/uL (0.0-0.7); Absolute Lymphocyte Count 1.85 10^3/uL (1.2-3.4); Absolute Monocyte Count 0.39 10^3/uL (0.1-0.8); Absolute Neutrophil Count 1.89 10^3/uL (1.2-6.7); Basophils % 1.1 %; Eosinophils % 5.8 %; HCT 36.3 % (36.0-46.0); HGB 12.7 g/dL (11.2-15.7); Immature Grans % 0.2 %; Lymphocytes % 41.6 %; MCH 30.9 pg (27.0-33.0); MCV 88 fL (80-95); Monocytes % 8.8 %; Neutrophils % 42.5 %; Platelet Count 242 10^3/uL (130-400); RBC 4.11 10^6/uL (3.93-5.22); RDW 11.3 % (11.7-14.6); RDW-SD 36.4 fL; WBC 4.45 10^3/uL (4.4-10.8)
[2024-04-27 07:40] LABS: ALT 14 U/L (14-59); AST 16 U/L (15-37); Albumin 3.4 g/dL (3.4-5.0); Alkaline Phosphatase 47 U/L (46-116); Anion Gap 8.7 mmol/L (3-11); BUN 6 mg/dL (7-18); Bilirubin, Total 0.66 mg/dL (0.2-1.0); CO2 29.3 mmol/L (21.0-32.0); CREATININE 0.8 mg/dL (0.55-1.02); Calcium 8.8 mg/dL (8.5-10.1); Chloride 101 mmol/L (98-107); Estimated GFR 78.24 (mL/min/1.73m2); Glucose 84 mg/dL (74-106); Potassium 3.3 mmol/L (3.5-5.1); Sodium 139 mmol/L (136-145); Total Protein 6.1 g/dL (6.4-8.2)
[2024-04-27] MEDS: Enoxaparin 40 MG/0.4 ML SYR SC (07:45)
[2024-04-27] MEDS: hydroCHLOROthiazide 12.5 MG TAB PO (07:46)
[2024-04-27] MEDS: Cholecalciferol (Vitamin D3) 1,000 UNIT TAB 1000 UNITS PO (07:47)
[2024-04-27] MEDS: Ascorbic Acid 500 MG TAB 1000 MG PO (07:47)
[2024-04-27] MEDS: Lactobacillus Acidophilus CAP 1 CAP PO (07:47)
[2024-04-27] MEDS: Propranolol 20 MG TAB PO ×2 (07:48→20:59)
[2024-04-27] MEDS: Multivitamin TAB 1 TAB PO (07:48)
[2024-04-27] MEDS: Rifaximin 550 MG TAB PO ×2 (07:48→20:59)
[2024-04-27] MEDS: Normal Saline Flush 10 ML SYR IVP ×2 (07:56→23:16)
--- NOTE | 2024-04-27 08:41 | PDOC.CMIN ---
Date of service: 04/27/24 Time of Service: 08:41 Care Management Initial Assmt Initial Assessment Reason for Hospitalization: diverticulitis Functional Status/Living Situation Patient Presentation: Karl was sitting up in bed visiting with her when CM met with her. She was pleasant in interaction and easily engaged with CM. Karl was admitted with diverticulitis. She stated that she is already feeling better and had thought she might be discharged later today. Karl had a similar bout of diverticulitis a couple of years ago and was successfully treated with Rifaximin. Unfortunately when she was give a prescription for it this time as an outpatient, her insurance would not cover the cost and it is >$2200/month. The provider sent a prescription to her pharmacy in however the pharmacy is closed until Monday. Cristiana live in a single family home in [facility].They have 2 adult children who live in [place] and one grandchild. 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 She is independent at baseline and does not receive any community services. Town of Residence: [facility] [facility] Resides with: Spouse (Steve Valenzuela- ) Significant Other/Family: Local Natural Supports: family Employment Status: Retired Instrumental Activities of Daily Living (ADLs): Independent Physical Functioning/Mobility Assistive Device: none Advance Directives Advance Directives: Do you have an Advance Directive: Y 10/14/21 12:12 AD On File at [facility]: Y 10/14/21 12:12 Date Asked 01/04/21 10/14/21 12:12 AD Date Reviewed 04/16/24 04/16/24 08:16 COLST On File at [facility] COLST Date Scanned Code Status Resuscitation Status Full Code Insurance Coverage/Financial Issues Insurance: Medicare [employer] Senior Supplement Care Team Visit Care Team Role Provider Type Dolly Albert Primary Care Provider NURSE PRACTITIONER Marybel Cheung MD Emergency Provider [facility] STAFF PHYSICIAN Lex Germain MD Admit Provider [facility] STAFF PHYSICIAN Attending Provider Discharge Potential Discharge Needs: PCP F/U Appt Anticipated Barriers to Discharge: None Identified Patient/Family Education Needs: Review discharge instructions, discuss Ask Me Three Transportation: Private vehicle Plan: Anticipate Karl will be discharged home with no new services when medically cleared. She will follow up with her PCP and plan of care and transport with family. CM will follow and continue to support discharge planning efforts. [facility] All Active Problems (Updated 04/26/24 @ 18:24 by Marybel Cheung MD) Blood in urine (Acute) Hypomagnesemia (Acute) Anxiety (Chronic) Abdominal pain (Acute) Diverticulitis of sigmoid colon (Acute) Acute diverticulitis (Acute) Status post vaginopexy (Acute) Trachelectomy, colpopexy, anterior and posterior colporrhaphy, urethral suspension with sling at [facility] 07/11/2023 Encounter for pessary maintenance (Acute) Vaginal vault prolapse after hysterectomy (Acute) Cystocele (Acute) Acute diverticulitis (Acute) Essential hypertension (Chronic) Chronic migraine (Chronic 07/07/14) Medical History Family history of colon cancer Hyperlipidemia Migraine headache with aura Osteoarthritis Hearing loss History of basal cell carcinoma Hypertension Anxiety Hip pain, right Knee pain, right History of diverticulosis Lesion of skin of face Presence of pessary Chest pain Hx of skin cancer, basal cell Surgical History History of tubal ligation S/P TKR (total knee replacement) S/P hysterectomy S/P cholecystectomy Family History Mother Colon cancer Social History Smoking/Tobacco Use Status: Former Tobacco Use Smoking risk assessment performed?: Yes Alcohol Intake: never Drug use: Never Substance use type: does not use Housing: house Do you feel safe at home: Yes Do you feel safe in your relationship?: Yes History History 2 Para Hx # Term Pregnancies Multiple births Hx # Pregnancies Ectopic pregnancies AB induced Hx Number of Living Children AB spontaneous SDOH(Care Management) Screening Will the Patient Participate in the Screening?: Yes Do you worry about having a steady place to live?: no In the past 12 months, have you had to go without electric, gas, oil or water in your home?: no Have you or anyone in your house had to go without enough food to eat?: no Has lack of transportation kept you from medical appointments or from doing things needed for daily living?: no Has anyone in your support network made you feel unsafe for any reason?: no
[2024-04-27 11:11] VITALS: BP 156/88; PULSE 61; RESP 15; TEMP 36.3; O2SAT 98
--- NOTE | 2024-04-27 13:08 | PGE_ITS ---
Date of Service Date of service: 04/27/24 Time of Service: 13:08 Assessment and Plan Assessment and plan (1) Acute diverticulitis: Status: Acute Assessment and plan: will add iv fluid and rifaximin. monitor for improvement and advance diet as tolerated Will increase appetite to full liquids (2) Essential hypertension: Status: Chronic Assessment and plan: cw medical management BP is at 147/67, cw hctz (3) Chronic migraine: Status: Chronic Subjective Subjective Interval history since last seen: Pt seen and examined in her room. POC d/w pt and SO as well as at MDR with bedside nurse. Attempting to find out about defrayment of costs of rifaximin Exam Narrative Exam Narrative: HEENT: Normocephalic atraumatic mucous membranes moist oropharynx is clear Neck: No lymphadenopathy no JVD no thyroid megaly Cardiovascular: Regular rate and rhythm no murmur rubs gallops Lungs: Clear to auscultation with good air exchange Abdomen: Soft good bowel sounds tenderness palpation left lower quadrant Extremities: No sinus clubbing or edema Neurologic cranial nerves II through XII intact as tested Objective Last Vital Signs Temp 36.3 C L 04/27/24 11:11 Pulse 61 04/27/24 11:11 Resp 15 04/27/24 11:11 BP 156/88 H 04/27/24 11:11 Pulse Ox 98 04/27/24 11:11 Laboratory Results - last 24 hr 04/26/24 04/27/24 15:52 06:30 WBC 8.10 4.45 RBC 4.82 4.11 Hgb 15.0 12.7 D Hct 42.9 36.3 MCV 89 88 MCH 31.1 30.9 MCHC 35.0 35.0 RDW 11.3 L 11.3 L Plt Count 339 242 MPV 10.0 10.0 Immature Gran % 0.5 0.2 Neutrophils % 53.0 42.5 Lymphocytes % 36.3 41.6 Monocytes % 6.8 8.8 Eosinophils % 2.8 5.8 Basophils % 0.6 1.1 Nucleated RBC % 0.0 0.0 Absolute Neutrophils 4.29 1.89 Absolute Lymphocytes 2.94 1.85 Absolute Monocytes 0.55 0.39 Absolute Eosinophils 0.23 0.26 Absolute Basophils 0.05 0.05 VBG Lactate 1.2 Sodium 132 L 139 Potassium 3.1 L 3.3 L Chloride 94 L 101 Carbon Dioxide 29.5 29.3 Anion Gap 8.5 8.7 BUN 8 6 L Creatinine 0.9 0.8 Est GFR (CKD-EPI 2020) 67.92 78.24 Glucose 97 84 Calcium 9.3 8.8 Magnesium 1.7 L Total Bilirubin 0.81 0.66 AST 20 16 ALT 22 14 Alkaline Phosphatase 64 47 Total Protein 8.1 6.1 L Albumin 4.4 3.4 Lipase 26 Time Spent with Patient Time Spent with Patient: 25-34 minutes Time was spent: preparing to see the patient(eg.review tests), obtaining and/or reviewing separately otained hiistory, ordering medications,tests, procedures, referring, communicating with other health child caregiver private home, indepentently interpreting results, counseling the patient and care coordination
--- NOTE | 2024-04-27 13:26 | W.PM.PROGNOT ---
Date of Service Date of service: 05/27/24 Time of Service: 17:41 Objective Last Vital Signs Temp 36.3 C L 04/27/24 11:11 Pulse 61 04/27/24 11:11 Resp 15 04/27/24 11:11 BP 156/88 H 04/27/24 11:11 Pulse Ox 98 04/27/24 11:11 Laboratory Results - last 24 hr 04/26/24 04/27/24 15:52 06:30 WBC 8.10 4.45 RBC 4.82 4.11 Hgb 15.0 12.7 D Hct 42.9 36.3 MCV 89 88 MCH 31.1 30.9 MCHC 35.0 35.0 RDW 11.3 L 11.3 L Plt Count 339 242 MPV 10.0 10.0 Immature Gran % 0.5 0.2 Neutrophils % 53.0 42.5 Lymphocytes % 36.3 41.6 Monocytes % 6.8 8.8 Eosinophils % 2.8 5.8 Basophils % 0.6 1.1 Nucleated RBC % 0.0 0.0 Absolute Neutrophils 4.29 1.89 Absolute Lymphocytes 2.94 1.85 Absolute Monocytes 0.55 0.39 Absolute Eosinophils 0.23 0.26 Absolute Basophils 0.05 0.05 VBG Lactate 1.2 Sodium 132 L 139 Potassium 3.1 L 3.3 L Chloride 94 L 101 Carbon Dioxide 29.5 29.3 Anion Gap 8.5 8.7 BUN 8 6 L Creatinine 0.9 0.8 Est GFR (CKD-EPI 2020) 67.92 78.24 Glucose 97 84 Calcium 9.3 8.8 Magnesium 1.7 L Total Bilirubin 0.81 0.66 AST 20 16 ALT 22 14 Alkaline Phosphatase 64 47 Total Protein 8.1 6.1 L Albumin 4.4 3.4 Lipase 26 Time Spent with Patient Time Spent with Patient: <25 minutes Time was spent: preparing to see the patient(eg.review tests), obtaining and/or reviewing separately otained hiistory, ordering medications,tests, procedures, referring, communicating with other health director of patient care, indepentently interpreting results, counseling the patient and care coordination
[2024-04-27 15:17] VITALS: BP 139/72; PULSE 59; RESP 12; TEMP 36; O2SAT 98
[2024-04-27 20:21] VITALS: BP 153/87; PULSE 63; RESP 12; TEMP 36.2; O2SAT 97
[2024-04-27] MEDS: hydrOXYzine HCL 25 MG TAB PO (20:59)
[2024-04-27 23:39] VITALS: BP 142/74; PULSE 55; TEMP 37; O2SAT 97
[2024-04-28 03:13] VITALS: BP 120/73; PULSE 57; RESP 15; TEMP 36.9; O2SAT 95
[2024-04-28 07:19] LABS: HCT 34.4 % (36.0-46.0); MCH 31.2 pg (27.0-33.0); MCHC 34.9 % (32.0-36.0); MCV 89 fL (80-95); Platelet Count 230 10^3/uL (130-400); RBC 3.85 10^6/uL (3.93-5.22); RDW 11.7 % (11.7-14.6); RDW-SD 37.8 fL; WBC 5.95 10^3/uL (4.4-10.8)
[2024-04-28 07:42] VITALS: BP 135/75; PULSE 60; RESP 16; TEMP 36.6; O2SAT 96
[2024-04-28 07:44] LABS: ALT 14 U/L (14-59); AST 16 U/L (15-37); Albumin 3.1 g/dL (3.4-5.0); Alkaline Phosphatase 42 U/L (46-116); Anion Gap 4.3 mmol/L (3-11); BUN 3 mg/dL (7-18); CO2 31.7 mmol/L (21.0-32.0); CREATININE 0.8 mg/dL (0.55-1.02); Calcium 8.7 mg/dL (8.5-10.1); Chloride 105 mmol/L (98-107); Estimated GFR 78.24 (mL/min/1.73m2); Glucose 86 mg/dL (74-106); Potassium 3.2 mmol/L (3.5-5.1); Sodium 141 mmol/L (136-145); Total Protein 5.8 g/dL (6.4-8.2)
[2024-04-28] MEDS: Ascorbic Acid 500 MG TAB 1000 MG PO (08:09)
[2024-04-28] MEDS: Lactobacillus Acidophilus CAP 1 CAP PO (08:09)
[2024-04-28] MEDS: Propranolol 20 MG TAB PO (08:10)
[2024-04-28] MEDS: hydroCHLOROthiazide 12.5 MG TAB PO (08:10)
[2024-04-28] MEDS: Cholecalciferol (Vitamin D3) 1,000 UNIT TAB 1000 UNITS PO (08:10)
[2024-04-28] MEDS: Normal Saline Flush 10 ML SYR IVP (08:11)
[2024-04-28] MEDS: Rifaximin 550 MG TAB PO (08:11)
[2024-04-28] MEDS: Multivitamin TAB 1 TAB PO (08:11)
--- NOTE | 2024-04-28 10:08 | W.PM.DS.N ---
Date of service: 04/28/24 Time of Service: 10:08 DS: Diagnosis Discharge Diagnosis (1) Acute diverticulitis: Status: Acute (2) Essential hypertension: Status: Chronic (3) Chronic migraine: Status: Chronic Discharge Plan Disposition Patient Disposition: Home Condition: Good Discharge Details Reason For Visit: Diverticulitis Admit Date/Time: 04/26/24 20:01 Admit Provider: Lex Germain Attending Provider: Lex Germain Primary Care Provider: Dolly Albert Hospital Course Hospital Course: 73-year-old female who was admitted to the hospital for a diverticulitis flare. Patient was seen 2 weeks ago in the ED and at that point was diagnosed with diverticulitis and started on antibiotics. Patient cannot tolerate her antibiotics and had worsening diarrhea nausea and vomiting. Came back into the ED where CT scan was done which showed improving diverticulitis signs. Patient was admitted for pain control as well as monitoring. Patient was started on rifaximin which is what she used approximately 2 years ago when she had the same issues. On April 28 I recommended discharge to which she readily agreed. At this point I do not believe she needs any more antibiotics as she is pain-free and has an improving imaging. I have sent a prescription over to her pharmacy for loperamide as she continues to have diarrhea. Recommend to follow-up with her PCP in 3 to 5 days for reevaluation as well as CMP. At the time of discharge her BUN/creatinine was 6/0.8 she did have mild hypokalemia which most likely is due to her diarrhea. Oxygen send a prescription over to her pharmacy for p.o. supplementation as well. Home Meds and New Rx's Prescriptions: New rifaximin 550 mg tablet 550 mg PO BID Qty: 14 0RF loperamide 2 mg Capsule 2 mg PO QLOOSE MDD 16mg PRN (Reason: loose stool) Qty: 14 0RF potassium chloride 10 mEq capsule, extended release 10 meq PO BID Qty: 14 0RF Continued simvastatin 20 mg tablet 20 mg PO DAILY propranolol 20 mg tablet 20 mg PO BID naproxen 375 mg tablet 375 mg PO BID PRN hydroxyzine HCl 25 mg tablet 25 mg PO Q4H PRN multivitamin [Daily Multi-Vitamin] Tablet 1 tab PO DAILY cholecalciferol (vitamin D3) 25 mcg (1,000 unit) capsule 25 mcg PO DAILY ascorbic acid (vitamin C) 1,000 MG tablet 1,000 mg PO DAILY Lactobacillus acidophilus 1 MG tablet 1 cap PO DAILY acetaminophen [Tylenol] 325 MG tablet 1 tab PO PRN PRN epinephrine 0.3 mg/0.3 mL auto-injector 0.3 mg subcut DIRECTED PRN hydrochlorothiazide 12.5 mg tablet 12.5 mg PO DAILY lutein 6 mg capsule 6 mg PO DAILY Rx Instructions: give with meal/snack vitamin E 268 mg (400 unit) capsule 268 mg PO DAILY vitamin A 2,400 mcg capsule 2,400 mcg PO DAILY Discontinued rifaximin 550 mg tablet 550 mg PO BID Qty: 41 0RF Discharge Instructions Referrals: Dolly lAbert [Primary Care Provider] - (f/u with PCP in 3-5 days for reevaluation and repeat CMP (lab work)) Activity:: Activity as Tolerated Equipment/Supplies:: No Equipment Needed Diet:: As Tolerated Discharge Orders Discharge Orders: Discharge Order (Routine); Ordered 04/28/24 Ordered By: Lex Germain DS: Summary Time Spent with Patient providing and/or coordinating discharge services: Greater than 30 minutes Status at Discharge Functional status at discharge: independent ambulation Overall status at discharge: patient is back to baseline Mental Status: mental status grossly normal Speech and Movement: speech and movement normal Mood: congruent mood Affect: normal affect Quality:SDOH Health Related Social Needs: No Data to Display Exam Narrative Exam Narrative: HEENT: Normocephalic atraumatic mucous membranes moist oropharynx is clear Neck: No lymphadenopathy no JVD no thyroid megaly Cardiovascular: Regular rate and rhythm no murmur rubs gallops Lungs: Clear to auscultation with good air exchange Abdomen: Soft good bowel sounds tenderness palpation left lower quadrant Extremities: No sinus clubbing or edema Neurologic cranial nerves II through XII intact as tested Psych Mental Status: mental status grossly normal Speech and Movement: speech and movement normal Mood: congruent mood Affect: normal affect DS: Data Vitals/I&O Vitals and I&O: Vital Signs Temperature 36.6 C 04/28/24 07:42 Temperature Source Tympanic 04/28/24 07:42 Pulse 60 04/28/24 07:42 Pulse Rhythm Regular 04/26/24 21:36 Pulse 64 04/26/24 18:31 Respiratory Rate 16 04/28/24 07:42 Respiratory Effort Normal 11/29/24 21:36 Respiratory Depth Normal 04/26/24 21:36 Respiratory Pattern Normal 04/26/24 21:36 Blood Pressure 135/75 04/28/24 07:42 Blood Pressure Mean 120 04/26/24 18:31 Blood Pressure Position Sitting 04/26/24 15:39 Pulse Oximetry 96 04/28/24 07:42 Oxygen Delivery Method High Flow Nasal Cannula 04/28/24 07:42 Oxygen Flow Rate 0 04/28/24 07:42 Pain Level 1 04/27/24 21:58 Comment RN Notified 04/27/24 20:21 Intake & Output 04/27/24 04/27/24 04/28/24 11:59 23:59 11:59 Intake Total 1660 / 2380 720 / 2380 Balance 1660 / 2380 720 / 2380 Weight 52.7 kg Intake: IV 1180 / 1180 Oral 480 / 1200 720 / 1200 Other: Urine Color Yellow Yellow Urine Appearance Clear Clear Urine Odor Normal Comment unknown amount voids independently Stool Size Moderate Stool Characteristics Soft Liquid Data Completed and Pending Labs on day of discharge: Labs from last 24 hours 04/28/24 06:19 WBC 5.95 RBC 3.85 L Hgb 12.0 Hct 34.4 L MCV 89 MCH 31.2 MCHC 34.9 RDW 11.7 Plt Count 230 MPV 10.0 Sodium 141 Potassium 3.2 L Chloride 105 Carbon Dioxide 31.7 Anion Gap 4.3 BUN 3 L Creatinine 0.8 Est GFR (CKD-EPI 2020) 78.24 Glucose 86 Calcium 8.7 Total Bilirubin 0.50 AST 16 ALT 14 Alkaline Phosphatase 42 L Total Protein 5.8 L Albumin 3.1 L PFSH All Active Problems (Updated 04/26/24 @ 18:24 by Marybel Cheung MD) Blood in urine (Acute) Hypomagnesemia (Acute) Anxiety (Chronic) Abdominal pain (Acute) Diverticulitis of sigmoid colon (Acute) Acute diverticulitis (Acute) Status post vaginopexy (Acute) Trachelectomy, colpopexy, anterior and posterior colporrhaphy, urethral suspension with sling at [facility] 07/11/2023 Encounter for pessary maintenance (Acute) Vaginal vault prolapse after hysterectomy (Acute) Cystocele (Acute) Acute diverticulitis (Acute) Essential hypertension (Chronic) Chronic migraine (Chronic 07/07/14) Medical History Family history of colon cancer Hyperlipidemia Migraine headache with aura Osteoarthritis Hearing loss History of basal cell carcinoma Hypertension Anxiety Hip pain, right Knee pain, right History of diverticulosis Lesion of skin of face Presence of pessary Chest pain Hx of skin cancer, basal cell Surgical History History of tubal ligation S/P TKR (total knee replacement) S/P hysterectomy S/P cholecystectomy Family History Mother Colon cancer Social History Smoking/Tobacco Use Status: Former Tobacco Use Smoking risk assessment performed?: Yes Alcohol Intake: never Drug use: Never Substance use type: does not use Housing: house Do you feel safe at home: Yes Do you feel safe in your relationship?: Yes History History 2 Para Hx # Term Pregnancies Multiple births Hx # Pregnancies Ectopic pregnancies AB induced Hx Number of Living Children AB spontaneous Time Spent with Patient Time Spent with Patient: 45-69 minutes Time was spent: preparing to see the patient(eg.review tests), obtaining and/or reviewing separately otained hiistory, ordering medications,tests, procedures, referring, communicating with other health personal care service provider, indepentently interpreting results, counseling the patient and care coordination
[2024-04-28] MEDS: Loperamide 2 MG CAP PO (10:44)
== END 2024-04-28 11:13 | disposition home or self-care (01) ==
LOC: ER 19:32 → MS 21:36
PROVIDERS: Admitting Provider Hospitalist; Emergency Provider Emergency Medicine; PCP Nurse Practitioner Family; Visit Provider Hospitalist
DX: K57.32 Diverticulitis of large intestine without perforation or abscess without bleeding; G43.709 Chronic migraine without aura, not intractable, without status migrainosus; I10 Essential (primary) hypertension; Z79.899 Other long term (current) drug therapy; F41.9 Anxiety disorder, unspecified; Z80.0 Family history of malignant neoplasm of digestive organs; Z87.891 Personal history of nicotine dependence; E87.6 Hypokalemia; E83.42 Hypomagnesemia
CPT/HCPCS: 00123; 36415; 80053; 83690; 85027; 96361; 96365; 96366; 96372; 99285; J1650; 74177; 83605; 83735; 85025; 99222; 99231; 99239; G0378; J0131; J3490

== ENCOUNTER → 2024-07-25 09:54 | Outpatient (BNVA) | payer MEDICARE, SELFPAY | PROVIDERS: PCP Nurse Practitioner Family; Referring Provider Nurse Practitioner Family; Visit Provider Physical Therapy Assistant | DX: Z12.11 Encounter for screening for malignant neoplasm of colon (principal); I10 Essential (primary) hypertension; Z80.0 Family history of malignant neoplasm of digestive organs ==

== ENCOUNTER 2024-08-05 08:27 | Day surgery (SDC) | payer MEDICARE, SELFPAY ==
--- NOTE | 2024-08-04 05:38 | W.PM.DSUDISC ---
Date of service: 08/05/24 Discharge Plan Disposition Patient Disposition: Home Condition: Good Discharge Details Reason For Visit: screening colonoscopy Attending Provider: Cory Valenzuela Primary Care Provider: Dolly Albert Home Meds and New Rx's Prescriptions: Continued simvastatin 20 mg tablet 20 mg PO DAILY propranolol 20 mg tablet 20 mg PO BID naproxen 375 mg tablet 375 mg PO BID PRN hydroxyzine HCl 25 mg tablet 25 mg PO Q4H PRN multivitamin [Daily Multi-Vitamin] Tablet 1 tab PO DAILY cholecalciferol (vitamin D3) 25 mcg (1,000 unit) capsule 25 mcg PO DAILY ascorbic acid (vitamin C) 1,000 MG tablet 1,000 mg PO DAILY Lactobacillus acidophilus 1 MG tablet 1 cap PO DAILY acetaminophen [Tylenol] 325 MG tablet 1 tab PO PRN PRN epinephrine 0.3 mg/0.3 mL auto-injector 0.3 mg subcut DIRECTED PRN hydrochlorothiazide 12.5 mg tablet 12.5 mg PO DAILY potassium chloride 10 mEq capsule, extended release 10 meq PO BID Qty: 14 0RF lutein 6 mg capsule 6 mg PO DAILY Rx Instructions: give with meal/snack vitamin E 268 mg (400 unit) capsule 268 mg PO DAILY vitamin A 2,400 mcg capsule 2,400 mcg PO DAILY Discontinued bisacodyl [Dulcolax (bisacodyl)] 5 mg tablet,delayed release (DR/EC) 5 mg PO ONCE Qty: 4 0RF Rx Instructions: Take per colonoscopy instructions provided by ordering providers office polyethylene glycol 3350 17 gram/dose powder 17 g PO ONCE Qty: 238 0RF Rx Instructions: Take per colonoscopy instructions provided by ordering providers office Discharge Instructions Instructions: Diverticulosis (DC) Additional Instructions: Karl Was very nice meeting you today, and I hope you are comfortable during the colonoscopy and make a nice recovery. Everything went very smoothly. Your prep was great and we could see everything fine. You have some diverticulosis. Diverticula are little weak spots in the muscular layer of the colon wall. This causes the inside lining to pooch or pocket outwards a bit. These can get inflamed during episodes that we refer to as diverticulitis. Hopefully, years will never bother you. Have attached some basic information here about typical approaches to diverticular disease, but generally my recommendation is to maintain a diet that is rich in fiber, stay well-hydrated, and avoid symptoms of constipation. With an otherwise negative screening colonoscopy, and based on your family history, I recommend a 5-year interval for your next test. 1. If tolerated, consume a soft, low fiber diet for 1-2 days. 2[address] Do not drive, drink alcohol, operate machinery, make critical decisions, or do activities that require coordination or balance for 24 hours. 3. Because air was put into your colon during the procedure, expelling air from your rectum (passing gas or farting) is normal. 4. You may not have a bowel movement for 1-3 days because of the colonoscopy prep. This is normal. 5. Go directly to the emergency room if you notice any of the following: Develop chills (warm to touch), or if you have a thermometer and your temperature is above 101 Difficulty breathing or difficultly swallowing Persistent vomiting Severe abdominal pain, other than gas cramps Severe chest pain Black, tarry stools Any bleeding ? exceeding one tablespoon 6. Call your physician if the site where your intravenous was started becomes red, swollen, painful, and warm to touch. 7. Your physician has reviewed your pre-procedure medications. Please continue to take those medications as previously ordered. You will be given specific information/education regarding any changes to your medications before leaving. Stand Alone Forms: Malina Real (DSU) Activity:: Activity as Tolerated Diet:: As Tolerated Discharge Orders Discharge Orders: Discharge Order (Routine); Ordered 08/04/24 Ordered By: Cory Valenzuela DS: Diagnosis Discharge Diagnosis (1) Encounter for screening colonoscopy: Status: Acute Asessment and Plan: Negative screening colonoscopy; based on family history recommend 5-year interval follow-up
--- NOTE | 2024-08-04 05:40 | W.COLOREPORT ---
Date of service: 08/05/24 Time of Service: 11:21 Colonoscopy Report Date of procedure: 08/05/24 Pre-op diagnosis general: screening colonoscopy Post-op diagnosis procedure note: other (Diverticulosis; otherwise negative screening colonoscopy) Procedure: colonoscopy Surgeon: Cory Valenzuela Anesthesia Type: General:No Airway Estimated blood loss (mL): 0 Pathology: none sent Complications: None Disposition: same day Indications: Karl is a 74 year old woman who needs her next screening colonoscopy Prep: Miralax/Dulcolax Procedure Start Time: 10:49 Procedure End Time: 11:05 Retraction Time: 10 Findings: Sigmoid diverticulosis Procedure Description: After the induction of anesthesia, and with the patient in left lateral decubitus position, I began by performing an external anorectal exam.? Perineum and skin were normal, as was the anal verge.? There was no evidence of external hemorrhoids.? Next, I performed a digital rectal exam.? I did not appreciate any abnormal findings.? Next, I advanced a colonoscope into the rectal vault.? I performed retroflexion.? This appeared normal.? Using insufflation, I then advanced the colonoscope beyond the rectal folds and into the sigmoid colon before advancing towards the cecum.? The quality of the prep was excellent.? The scope was noted to be in the cecum by identification of the ileocecal valve and appendiceal orifice.? I then began withdrawing the colonoscope using repeated irrigation as necessary for full evaluation of the colonic mucosa. There was sigmoid diverticulosis. once the scope was withdrawn to the level of the rectum, great care was taken to examine portions of the rectal folds.? Finally, the scope was withdrawn and the patient was brought to the same-day surgery recovery unit as the anesthetic wore off. ?The findings and instructions were shared with the patient prior to discharge. [place] Bowel Prep [place] Bowel Prep Right Colon: 3 Left Colon: 3 Transverse Colon: 3 Total Score: 9
[2024-08-05 08:57] VITALS: BP 150/97; PULSE 85; RESP 20; TEMP 36.4; O2SAT 100
[2024-08-05 09:04] VITALS: BP 150/97; PULSE 85; RESP 20; TEMP 36.4; O2SAT 100
[2024-08-05] MEDS: Lactated Ringers 1,000 ML 80 ML IV (09:14)
[2024-08-05 09:26] VITALS: BP 150/97; PULSE 85; RESP 20; TEMP 36.4; O2SAT 100
--- NOTE | 2024-08-05 10:36 | W.ANESPRE ---
General Info Date of Service Date Performed: 08/05/24 Height: 5 ft 1.75 in Weight: 50.5 kg Body Mass Index (BMI): 20.5 Surgical Procedure: Operation Date: 08/05/24 10:05 Proposed Procedure Side Surgeon rosa Valenzuela MD Meds Allergies and Home Medications Allergies Allergy/AdvReac Type Severity Reaction Status Date / Time amoxicillin (From Augmentin) Allergy Severe Anaphylaxis Verified 08/05/24 08:53 clavulanic acid (From Allergy Severe Anaphylaxis Verified 08/05/24 08:53 Augmentin) doxycycline Allergy Severe Anaphylaxis Verified 08/05/24 08:53 verapamil Allergy Severe Anaphylaxis Verified 08/05/24 08:53 piperacillin (From Zosyn) Allergy Intermediate Anaphylaxis Verified 08/05/24 08:53 tazobactam (From Zosyn) Allergy Intermediate Anaphylaxis Verified 08/05/24 08:53 shellfish derived Allergy Unknown Anaphylaxis Verified 08/05/24 08:53 ciprofloxacin (From Cipro) Allergy Diarrhea Verified 08/05/24 08:53 garcia burleson Allergy other Verified 08/05/24 08:53 metronidazole Allergy Diarrhea Verified 08/05/24 08:53 Penicillins Allergy Anaphylaxis Verified 08/05/24 08:53 sesame seed Allergy other Verified 08/05/24 08:53 cortisone AdvReac Mild severe Verified 08/05/24 08:53 diarrhea lisinopril AdvReac Other (See Verified 08/05/24 08:53 Comment) OPIATES Allergy Intermediate PANIC Uncoded 08/05/24 08:53 ATTACKS Home Medication ?Medication ?Instructions ?Recorded Lactobacillus acidophilus 1 mg 1 cap PO DAILY 04/29/14 (100 million cell) tablet ascorbic acid (vitamin C) 1,000 mg 1,000 mg PO DAILY 04/29/14 tablet acetaminophen 325 mg tablet 1 tab PO PRN PRN 06/25/14 (Tylenol) epinephrine 0.3 mg/0.3 mL 0.3 mg subcut DIRECTED PRN 02/14/21 injection, auto-injector hydrochlorothiazide 12.5 mg tablet 12.5 mg PO DAILY 02/14/21 cholecalciferol (vitamin D3) 25 25 mcg PO DAILY 11/28/22 mcg (1,000 unit) capsule hydroxyzine HCl 25 mg tablet 25 mg PO Q4H PRN 11/28/22 multivitamin (Daily Multi-Vitamin 1 tab PO DAILY 11/28/22 tablet) naproxen 375 mg tablet 375 mg PO BID PRN 11/28/22 propranolol 20 mg tablet 20 mg PO BID 11/28/22 simvastatin 20 mg tablet 20 mg PO DAILY 11/28/22 lutein 6 mg capsule 6 mg PO DAILY 05/25/23 vitamin A 2,400 mcg capsule 2,400 mcg PO DAILY 05/25/23 vitamin E 268 mg (400 unit) capsule 268 mg PO DAILY 05/25/23 potassium chloride 10 mEq 10 meq PO BID #14 caps 04/28/24 capsule,extended release Current Visit Medications: Current Medications Generic Name Dose Route Start Last Admin Trade Name Freq PRN Reason Stop Dose Admin Ringer's Solution 1,000 mls @ 80 mls/hr 08/05/24 06:00 08/05/24 09:14 IV 08/05/24 23:59 80 mls/hr INFUSION MALLORY Administration IV Miscellaneous Supplies 1 each 08/05/24 06:00 Iv Access IV 08/05/24 23:59 DIRECTED MALLORY Ondansetron HCl 4 mg 08/04/24 05:41 Ondansetron 4 Mg/2 Ml Vial IVP 09/03/24 05:40 Q4H PRN PRN Nausea / Vomiting Sodium Chloride 0 ml 08/05/24 06:00 Normal Saline Flush 10 Ml Syr IV 08/05/24 23:59 PRN PRN Sodium Chloride 0 ml 08/05/24 06:00 Normal Saline 10 Ml Vial IJ 08/05/24 23:59 DIRECTED PRN Sterile Water 0 ml 08/05/24 06:00 Water,Injection,Sterile 10 Ml Vial IJ 08/05/24 23:59 DIRECTED PRN PFSH Active Problems Active Problems: Problem Status Onset Code Encounter for screening colonoscopy Acute Z12.11 Blood in urine Acute R31.9 Hypomagnesemia Acute E83.42 Anxiety Chronic F41.9 Abdominal pain Acute R10.9 Diverticulitis of sigmoid colon Acute K57.32 Acute diverticulitis Acute K57.92 Status post vaginopexy Acute Z98.890 Encounter for pessary maintenance Acute Z46.89 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 N99.3 Cystocele Acute Acute diverticulitis Acute K57.92 Essential hypertension Chronic I10 Chronic migraine Chronic 07/07/14 G43.709 Medical History Medical History Family history of colon cancer mother Hyperlipidemia Migraine headache with aura Osteoarthritis Hearing loss History of basal cell carcinoma Hypertension Anxiety Hip pain, right Knee pain, right History of diverticulosis Lesion of skin of face Presence of pessary Chest pain Hx of skin cancer, basal cell Surgical History Surgical History History of colonoscopy (~09/17/15) [facility] recommend repeat 5-7 yrs. History of tubal ligation S/P TKR (total knee replacement) S/P hysterectomy S/P cholecystectomy Tobacco Smoking/Tobacco Use Status: Former Tobacco Use Alcohol Alcohol Intake: never Substance Use Substance use: Never Substance use type: does not use Prental History History 2 Para Hx # Term Pregnancies Multiple births Hx # Pregnancies Ectopic pregnancies AB induced Hx Number of Living Children AB spontaneous Vital Signs and Lab Results Vital Signs Most Recent Vital Signs in EMR: Most Recent Vital Signs Temp Pulse Resp BP Pulse Ox 36.4 C L 85 20 150/97 H 100 08/05/24 09:26 08/05/24 09:26 08/05/24 09:26 08/05/24 09:26 08/05/24 09:26 Lab Results Blood Type / Crossmatch: No Data to Display Complete Blood Count: No Data to Display Complete Metabolic Panel: No Data to Display Liver Function Panel: No Data to Display Coagulation Panel: No Data to Display Cardiac Panel: No Data to Display Arterial Blood Gas: No Data to Display Venous Blood Gas: No Data to Display Pancreas Panel: No Data to Display Thyroid Panel: No Data to Display Infectious Disease: No Data to Display Blood Cultures: No Data to Display Toxicology Panel: No Data to Display Imaging and Studies Imaging and Studies Study information below may be from another EMR and interpreted by another provider. Please see original notes in EMR for more complete details. EKG Summary: 04/16/24: Exam: Resting ECG Reason for Exam: presyncope Patient Location: E HR:62 bpm ECG Measurements Heart Rate 62 AXIS TN 160 P -5 QRSd 104 QRS 6 QT 409 T36 QTc 417 Conclusion Sinus rhythm...normal P axis, V-rate 60- 99 Nonspecific repolarization abnormalities...ST dep, T neg, 2-3 leads Anesthesia Assessment and Plan Anesthesia History Personal History: No History of Anesthesia Complications and PONV Family History: No Family History of Anesthesia Complications Exercise Tolerance Exercise Tolerance: Metabolic Equivalents>4 Pertinent Negatives Pertinent Negatives: No Major Cardiovascular Symptoms or Complaints and No Major Pulmonary Symptoms or Complaints Cardiac & Pulmonary Exam Cardiac Exam: Normal S1/S2 Heart Sounds Pulmonary Exam: Clear Bilateral Breath Sounds Implantable Cardiac Device Does patient have a Pacemaker or an ICD?: No Airway Exam Known Difficult Airway: No Mallampati Class: 2 Mouth Opening: Normal (> 3cm) Thyromental Distance: Greater than 3 cm Neck Range of Motion: Full ROM Neck Circumference: Normal Teeth Condition: Normal Dentition ASA Classification ASA Score: ASA 2 Emergency Case?: No NPO Status NPO Status: NPO Clears >2 hours, Solids >8 hours Anesthesia Plan Resuscitation Status: Full Code Anesthesia Technique: General Anesthesia Airway Planned: Natural Airway Monitors Used: Standard Monitors
[2024-08-05 10:37] VITALS: BMI 20.5
[2024-08-05 11:12] VITALS: BP 134/81; PULSE 64; RESP 16; TEMP 36.1; O2SAT 99
--- NOTE | 2024-08-05 11:13 | W.ANESPOSTOP ---
Postoperative Evaluation Date, Time and Location Date Performed: 08/05/24 Time Performed: 11:13 Patient Location: Day Surgery Unit Vital Signs Most Recent Imported Vital Signs: Most Recent Vital Signs Temp Pulse Resp BP Pulse Ox 36.4 C L 85 20 150/97 H 100 08/05/24 09:26 08/05/24 09:26 08/05/24 09:26 08/05/24 09:26 08/05/24 09:26 Pain Score Most Recent Pain Score: Most Recent Pain Score Pain Level 0 08/05/24 09:26 Assessment Mental Status: Awake (Alert & Oriented to Patient Baseline) Airway and Respiratory Function: Patent airway with normal (patient baseline) respiratory exam Cardiovascular Function: Hemodynamically Stable Hydration Status: Adequately Hydrated Nausea & Vomiting: No Nausea or Vomiting Pain: Pt. Denies Any Pain Peripheral Nerve Block: Patient did not receive a nerve block
[2024-08-05 11:34] VITALS: BP 133/88; PULSE 63; RESP 18; TEMP 36.5; O2SAT 100
== END 2024-08-05 12:00 | disposition home or self-care (01) ==
PROVIDERS: PCP Nurse Practitioner Family; Visit Provider Surgery
PROC: 0DJD8ZZ Inspection of Lower Intestinal Tract, Via Natural or Artificial Opening Endoscopic (ICD-10-PCS; CPT 45378; principal; 2024-08-05 10:00)
DX: Z12.11 Encounter for screening for malignant neoplasm of colon (principal); K57.30 Diverticulosis of large intestine without perforation or abscess without bleeding; Z80.8 Family history of malignant neoplasm of other organs or systems
CPT/HCPCS: G0105; J2003; J2704

== ENCOUNTER 2024-10-30 13:50 | Outpatient (REF) | payer MEDICARE, SELFPAY ==
[2024-10-30 15:53] LABS: ESR 1 mm/hr (0-30)
[2024-10-30 15:54] LABS: Abs Immature Grans 0.02 10^3/uL (0.0-0.06); Absolute Basophil Count 0.04 10^3/uL (0.0-0.2); Absolute Lymphocyte Count 2.04 10^3/uL (1.2-3.4); Absolute Monocyte Count 0.43 10^3/uL (0.1-0.8); Absolute Neutrophil Count 3.53 10^3/uL (1.2-6.7); Basophils % 0.6 %; Eosinophils % 12.9 %; HCT 42.9 % (36.0-46.0); HGB 15.2 g/dL (11.2-15.7); Immature Grans % 0.3 %; Lymphocytes % 29.3 %; MCH 30.9 pg (27.0-33.0); MCHC 35.4 % (32.0-36.0); MCV 87 fL (80-95); Monocytes % 6.2 %; Neutrophils % 50.7 %; Platelet Count 279 10^3/uL (130-400); RBC 4.92 10^6/uL (3.93-5.22); RDW 11.6 % (11.7-14.6); RDW-SD 37.1 fL; WBC 6.96 10^3/uL (4.4-10.8)
[2024-10-30 16:06] LABS: ALT 19 U/L (14-59); AST 20 U/L (15-37); Albumin 4.2 g/dL (3.4-5.0); Alkaline Phosphatase 46 U/L (46-116); Anion Gap 6.3 mmol/L (3-11); BUN 7 mg/dL (7-18); Bilirubin, Total 0.8 mg/dL (0.2-1.0); C-Reactive Protein < 0.50 mg/dL (<or=0.5); CO2 32.7 mmol/L (21.0-32.0); CREATININE 0.7 mg/dL (0.55-1.02); Calcium 9.7 mg/dL (8.5-10.1); Chloride 97 mmol/L (98-107); Estimated GFR 91.26 (mL/min/1.73m2); Glucose 97 mg/dL (74-106); Potassium 4.4 mmol/L (3.5-5.1); Sodium 136 mmol/L (136-145); Total Protein 7.1 g/dL (6.4-8.2)
== END 2024-10-30 13:51 | disposition home or self-care (01) ==
LOC: NCHCN 13:50
PROVIDERS: PCP Nurse Practitioner Family; Visit Provider Student in an Organized Health Care Education/Training Program
DX: R10.32 Left lower quadrant pain (principal)
CPT/HCPCS: 80053; 85652; 85025; 86140

== ENCOUNTER 2024-10-31 13:19 | Emergency (ER) | payer MEDICARE, SELFPAY ==
[2024-10-31 13:25] VITALS: BP 164/84; PULSE 97; RESP 20; TEMP 36.7; O2SAT 97
--- NOTE | 2024-10-31 13:45 | DI.CT_ITS ---
Exam(s) CT ABDOMEN PELVIS W EXAM: CT ABDOMEN PELVIS W CLINICAL HISTORY: LLQ tenderness; hx divertic. TECHNIQUE: Imaging Protocol: Axial computed tomography images with coronal and sagittal reformatted images were created and reviewed CONTRAST MATERIAL: Intravenous: Omnipaque-350 75cc Oral: None COMPARISON: CT CT ABDOMEN PELVIS W from 04/12/[address] ABDOMEN PELVIS W from 04/26/2024 FINDINGS: VISUALIZED LUNG BASES: No nodules nor pleural effusions evident. ABDOMEN: There is no ascites. LIVER: The previously described subcapsular hemangioma in the right hepatic lobe is again noted and a ppears unchanged in size. Other smaller cysts or hemangiomas also noted in the right lobe. There ar e no dilated intrahepatic ducts. GALLBLADDER/BILIARY: The gallbladder is again noted be surgically absent. CBD is not dilated. PANCREAS: No evidence of pancreatic mass nor dilatation of the pancreatic duct. SPLEEN: Spleen is not enlarged. No obvious intrasplenic lesions. Splenic and portal veins are paten t. ADRENALS: There are no significant adrenal masses. KIDNEYS:No cysts evident. No solid renal masses. No calculi nor hydronephrosis.. ABDOMINAL AORTA: Abdominal aorta is not enlarged. LYMPH NODES:There is no retroperitoneal nor paraaortic adenopathy. ABDOMINAL WALL: No evidence of significant anterior abdominal wall nor inguinal hernia. GI: There is no evidence of bowel obstruction, free air, nor abscess. PELVIS: GI: No evidence of appendicitis.There is sigmoid diverticulosis. There is a focal area in the sigmoi d which exhibits some mural edema may be consistent with diverticulitis there is this was not evident on the most recent scan of 04/26/2024. May indicate developing diverticulitis. The part of the sig moid below this level slightly to the right of center which was significantly involved on CT scan of 04/12/2024 appears unremarkable on today's study. LYMPH NODES: There is no intrapelvic nor inguinal adenopathy. REPRODUCTIVE: Uterus is surgically absent. There are no abnormal adnexal masses. URINARY BLADDER: No calculi nor obvious masses evident OSSEOUS: Degenerative anterolisthesis L4 upon L5 is again noted related to facet arthropathy. There are no pars defects at this level. IMPRESSION: 1. Subtle findings in the sigmoid which probably represent developing diverticulitis superimposed upo n an area of diverticulosis. 2. Previous cholecystectomy and hysterectomy again noted. No evidence of bowel obstruction. 3. Other findings as above. Report called by myself to ER provider 10/31/2024 at 3:50 p.m. RADIATION DOSE DELIVERED: 292.8mGy.cm Total DLP DATA REPOSITORY: All CT scans at this facility are submitted to the National Radiology Data Registry (NRDR) Dose Index Registry (DIR) with the [employer] ([employer]). RADIATION OPTIMIZATION: All CT scans at this facility use at least one of these dose optimization te chniques: automated exposure control; mA and/or kV adjustment per patient size (includes targeted exa ms where dose is matched to clinical indication); or iterative reconstruction.
--- NOTE | 2024-10-31 13:48 | W.ED.GENAD ---
Discharge Plan Disposition Patient Disposition: Home Condition: Stable Discharge Details Clinical Impression: Acute diverticulitis Primary Care Provider: Dolly Albert ED Provider: Lucien Blackwell Home Meds and New Rx's Prescriptions: New metronidazole 500 mg tablet 500 mg PO BID 7 Days Qty: 14 0RF levofloxacin 750 mg tablet 750 mg PO DAILY 7 Days Qty: 7 0RF Continued simvastatin 20 mg tablet 20 mg PO DAILY propranolol 20 mg tablet 20 mg PO BID naproxen 375 mg tablet 375 mg PO BID PRN hydroxyzine HCl 25 mg tablet 25 mg PO Q4H PRN multivitamin [Daily Multi-Vitamin] Tablet 1 tab PO DAILY cholecalciferol (vitamin D3) 25 mcg (1,000 unit) capsule 25 mcg PO DAILY ascorbic acid (vitamin C) 1,000 MG tablet 1,000 mg PO DAILY Lactobacillus acidophilus 1 MG tablet 1 cap PO DAILY acetaminophen [Tylenol] 325 MG tablet 1 tab PO PRN PRN epinephrine 0.3 mg/0.3 mL auto-injector 0.3 mg subcut DIRECTED PRN hydrochlorothiazide 12.5 mg tablet 12.5 mg PO DAILY lutein 6 mg capsule 6 mg PO DAILY Rx Instructions: give with meal/snack vitamin E 268 mg (400 unit) capsule 268 mg PO DAILY vitamin A 2,400 mcg capsule 2,400 mcg PO DAILY Discharge Instructions Instructions: Levofloxacin (Systemic), Metronidazole (Systemic), Diverticulitis Additional Instructions: You were seen in the emergency department for your acute diverticulitis, you have had this in the past, you have anaphylaxis to penicillin so we have difficulty selecting the regimen as you have some adverse reactions but not overt allergic reactions to the alternative antibiotics. Regardless of this we are going to try metronidazole and levofloxacin to treat your acute diverticulitis, please monitor your condition closely, try to stay well-hydrated and nourished, return for any severe increase in abdominal pain especially fever, complete constipation and lack of passing gas, completely liquid diarrhea or intractable nausea or vomiting, please read the literature on the antibiotics as they have some dosing specifics that may help with your adverse side effects like taking medicines certain with foods certain apart from other foods. Referrals: Dolly Albert [Primary Care Provider] - Discharge Data Discharge Date/Time-TO BE ENTERED AT DEPARTURE: 10/31/24 16:28 HPI General Date/Time Provider Initiated Documentation: 10/31/24 13:46. HPI Narrative: 74 year-old female presents to ED today by POV/ambulating with her with a chief complaint of generalized left lower abdominal pain and some left low back pain with onset 2 weeks ago, intermittent since then. Quality described as generalized aching pain, crampy, causing poor appetite, no radiation to chest pain, fever, shortness of breath, dysuria, hematuria, black or tarry or bloody stools, liquid diarrhea, headaches. Severity is described as 4/10. Palliating factors include nothing specific attempted. Provoking factors include nothing specific. Events leading up to the incident/Associated Symptoms: Patient has a history of diverticulitis. Patient not anticoagulated. Related Data Home Medications ?Medication ?Instructions ?Recorded ?Confirmed Lactobacillus acidophilus 1 mg 1 cap PO DAILY 04/29/14 10/31/24 (100 million cell) tablet ascorbic acid (vitamin C) 1,000 mg 1,000 mg PO DAILY 04/29/14 10/31/24 tablet acetaminophen 325 mg tablet 1 tab PO PRN PRN 06/25/14 10/31/24 (Tylenol) epinephrine 0.3 mg/0.3 mL 0.3 mg subcut DIRECTED PRN 02/14/21 10/31/24 injection, auto-injector hydrochlorothiazide 12.5 mg tablet 12.5 mg PO DAILY 02/14/21 10/31/24 cholecalciferol (vitamin D3) 25 25 mcg PO DAILY 11/28/22 10/31/24 mcg (1,000 unit) capsule hydroxyzine HCl 25 mg tablet 25 mg PO Q4H PRN 11/28/22 10/31/24 multivitamin (Daily Multi-Vitamin 1 tab PO DAILY 11/28/22 10/31/24 tablet) naproxen 375 mg tablet 375 mg PO BID PRN 11/28/22 10/31/24 propranolol 20 mg tablet 20 mg PO BID 11/28/22 10/31/24 simvastatin 20 mg tablet 20 mg PO DAILY 11/28/22 10/31/24 lutein 6 mg capsule 6 mg PO DAILY 05/25/23 10/31/24 vitamin A 2,400 mcg capsule 2,400 mcg PO DAILY 05/25/23 10/31/24 vitamin E 268 mg (400 unit) capsule 268 mg PO DAILY 05/25/23 10/31/24 levofloxacin 750 mg tablet 750 mg PO DAILY 7 days #7 tabs 10/31/24 metronidazole 500 mg tablet 500 mg PO BID 7 days #14 tabs 10/31/24 Previous Rx's ?Medication ?Instructions ?Recorded levofloxacin 750 mg tablet 750 mg PO DAILY 7 days #7 tabs 10/31/24 metronidazole 500 mg tablet 500 mg PO BID 7 days #14 tabs 10/31/24 Allergies Allergy/AdvReac Type Severity Reaction Status Date / Time amoxicillin (From Augmentin) Allergy Severe Anaphylaxis Verified 10/31/24 13:31 clavulanic acid (From Allergy Severe Anaphylaxis Verified 10/31/24 13:31 Augmentin) doxycycline Allergy Severe Anaphylaxis Verified 10/31/24 13:31 verapamil Allergy Severe Anaphylaxis Verified 10/31/24 13:31 piperacillin (From Zosyn) Allergy Intermediate Anaphylaxis Verified 10/31/24 13:31 tazobactam (From Zosyn) Allergy Intermediate Anaphylaxis Verified 10/31/24 13:31 shellfish derived Allergy Unknown Anaphylaxis Verified 10/31/24 13:31 ciprofloxacin (From Cipro) Allergy Diarrhea Verified 10/31/24 13:31 garcia burleson Allergy other Verified 10/31/24 13:31 metronidazole Allergy Diarrhea Verified 10/31/24 13:31 Penicillins Allergy Anaphylaxis Verified 10/31/24 13:31 sesame seed Allergy other Verified 10/31/24 13:31 cortisone AdvReac Mild severe Verified 10/31/24 13:31 diarrhea lisinopril AdvReac Other (See Verified 10/31/24 13:31 Comment) OPIATES Allergy Intermediate PANIC Uncoded 10/31/24 13:31 ATTACKS General Stated Complaint: Abd Prob UMBERTO: 3 Review of Systems All systems reviewed & are unremarkable except as noted in HPI and below Exam Narrative Exam Narrative: GENERAL APPEARANCE: Well-nourished, non-toxic, awake and alert, atraumatic, no acute distress. SKIN: Warm, pink, dry, intact, without rashes/lesions/ulcerations. HEAD: Normocephalic, atraumatic, normal hair distribution for gender/age. EYES: Normal conjunctiva, no exudates on lids/lashes. ENT: Nares patent, no circumoral cyanosis, no facial swelling NECK: Supple, trachea midline, painless cervical ROM. LUNGS/CHEST: Lungs CTA bilaterally-no rhonchi/rales/wheezes diffusely, non-labored respirations, normal A/P diameter, symmetrical expansion, no chest wall deformity HEART (CV/PV): Regular rate and rhythm without murmur, no peripheral edema, no JVD. ABDOMEN: Soft, non-distended, no guarding, LLQ tenderness without rebound tenderness, negative Rovsing's, no CVA tenderness to percussion bilaterally. MSK: Normal ROM, no swelling/deformity to bilateral UEs or LEs, moving all extremities without weakness, no cyanosis, spine midline without tenderness, normal curvature. NEURO: Mental Status AAOx4 - alert to person, place, time, events No facial droop, no forehead involvement. Motor: No focal weakness - strength 5/5 in bilateral UEs and LEs, proximal and distal, symmetric. Sensory: sensation intact to light touch globally. Gait normal: patient ambulated without ataxia into ED room. PSYCH: euthymic, cooperative, pleasant, appropriate speech Course Vital Signs Vital signs: Vital Signs Temperature 36.7 C 10/31/24 13:25 Pulse 97 H 10/31/24 13:25 Respiratory Rate 20 10/31/24 13:25 Blood Pressure 164/84 H 10/31/24 13:25 Pulse Oximetry 97 10/31/24 13:25 Temperature 36.7 C 10/31/24 13:25 Temperature Source Oral 10/31/24 13:25 Pulse 97 H 10/31/24 13:25 Respiratory Rate 20 10/31/24 13:25 Blood Pressure 164/84 H 10/31/24 13:25 Blood Pressure Position Sitting 10/31/24 13:25 Pulse Oximetry 97 10/31/24 13:25 Oxygen Delivery Method Room Air 10/31/24 13:25 Oxygen Flow Rate 0 10/31/24 13:25 Pain Level 4 10/31/24 13:25 Medical Decision Making This dictation utilizes [id number] dictation software and may contain unedited grammatical errors. 74 year-old female presents to ED today by POV/ambulating with her with a chief complaint of generalized left lower abdominal pain and some left low back pain with onset 2 weeks ago, intermittent since then. Quality described as generalized aching pain, crampy, causing poor appetite, no radiation to chest pain, fever, shortness of breath, dysuria, hematuria, black or tarry or bloody stools, liquid diarrhea, headaches. Severity is described as 4/10. Palliating factors include nothing specific attempted. Provoking factors include nothing specific. Events leading up to the incident/Associated Symptoms: Patient has a history of diverticulitis. Patients' medical history: Hyperlipidemia, history of cholecystectomy, hysterectomy, tubal ligation, diverticulitis. Family and social history: Family history of colon cancer, lives at home with , eats normal diet. Pertinent exam findings / vital signs include left lower quadrant abdominal tenderness without rebound tenderness, no Rovsing's, no CVA tenderness to percussion bilaterally, benign cardiopulmonary status, nontoxic and afebrile. Differential / pathologies of concern include diverticulitis, gastroenteritis, less likely renal colic, abdominal wall muscle strain. Diagnostic studies of: - CBC, CMP, CRP/ESR, CT ABD/pelvis with contrast, UA. - Laboratory workup negative, inflammatory markers negative, no derangements on CBC or CMP - CT shows developing acute diverticulitis Interventions of: -Rx for Levo/Flagyl due to patients allergies ED Course/Assessment/Plan: 74-year-old female presents with 2 weeks of ongoing intermittent abdominal pain anorexia, last bowel movement this morning. Laboratory workup is reassuring for no severe infection or electrolyte abnormality, inflammatory markers negative making low likelihood of inflammatory bowel disease, CT shows an acute developing diverticulitis, patient does not tolerate amoxicillin due to anaphylaxis, counseled on antibiotics for acute diverticulitis, strict return criteria for any black or bloody stools, profound weakness, intractable nausea or vomiting. Findings not consistent with abscess, perforation, sepsis, SBO. Disposition of Acute Diverticulitis. Patient verbalized understanding of the plan and return to ED criteria and engaged in shared decision making. Medical Records Medical records reviewed: Yes I reviewed the patient's medical records. Imaging Data Radiologic Study: Attestation: I personally reviewed and interpreted this imaging study as follows: Imaging: CT Scan Radiologist's impression: EXAM: CT ABDOMEN PELVIS W CLINICAL HISTORY: LLQ tenderness; hx divertic. TECHNIQUE: Imaging Protocol: Axial computed tomography images with coronal and sagittal reformatted images were created and reviewed CONTRAST MATERIAL: Intravenous: Omnipaque-350 75cc Oral: None COMPARISON: CT CT ABDOMEN PELVIS W from 04/12/[address] ABDOMEN PELVIS W from 04/26/2024 FINDINGS: VISUALIZED LUNG BASES: No nodules nor pleural effusions evident. ABDOMEN: There is no ascites. LIVER: The previously described subcapsular hemangioma in the right hepatic lobe is again noted and appears unchanged in size. Other smaller cysts or hemangiomas also noted in the right lobe. There are no dilated intrahepatic ducts. GALLBLADDER/BILIARY: The gallbladder is again noted be surgically absent. CBD is not dilated. PANCREAS: No evidence of pancreatic mass nor dilatation of the pancreatic duct. SPLEEN: Spleen is not enlarged. No obvious intrasplenic lesions. Splenic and portal veins are patent. ADRENALS: There are no significant adrenal masses. KIDNEYS:No cysts evident. No solid renal masses. No calculi nor hydronephrosis.. ABDOMINAL AORTA: Abdominal aorta is not enlarged. LYMPH NODES:There is no retroperitoneal nor paraaortic adenopathy. ABDOMINAL WALL: No evidence of significant anterior abdominal wall nor inguinal hernia. GI: There is no evidence of bowel obstruction, free air, nor abscess. PELVIS: GI: No evidence of appendicitis.There is sigmoid diverticulosis. There is a focal area in the sigmoid which exhibits some mural edema may be consistent with diverticulitis there is this was not evident on the most recent scan of 04/26/2024. May indicate developing diverticulitis. The part of the sigmoid below this level slightly to the right of center which was significantly involved on CT scan of 04/12/2024 appears unremarkable on today's study. LYMPH NODES: There is no intrapelvic nor inguinal adenopathy. REPRODUCTIVE: Uterus is surgically absent. There are no abnormal adnexal masses. URINARY BLADDER: No calculi nor obvious masses evident OSSEOUS: Degenerative anterolisthesis L4 upon L5 is again noted related to facet arthropathy. There are no pars defects at this level. IMPRESSION: 1. Subtle findings in the sigmoid which probably represent developing diverticulitis superimposed upon an area of diverticulosis. 2. Previous cholecystectomy and hysterectomy again noted. No evidence of bowel obstruction. 3. Other findings as above. Report called by myself to ER provider 10/31/2024 at 3:50 p.m. Lab Data Lab results reviewed: Yes I reviewed the patient's lab results. Labs: Laboratory Tests Range/Units 10/31/24 14:00 WBC (4.4-10.8) 10^3/uL 6.88 RBC (3.93-5.22) 10^6/uL 4.55 Hgb (11.2-15.7) g/dL 14.1 Hct (36.0-46.0) % 39.4 MCV (80-95) fL 87 MCH (27.0-33.0) pg 31.0 MCHC (32.0-36.0) % 35.8 RDW (11.7-14.6) % 11.5 L Plt Count (130-400) 10^3/uL 258 MPV (8.0-11.0) fL 9.7 Immature Gran % % 0.4 Neutrophils % % 53.7 Lymphocytes % % 30.5 Monocytes % % 7.7 Eosinophils % % 7.4 Basophils % % 0.3 Nucleated RBC % (0.0-0.3) % 0.0 Absolute Neutrophils (1.2-6.7) 10^3/uL 3.69 Absolute Lymphocytes (1.2-3.4) 10^3/uL 2.10 Absolute Monocytes (0.1-0.8) 10^3/uL 0.53 Absolute Eosinophils (0.0-0.7) 10^3/uL 0.51 Absolute Basophils (0.0-0.2) 10^3/uL 0.02 ESR (0-30) mm/hr 3 Sodium (136-145) mmol/L 133 L Potassium (3.5-5.1) mmol/L 3.7 Chloride (98-107) mmol/L 95 L Carbon Dioxide (21.0-32.0) mmol/L 30.8 Anion Gap (3-11) mmol/L 7.2 BUN (7-18) mg/dL 9 Creatinine (0.55-1.02) mg/dL 0.7 Est GFR (CKD-EPI 2020) (mL/min/1.73m2) 91.26 Glucose (74-106) mg/dL 144 H Calcium (8.5-10.1) mg/dL 9.0 Total Bilirubin (0.2-1.0) mg/dL 0.5 AST (15-37) U/L 17 ALT (14-59) U/L 17 Alkaline Phosphatase (46-116) U/L 49 C-Reactive Protein (<or=0.5) mg/dL < 0.50 Total Protein (6.4-8.2) g/dL 6.8 Albumin (3.4-5.0) g/dL 3.8 Quality:SDOH Health Related Social Needs: No Data to Display PFSH All Active Problems (Updated 10/31/24 @ 16:00 by EHSAN Ramirez) Acute diverticulitis (Acute) Encounter for screening colonoscopy (Acute) Blood in urine (Acute) Hypomagnesemia (Acute) Anxiety (Chronic) Abdominal pain (Acute) Diverticulitis of sigmoid colon (Acute) Acute diverticulitis (Acute) Status post vaginopexy (Acute) Trachelectomy, colpopexy, anterior and posterior colporrhaphy, urethral suspension with sling at [facility] 07/11/2023 Encounter for pessary maintenance (Acute) Vaginal vault prolapse after hysterectomy (Acute) Cystocele (Acute) Acute diverticulitis (Acute) Essential hypertension (Chronic) Chronic migraine (Chronic 07/07/14) Medical History (Updated 10/31/24 @ 16:00 by EHSAN Ramirez) Family history of colon cancer mother Hyperlipidemia Migraine headache with aura Osteoarthritis Hearing loss History of basal cell carcinoma Hypertension Anxiety Hip pain, right Knee pain, right History of diverticulosis Lesion of skin of face Presence of pessary Chest pain Hx of skin cancer, basal cell Surgical History (Updated 08/12/24 @ 08:53 by Kaelyn Asif) History of colonoscopy (~07/2024) [facility] recommend repeat 5-7 yrs. History of tubal ligation S/P TKR (total knee replacement) S/P hysterectomy S/P cholecystectomy Family History Mother Colon cancer Social History Smoking/Tobacco Use Status: Former Tobacco Use Smoking risk assessment performed?: Yes Alcohol Intake: never Drug use: Never Substance use type: does not use Housing: house Do you feel safe at home: Yes Do you feel safe in your relationship?: Yes History History 2 Para Hx # Term Pregnancies Multiple births Hx # Pregnancies Ectopic pregnancies AB induced Hx Number of Living Children AB spontaneous
[2024-10-31 14:14] LABS: Abs Immature Grans 0.03 10^3/uL (0.0-0.06); Absolute Basophil Count 0.02 10^3/uL (0.0-0.2); Absolute Eosinophil Count 0.51 10^3/uL (0.0-0.7); Absolute Monocyte Count 0.53 10^3/uL (0.1-0.8); Absolute Neutrophil Count 3.69 10^3/uL (1.2-6.7); Basophils % 0.3 %; Eosinophils % 7.4 %; HCT 39.4 % (36.0-46.0); HGB 14.1 g/dL (11.2-15.7); Immature Grans % 0.4 %; Lymphocytes % 30.5 %; MCHC 35.8 % (32.0-36.0); MCV 87 fL (80-95); MPV 9.7 fL (8.0-11.0); Monocytes % 7.7 %; Neutrophils % 53.7 %; Platelet Count 258 10^3/uL (130-400); RBC 4.55 10^6/uL (3.93-5.22); RDW 11.5 % (11.7-14.6); RDW-SD 36.3 fL; WBC 6.88 10^3/uL (4.4-10.8)
[2024-10-31 14:15] LABS: ESR 3 mm/hr (0-30)
[2024-10-31 14:31] LABS: ALT 17 U/L (14-59); AST 17 U/L (15-37); Albumin 3.8 g/dL (3.4-5.0); Alkaline Phosphatase 49 U/L (46-116); Anion Gap 7.2 mmol/L (3-11); BUN 9 mg/dL (7-18); Bilirubin, Total 0.5 mg/dL (0.2-1.0); C-Reactive Protein < 0.50 mg/dL (<or=0.5); CO2 30.8 mmol/L (21.0-32.0); CREATININE 0.7 mg/dL (0.55-1.02); Chloride 95 mmol/L (98-107); Estimated GFR 91.26 (mL/min/1.73m2); Glucose 144 mg/dL (74-106); Potassium 3.7 mmol/L (3.5-5.1); Sodium 133 mmol/L (136-145); Total Protein 6.8 g/dL (6.4-8.2)
[2024-10-31 14:45] VITALS: BP 164/84; PULSE 97; RESP 20; TEMP 36.7; O2SAT 97
[2024-10-31] MEDS: Omnipaque 350 MG/ML 100 ML BTL 75 ML IJ (15:27)
[2024-10-31 16:27] VITALS: BP 142/81; PULSE 68; RESP 16; O2SAT 100
== END 2024-10-31 16:28 | disposition home or self-care (01) ==
PROVIDERS: Emergency Provider Physician Assistant; PCP Nurse Practitioner Family
DX: K57.32 Diverticulitis of large intestine without perforation or abscess without bleeding (principal); I10 Essential (primary) hypertension; Z87.891 Personal history of nicotine dependence
CPT/HCPCS: 80053; 85652; 99285; 74177; 85025; 86140; 99284; J3490

== ENCOUNTER 2024-11-21 09:15 | Outpatient (REF) | payer MEDICARE, SELFPAY | END 2024-11-21 09:16 | disposition home or self-care (01) | LOC: NCHCN 09:15 | PROVIDERS: PCP Nurse Practitioner Family; Visit Provider Student in an Organized Health Care Education/Training Program | DX: R89.8 Other abnormal findings in specimens from other organs, systems and tissues (principal) | CPT/HCPCS: 87015; 87269; 87272 ==

== ENCOUNTER 2025-01-28 16:07 | Outpatient (CLI) | payer MEDICARE, SELFPAY ==
--- NOTE | 2025-01-28 | DI.MAMMO_ITS ---
Exam(s) MAMMO SCREENING EXAM: MAMMO SCREENING CLINICAL HISTORY: SCREENING MAMMO Z12.31 TECHNIQUE: Mammograms were interpreted according to the usual protocol including computer analysis with CAD system, tomosynthesis and C-view imaging. COMPARISON: 2017 and 2020 FINDINGS: The breasts are composed of scattered fibroglandular densities, Breast Density category B. No suspicious masses or suspicious microcalcifications are seen. No skin thickening or abnormal axillary lymph nodes are seen. There has been no significant change from prior exams. IMPRESSION: BI-RADS Category 1, Negative mammogram Yearly screening mammography is recommended. Breast Density - Category B - There are scattered areas of fibroglandular density. Breast density Category C or D implies that the patient has dense breast tissue. Dense breast tissue can make it harder to find cancer on a mammogram. Dense breast tissue is also associated with an increased risk of breast cancer. This information about the result of the mammogram report was provided to the patient to raise their awareness. Use this report when you speak with the patient about their risks for breast cancer, which includes their family history. At that time, you may recommend additional screening tests (Ultrasound or MRI) as these tests may add significant information. A negative radiographic report should not delay biopsy if a dominant or clinically suspicious mass is present. Up to ten percent of cancers are not identified on mammography. A negative report may reinforce clinical impression. Adenosis and dense breasts may obscure an underlying neoplasm. False positive reports average 6 to 10%. Patient will receive a letter notifying them of these results.
== END 2025-01-28 16:27 ==
LOC: DI 16:08
PROVIDERS: PCP Student in an Organized Health Care Education/Training Program; Visit Provider Student in an Organized Health Care Education/Training Program
DX: Z12.31 Encounter for screening mammogram for malignant neoplasm of breast (principal); R92.323 Mammographic fibroglandular density, bilateral breasts
CPT/HCPCS: 77063; 77067

== ENCOUNTER 2025-03-13 05:46 | Outpatient (CLI) | payer MEDICARE, SELFPAY ==
--- NOTE | 2025-03-13 | DI.DEXA_ITS ---
Exam(s) XR DEXA BONE DENSITY W/WO MAHESH EXAM: XR DEXA BONE DENSITY W/WO MAHESH CLINICAL HISTORY: Z78.0 Asymptomatic menopausal state TECHNIQUE: Hologic Horizon C densitometer analysis of left hip, lumbar spine and left forearm. Lateral survey image of the thoracic and lumbar spine. COMPARISON: DX XR DEXA BONE DENSITY W/WO MAHESH from 04/03/2018 FINDINGS: Lateral view of the thoracic and lumbar spine shows no evidence of compression fractures. Bone mineral density measurements of the lumbar spine correspond to a total T- score of -0.7, in the normal range. This is not significantly changed from the prior exam. Bone mineral density measurements of the left hip correspond to a total T-score of -1.4. This represents a 4.1 percent decrease compared to 2018. The femoral neck T-score is -2.3, in the osteopenic range.. Theleft forearm bone mineral density measurements correspond to a T-score of the distal 3rd of -2.8, in the osteoporotic range. This represents a 13.4 percent decrease compared to 2018. . IMPRESSION: Stable normal bone mineral density of the lumbar spine. Osteopenia of the left hip. Osteoporosis of the left forearm with significant decrease from 2018.
== END 2025-03-13 06:06 ==
LOC: DI 05:46
PROVIDERS: PCP Student in an Organized Health Care Education/Training Program; Visit Provider Student in an Organized Health Care Education/Training Program
DX: Z78.0 Asymptomatic menopausal state (principal); R92.323 Mammographic fibroglandular density, bilateral breasts
CPT/HCPCS: 77080

== ENCOUNTER 2025-04-29 10:34 | Outpatient (REF) | payer MEDICARE, SELFPAY | END 2025-04-29 10:35 | disposition home or self-care (01) | LOC: NCHCN 10:34 | PROVIDERS: PCP Student in an Organized Health Care Education/Training Program; Visit Provider Student in an Organized Health Care Education/Training Program | DX: I10 Essential (primary) hypertension (principal) | CPT/HCPCS: 82043; 82570 ==

== ENCOUNTER 2025-05-16 00:41 | Outpatient (CLI) | payer MEDICARE, SELFPAY ==
[2025-05-16 10:32] LABS: Vitamin D 25 Total 51 ng/mL (30-100)
== END 2025-05-16 00:42 | disposition home or self-care (01) ==
LOC: LBO 00:41
PROVIDERS: PCP Student in an Organized Health Care Education/Training Program; Visit Provider Student in an Organized Health Care Education/Training Program
DX: M81.0 Age-related osteoporosis without current pathological fracture (principal)
CPT/HCPCS: 36415; 82306; 82330